=== PATIENT | male | born 1980 | race Caucasian/White ===

== ENCOUNTER 2017-01-28 09:42 | Inpatient (IN) | payer OTHER ==
[2017-01-28 10:03] VITALS: BMI 21.1
--- NOTE | 2017-01-28 11:20 | HP ---
COWS - Scale Resting Pulse: 0= [place] 80 or Below Sweatin= Chills/Flushing Restless Observation: 1= Difficult to Sit Still Pupil Size: 0= Normal to Room Light Bone or Joint Aches: 1= Mild Discomfort Runny Nose/ Eye Tearin= Runny Nose/Eyes GI Upset > 30mins: 2= Nausea/Diarrhea Tremor Observation: 1= Tremor [place], Not Seen Yawning Observation: 1= 1-2x During Session Anxiety or Irritability: 1=Feels Anxious/Irritable Goose Flesh Skin: 0=Smooth Skin COWS Score: 10 CIWA Score - CIWA Score Nausea/Vomitin-Mild Nausea/No Vomiting Muscle Tremors: 4-Moderate,w/Arms Extend Anxiety: 4-Mod. Anxious/Guarded Agitation: 1-Slight > Activity Paroxysmal Sweats: 1-Minimal Palms Moist Orientation: 1-Uncertain about Date Tacttile Disturbances: 1-Very Mild Itch/Numbness Auditory Disturbances: 1-Very Mild Visual Disturbances: 1-Very Mild Sensitivity Headache: 2-Mild CIWA-Ar Total Score: 17 Admission ROS S - HPI Chief Complaint: I want to get off it all, I want to stop Allergies/Adverse Reactions: Allergies Allergy/AdvReac Type Severity Reaction Status Date / Time Penicillins Allergy Mild Hives Verified 01/28/17 11:37 SEAFOOD Allergy Severe Swelling Uncoded 01/28/17 11:37 History of Present Illness: 36 yo gentleman here for detox from alcohol, opiates - no seizures, last detox 7 months ago in [facility], previously here a year ago. Exam Limitations: Clinical Condition - Ebola screening Have you traveled outside of the country in the last 21 days: No Have you had contact with anyone from an Ebola affected area: No Have you been sick,other than usual withdrawal symptoms: No Do you have a fever: No - Review of Systems Constitutional: Loss of Appetite, Malaise, Night Sweats, Changes in sleep, Weakness, Unintentional Wgt. Loss EENT: reports: Nose Congestion, Other (lip sore) Respiratory: reports: No Symptoms reported Cardiac: reports: No Symptoms Reported GI: reports: Poor Appetite, Indigestion : reports: Frequency Musculoskeletal: reports: Back Pain, Muscle Pain Integumentary: reports: No Symptoms Reported Neuro: reports: Headache, Tremors Endocrine: reports: No Symptoms Reported Hematology: reports: No Symptoms Reported Psychiatric: reports: Judgement Intact, Mood/Affect Appropiate, Anxious Other Systems: Reviewed and Negative Patient History - Patient Medical History Hx Anemia: No Hx Asthma: No Hx Chronic Obstructive Pulmonary Disease (COPD): No Hx Cancer: No Hx Cardiac Disorders: No Hx Hypertension: No Hx Hypercholesterolemia: No Hx Pacemaker: No HX Cerebrovascular Accident: No Hx Seizures: No Hx Dementia: No Hx Diabetes: No Hx Gastrointestinal Disorders: Yes (acid reflux) Hx Liver Disease: Yes (Hep C ab positive) Hx Genitourinary Disorders: No Hx Sexually Transmitted Disorders: No Hx Renal Disease (ESRD): No Hx Thyroid Disease: No Hx Human Immunodeficiency Virus (HIV): No (NEGATIVE 3 MONTHS AGO) Hx Hepatitis C: Yes Hx Depression: No Hx Suicide Attempt: No Hx Bipolar Disorder: No Hx Schizophrenia: No - Patient Surgical History Past Surgical History: No Hx Neurologic Surgery: No Hx Cataract Extraction: No Hx Cardiac Surgery: No Hx Lung Surgery: No Hx Breast Surgery: No Hx Breast Biopsy: No Hx Abdominal Surgery: No Hx Appendectomy: No Hx Cholecystectomy: No Hx Genitourinary Surgery: No Hx Section: No Hx Orthopedic Surgery: No Anesthesia Reaction: No - PPD History Previous Implant?: Yes Documented Results: Negative w/o proof Implanted On Prior R Admission?: No Date: 01/21/16 Results: 0 mm PPD to be Administered?: Yes - Reproductive History Patient is a Female of Child Bearing Age (11 -55 yrs old): No (male) - Smoking Cessation Smoking history: Current every day smoker Have you smoked in the past 12 months: Yes Aproximately how many cigarettes per day: 20 If you are a former smoker, when did you quit?: 03/01/13 Cigars Per Day: 0 Hx Chewing Tobacco Use: No Initiated information on smoking cessation: Yes 'Breaking Loose' booklet given: 01/28/17 (give on floor) - Substance & Tx. History Hx Alcohol Use: Yes Hx Substance Use: Yes Substance Use Type: Alcohol, Cocaine, Heroin, Marijuana Hx Substance Use Treatment: Yes (detox, rehab) - Substances Abused Alcohol Route: Oral Frequency: Daily Amount used: six pack 16oz beer, 1 pint vodka Age of first use: 11 Date of Last Use: 01/27/17 Heroin Route: Injection Frequency: Daily Amount used: 15 bags Age of first use: 14 Date of Last Use: 01/27/17 Non-Rx Methadone Route: Oral Frequency: 1-3 times last 30 days Amount used: 40mg Age of first use: 35 Date of Last Use: 01/25/17 Cocaine Route: Injection Frequency: Daily Amount used: 1gm Age of first use: 13 Date of Last Use: 01/27/17 Marijuana/Hashish Route: Inhalation Frequency: Daily Amount used: 2 blunts Age of first use: 11 Date of Last Use: 01/27/17 Alprazolam (Xanax) Route: Oral Frequency: Daily Amount used: six mg Age of first use: 31 Date of Last Use: 01/27/17 Family Disease History - Family Disease History Family Disease History: Diabetes: Father (, HIV), Brother, Sister, Other : Mother (, hiv) Admission Physical Exam [facility] - Vital Signs Vital Signs: Vital Signs - 24 hr 01/28/17 10:00 Temperature 97.6 F Pulse Rate 77 Respiratory 18 Rate Blood Pressure 106/66 - Physical General Appearance: Yes: Nourished, Appropriately Dressed, Mild Distress, Anxious HEENTM: Yes: Hearing grossly Normal, Normal ENT Inspection, Normocephalic, Normal Voice, Other (left lower lip with ulceration) Respiratory: Yes: Normal Breath Sounds, No Respiratory Distress Neck: Yes: No masses,lesions,Nodules, Supple Breast: Yes: Breast Exam Deferred Cardiology: Yes: Regular Rhythm, Regular Rate Abdominal: Yes: Soft Genitourinary: Yes: Frequency Back: Yes: Normal Inspection Musculoskeletal: Yes: full range of Motion, Gait Steady Extremities: Yes: Normal Inspection, Normal Range of Motion, Non-Tender Neurological: Yes: Alert, Motor Strength 5/5, Normal Mood/Affect, Normal Response Integumentary: Yes: Normal Color, Warm, Track [place] Lymphatic: Yes: Within Normal Limits - Diagnostic (1) Alcohol dependence with uncomplicated withdrawal Current Visit: Yes Status: Chronic (2) Cannabis dependence Current Visit: Yes Status: Chronic (3) Cocaine dependence Current Visit: Yes Status: Chronic (4) Gastroesophageal reflux disease Current Visit: Yes Status: Chronic (5) Hepatitis C carrier Current Visit: Yes Status: Chronic (6) Nicotine dependence Current Visit: Yes Status: Chronic Qualifiers: Nicotine product type: cigarettes Substance use status: uncomplicated Qualified Code(s): F17.210 - Nicotine dependence, cigarettes, uncomplicated Comment: all dependencies acute and chronic use (7) Uncomplicated opioid dependence Current Visit: Yes Status: Chronic Cleared for Admission [facility] - Detox or Rehab [facility] Level of Care: Medically Managed Detox Regimen/Protocol: Methadone/Librium [facility] Breath Alcohol Content Breath Alcohol Content: 0 Urine Drug Screen - Results Drug Screen Negative: No Urine Drug Screen Results: THC-Marijuana, INDIGO-Cocaine, OPI-Opiates, BZO- Benzodiazepines, MTD-Methadone, OXY-Oxycodone
[2017-01-28] MEDS ORDERED: hydrOXYzine PAMOATE 50 MG CAPSULE (FP) PO PRN (11:25)
[2017-01-28] MEDS ORDERED: guaiFENesin/D-METHORPHAN HB 10 ML UNIT-DOSE CUPS PO PRN (11:25)
[2017-01-28] MEDS ORDERED: P-EPHED 60MG/TRIPROLIDI 2.5MG TABLET PO PRN (11:25)
[2017-01-28] MEDS ORDERED: NICOTINE POLACRILEX 4 MG GUM BUC PRN (11:25)
[2017-01-28] MEDS ORDERED: MAGNESIUM HYDROX 2400MG/30ML ORAL SUSPENSION 30 ML CUP PO PRN (11:25)
[2017-01-28] MEDS ORDERED: chlordiazePOXIDE HCL 25 MG CAPSULE PO PRN (11:25)
[2017-01-28] MEDS ORDERED: MAGNESIUM CITRATE 300 ML BOTTLE PO PRN (11:25)
[2017-01-28] MEDS ORDERED: MENTHOL/PHENOL 1 EACH UD MM PRN (11:25)
[2017-01-28] MEDS ORDERED: IBUPROFEN 400 MG TABLET (FP) PO PRN (11:25)
[2017-01-28] MEDS ORDERED: MAG HYDROX/AL HYDROX/SIMETH 30 ML UNIT-DOSE CUP PO PRN (11:25)
[2017-01-28] MEDS ORDERED: ACETAMINOPHEN 325 MG TABLET (FP) PO PRN (11:25)
[2017-01-28] MEDS ORDERED: chlordiazePOXIDE HCL 25 MG CAPSULE PO ONE (12:15)
[2017-01-28] MEDS ORDERED: METHADONE HCL 10 MG TABLET (FOR DETOX USE ONLY) PO ONE ×2 (12:30→23:00)
[2017-01-28] MEDS: valACYclovir HCL 500 MG TABLET (FP) PO SCH ×2 (13:20→22:34)
--- NOTE | 2017-01-28 14:46 | CONSULT ---
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 Substance Abuse History: - Smoking Cessation. Smoking history: Current every day smoker. Have you smoked in the past 12 months: Yes. Aproximately how many cigarettes per day: 20. If you are a former smoker, when did you quit?: . Cigars Per Day: 0. Hx Chewing Tobacco Use: No. Initiated information on smoking cessation: Yes. 'Breaking Loose' booklet given: 01/28/17 (give on floor ). - Substance & Tx. History. Hx Alcohol Use: Yes. Hx Substance Use: Yes. Substance Use Type: Alcohol, Cocaine, Heroin, Marijuana. Hx Substance Use Treatment: Yes (detox, rehab). - Substances Abused. Alcohol. Route: Oral. Frequency: Daily. Amount used: six pack 16oz beer, 1 pint vodka. Age of first use: 11. Date of Last Use: 01/27/17. Heroin. Route: Injection. Frequency: Daily. Amount used: 15 bags. Age of first use: 14. Date of Last Use: 01/27/17. Non-Rx Methadone. Route: Oral. Frequency: 1-3 times last 30 days. Amount used: 40mg. Age of first use: 35. Date of Last Use: . Cocaine. Route: Injection. Frequency: Daily. Amount used: 1gm. Age of first use: 13. Date of Last Use: 01/27/17. Marijuana/Hashish. Route: Inhalation. Frequency: Daily. Amount used: 2 blunts. Age of first use: 11. Date of Last Use: 01/27/17. Alprazolam (Xanax). Route: Oral. Frequency: Daily. Amount used: six mg. Age of first use: 31. Date of Last Use: . Confirmed by patient. Medical History: Hepatitis C and GERD. Psychiatric History: Patient denies. Physical/Sexual Abuse/Trauma History: Patient denies. Additional Comment: Urine Drug Screen Results: THC-Marijuana, INDIGO-Cocaine, OPI- Opiates, BZO-Benzodiazepines, MTD-Methadone, OXY-Oxycodone.Noted. Mental Status Exam - Mental Status Exam Alert and Oriented to: Time, Place, Person Cognitive Function: Good Patient Appearance: Unkempt, Disheveled Mood: Nervous, Withdrawn, Anxious Affect: Mood Congruent Patient Behavior: Fatigued, Appropriate, Cooperative Speech Pattern: Clear Voice Loudness: Normal Thought Process: Goal Oriented Thought Disorder: Not Present Hallucinations: Denies Suicidal Ideation: Denies Homicidal Ideation: Denies Insight/Judgement: Poor Sleep: Poorly, Difficulty falling asleep Appetite: Good Muscle strength/Tone: Normal Gait/Station: Normal Psychiatric Findings - Problem List ([place] 1, 2,3) (1) Alcohol dependence with uncomplicated withdrawal Current Visit: Yes Status: Acute (2) Cannabis dependence Current Visit: Yes Status: Acute (3) Cocaine dependence Current Visit: Yes Status: Acute (4) Uncomplicated opioid dependence Current Visit: Yes Status: Chronic (5) Sedative, hypnotic or anxiolytic dependence with withdrawal, uncomplicated Current Visit: Yes Status: Acute (6) Nicotine dependence Current Visit: Yes Status: Acute Qualifiers: Nicotine product type: cigarettes Substance use status: uncomplicated Qualified Code(s): F17.210 - Nicotine dependence, cigarettes, uncomplicated Comment: all dependencies acute and chronic use (7) Substance induced mood disorder Current Visit: Yes Status: Acute (8) Gastroesophageal reflux disease Current Visit: Yes Status: Chronic (9) Insomnia Current Visit: Yes Status: Chronic - Initial Treatment Plan Initial Treatment Plan: Psychoeducation.Detoxification.Seroquel 50 mg po hs ( patient's request).Side effects/benefits discussed with patient.He agres with this plan.Observation.
--- NOTE | 2017-01-28 14:59 | EKG ---
Test Reason : Blood Pressure : / mmHG Vent. Rate : 071 BPM Atrial Rate : 071 BPM P-R Int : 122 ms QRS Dur : 082 ms QT Int : 418 ms P-R-T Axes : 064 -12 030 degrees QTc Int : 454 ms NORMAL SINUS RHYTHM MINIMAL VOLTAGE CRITERIA FOR LVH, MAY BE NORMAL VARIANT NO PREVIOUS ECGS AVAILABLE Confirmed by JONH NINO MD ([id number]) on 01/28/2017 2:59:16 PM Referred By: Confirmed By:JONH NINO MD
[2017-01-28 17:15] LABS: URINE APPEARANCE CLEAR; URINE BILIRUBIN NEGATIVE (NEGATIVE); URINE BLOOD NEGATIVE (NEGATIVE); URINE COLOR YELLOW; URINE GLUCOSE (UA) NEGATIVE (NEGATIVE); URINE KETONE NEGATIVE (NEGATIVE); URINE LEUK ESTERASE NEGATIVE (NEGATIVE); URINE NITRITE NEGATIVE (NEGATIVE); URINE PROTEIN NEGATIVE (NEGATIVE); URINE UROBILINOGEN 4.0 E.U/dl E.U./dl (0.2-1.0)
[2017-01-28] MEDS: chlordiazePOXIDE HCL 25 MG CAPSULE PO SCH ×2 (17:35→22:34)
[2017-01-28] MEDS ORDERED: QUEtiapine FUMARATE 50 MG TABLET PO SCH (22:00)
[2017-01-28] MEDS ORDERED: diphenhydrAMINE HCL 50 MG CAPSULE PO PRN (22:00)
[2017-01-28] MEDS: THIAMINE HCL 100 MG TABLET (FP) PO SCH (22:33)
[2017-01-28] MEDS: QUEtiapine FUMARATE 50 MG TABLET PO SCH (22:34)
[2017-01-29] MEDS ORDERED: TRIMETHOBENZAMIDE HCL 200MG/2ML INJ IM PRN (04:20)
[2017-01-29] MEDS: chlordiazePOXIDE HCL 25 MG CAPSULE PO SCH ×4 (06:51→22:56)
[2017-01-29] MEDS ORDERED: METHADONE HCL 10 MG TABLET (FOR DETOX USE ONLY) PO SCH (10:00)
[2017-01-29] MEDS: valACYclovir HCL 500 MG TABLET (FP) PO SCH ×2 (10:18→22:56)
[2017-01-29] MEDS: PRENATAL VITAMINS W/ FOLIC ACID TABLET (FP) PO SCH (10:18)
[2017-01-29] MEDS: PANTOPRAZOLE 40 MG TABLET (FP) PO SCH (10:18)
[2017-01-29 11:19] LABS: ALBUMIN 3.1 g/dl (3.4-5.0); CALCIUM 8.5 mg/dL (8.5-10.1)
[2017-01-29 11:25] LABS: ALK PHOS 81 U/L (45-117); ANION GAP 6 (8-16); BILIRUBIN,TOTAL 0.5 mg/dL (0.2-1.0); CO2 31 mmol/L (21-32); CREATININE 0.7 mg/dL (0.7-1.3); GLUCOSE,RANDOM 102 mg/dL (74-106); SGOT/AST 38 U/L (15-37); SGPT/ALT 46 U/L (12-78); TOT PROT 7.1 g/dl (6.4-8.2)
[2017-01-29 11:40] LABS: MCH 29.3 pg (25.7-33.7); MCHC 33.5 g/dl (32.0-35.9); MEAN CELL VOLUME 87.5 fl (80-96); MEAN PLT VOLUME 9.7 fl (7.5-11.1); PLATELET COUNT 174 K/MM3 (134-434); WHITE BLOOD COUNT 8.8 K/mm3 (4.0-10.0)
[2017-01-29 11:45] LABS: HIV 1 & 2 AB NEGATIVE; HIV 1 AGp24 NEGATIVE
[2017-01-29] MEDS ORDERED: ONDANSETRON *ODT* 4 MG TABLET SL PRN (11:47)
--- NOTE | 2017-01-29 11:50 | PN ---
[facility] CIWA - CIWA Score Nausea/Vomitin Muscle Tremors: 4-Moderate,w/Arms Extend Anxiety: 4-Mod. Anxious/Guarded Agitation: 4-Moderately Restless Paroxysmal Sweats: 3 Orientation: 0-Oriented Tacttile Disturbances: 0-None Auditory Disturbances: 0-None Visual Disturbances: 0-None Headache: 0-None Present CIWA-Ar Total Score: 20 [facility] COWS - Scale Resting Pulse: 1= [place] 81-100 Sweatin=Flushed/Facial Moisture Restless Observation: 1= Difficult to Sit Still Pupil Size: 0= Normal to Room Light Bone or Joint Aches: 2= Severe Diffuse Aches Runny Nose/ Eye Tearin= Runny Nose/Eyes GI Upset > 30mins: 3= Vomiting/Diarrhea Tremor Observation of Outstretched Hands: 2= Slight Tremor Visible Yawning Observation: 1= 1-2x During Session Anxiety or Irritability: 2=Irritable/Anxious Goose Flesh Skin: 0=Smooth Skin COWS Score: 16 S Progress Note (SOAP) Subjective: Anxiety,tremors,sweating,interrupted sleep,restless,muscle aches Objective: 01/29/17 11:49 Vital Signs - 8 hr 01/29/17 01/29/17 01/29/17 03:52 06:52 11:15 Temperature 98.0 F 96.8 F L Pulse Rate 88 92 H Respiratory 18 18 20 Rate Blood Pressure 127/82 127/86 Laboratory Results - last 24 hr 01/28/17 01/29/17 01/29/17 12:23 08:00 08:00 Sodium 140 Potassium 4.2 Chloride 103 Carbon Dioxide 31 Anion Gap 6 L BUN 14 Creatinine 0.7 Creat Clearance w eGFR > 60 Random Glucose 102 Calcium 8.5 Total Bilirubin 0.5 D AST 38 H ALT 46 Alkaline Phosphatase 81 Total Protein 7.1 Albumin 3.1 L Urine Color Yellow Urine Appearance Clear Urine pH 6.0 D Ur Specific [place] 1.019 Urine Protein Negative Urine Glucose (UA) Negative Urine Ketones Negative Urine Blood Negative Urine Nitrite Negative Urine Bilirubin Negative Urine Urobilinogen 4.0 e.u/dl Ur Leukocyte Esterase Negative HIV 1&2 Antibody Screen Negative HIV P24 Antigen Negative labs noted Assessment: 01/29/17 11:50 Withdrawal sx. Plan: Continue detox
[2017-01-29] MEDS: TRIMETHOBENZAMIDE HCL 200MG/2ML INJ IM PRN (19:52)
[2017-01-29] MEDS: THIAMINE HCL 100 MG TABLET (FP) PO SCH (22:56)
[2017-01-29] MEDS: QUEtiapine FUMARATE 50 MG TABLET PO SCH (22:56)
[2017-01-30] MEDS: chlordiazePOXIDE HCL 25 MG CAPSULE PO SCH ×2 (06:22→10:26)
[2017-01-30] MEDS: LOPERAMIDE HCL 2 MG CAPSULE PO PRN ×3 (09:06→22:23)
[2017-01-30] MEDS: PRENATAL VITAMINS W/ FOLIC ACID TABLET (FP) PO SCH (10:26)
[2017-01-30] MEDS: valACYclovir HCL 500 MG TABLET (FP) PO SCH (10:26)
[2017-01-30] MEDS: METHADONE HCL 5 MG TABLET (FOR DETOX USE ONLY) PO SCH (10:26)
[2017-01-30] MEDS: PANTOPRAZOLE 40 MG TABLET (FP) PO SCH (10:26)
--- NOTE | 2017-01-30 11:43 | PN ---
[facility] CIWA - CIWA Score Nausea/Vomitin-No Nausea/No Vomiting Muscle Tremors: 4-Moderate,w/Arms Extend Anxiety: 4-Mod. Anxious/Guarded Agitation: 4-Moderately Restless Paroxysmal Sweats: 1-Minimal Palms Moist Orientation: 0-Oriented Tacttile Disturbances: 3-Moderate Itch/Numb/Burn Auditory Disturbances: 0-None Visual Disturbances: 0-None Headache: 0-None Present CIWA-Ar Total Score: 16 S COWS - Scale Resting Pulse: 1= [place] 81-100 Sweatin= Chills/Flushing Restless Observation: 3= Extraneous Movement Pupil Size: 2= Moderately Dilated Bone or Joint Aches: 4=Acute Joint/Muscle Pain Runny Nose/ Eye Tearin= Nasal Congestion GI Upset > 30mins: 1= Stomach Cramp Tremor Observation of Outstretched Hands: 1= Tremor [place], Not Seen Yawning Observation: 1= 1-2x During Session Anxiety or Irritability: 2=Irritable/Anxious Goose Flesh Skin: 0=Smooth Skin COWS Score: 17 [facility] Progress Note (SOAP) Subjective: ANXIETY,SWEATS,IRRITABILITY,NAUSEA.VOMITING,DIARRHEA,INTERMITTENT SLEEP. Objective: 01/30/17 11:44 Laboratory Last Values WBC 8.8 K/mm3 (4.0-10.0) 01/29/17 08:00 RBC 4.76 M/mm3 (4.00-5.60) 01/29/17 08:00 Hgb 13.9 GM/dL (11.7-16.9) 01/29/17 08:00 Hct 41.6 % (35.4-49) 01/29/17 08:00 MCV 87.5 fl (80-96) 01/29/17 08:00 MCHC 33.5 g/dl (32.0-35.9) 01/29/17 08:00 RDW 14.0 % (11.9-15.9) 01/29/17 08:00 Plt Count 174 K/MM3 (134-434) 01/29/17 08:00 MPV 9.7 fl (7.5-11.1) 01/29/17 08:00 Sodium 140 mmol/L (136-145) 01/29/17 08:00 Potassium 4.2 mmol/L (3.5-5.1) 01/29/17 08:00 Chloride 103 mmol/L (98-107) 01/29/17 08:00 Carbon Dioxide 31 mmol/L (21-32) 01/29/17 08:00 Anion Gap 6 (8-16) L 01/29/17 08:00 BUN 14 mg/dL (7-18) 01/29/17 08:00 Creatinine 0.7 mg/dL (0.7-1.3) 01/29/17 08:00 Creat Clearance w eGFR > 60 (>60) 01/29/17 08:00 Random Glucose 102 mg/dL (74-106) 01/29/17 08:00 Calcium 8.5 mg/dL (8.5-10.1) 01/29/17 08:00 Total Bilirubin 0.5 mg/dL (0.2-1.0) D 01/29/17 08:00 AST 38 U/L (15-37) H 01/29/17 08:00 ALT 46 U/L (12-78) 01/29/17 08:00 Alkaline Phosphatase 81 U/L (45-117) 01/29/17 08:00 Total Protein 7.1 g/dl (6.4-8.2) 01/29/17 08:00 Albumin 3.1 g/dl (3.4-5.0) L 01/29/17 08:00 Urine Color Yellow 01/28/17 12:23 Urine Appearance Clear 01/28/17 12:23 Urine pH 6.0 (5.0-8.0) D 01/28/17 12:23 Ur Specific [place] 1.019 (1.001-1.035) 01/28/17 12:23 Urine Protein Negative (NEGATIVE) 01/28/17 12:23 Urine Glucose (UA) Negative (NEGATIVE) 01/28/17 12:23 Urine Ketones Negative (NEGATIVE) 01/28/17 12:23 Urine Blood Negative (NEGATIVE) 01/28/17 12:23 Urine Nitrite Negative (NEGATIVE) 01/28/17 12:23 Urine Bilirubin Negative (NEGATIVE) 01/28/17 12:23 Urine Urobilinogen 4.0 e.u/dl E.U./dl (0.2-1.0) 01/28/17 12:23 Ur Leukocyte Esterase Negative (NEGATIVE) 01/28/17 12:23 RPR Titer Nonreactive (NONREACTIVE) 01/29/17 08:00 HIV 1&2 Antibody Screen Negative 01/29/17 08:00 HIV P24 Antigen Negative 01/29/17 08:00 Vital Signs Temperature 96.3 F L 01/30/17 11:06 Pulse Rate 89 01/30/17 11:06 Respiratory Rate 20 01/30/17 11:06 Blood Pressure 114/85 01/30/17 11:06 O2 Sat by Pulse Oximetry (%) Assessment: 01/30/17 11:45 WITHDRAWAL SX Plan: CONTINUE DETOX TIGAN AND IMODIUM DIRECTED
[2017-01-30] MEDS: chlordiazePOXIDE 5 MG CAPSULE PO SCH ×2 (17:55→22:22)
[2017-01-30] MEDS: TRIMETHOBENZAMIDE HCL 200MG/2ML INJ IM PRN (17:59)
[2017-01-30] MEDS: THIAMINE HCL 100 MG TABLET (FP) PO SCH (22:21)
[2017-01-30] MEDS: QUEtiapine FUMARATE 50 MG TABLET PO SCH (22:22)
[2017-01-31] MEDS: chlordiazePOXIDE 5 MG CAPSULE PO SCH ×2 (05:54→10:31)
[2017-01-31] MEDS: PRENATAL VITAMINS W/ FOLIC ACID TABLET (FP) PO SCH (10:31)
[2017-01-31] MEDS: METHADONE HCL 5 MG TABLET (FOR DETOX USE ONLY) PO SCH (10:31)
[2017-01-31] MEDS: PANTOPRAZOLE 40 MG TABLET (FP) PO SCH (10:31)
--- NOTE | 2017-01-31 10:31 | PN ---
[facility] Progress Note (SOAP) Subjective: NAUSEA AND VOMITING RESOLVED. DIARRHEA PERSISTS. ANXIETY,SWEATS/CHILLS. Objective: 01/31/17 10:30 Vital Signs Temperature 98.9 F 01/31/17 09:40 Pulse Rate 81 01/31/17 09:40 Respiratory Rate 16 01/31/17 09:40 Blood Pressure 117/70 01/31/17 09:40 O2 Sat by Pulse Oximetry (%) Laboratory Last Values WBC 8.8 K/mm3 (4.0-10.0) 01/29/17 08:00 RBC 4.76 M/mm3 (4.00-5.60) 01/29/17 08:00 Hgb 13.9 GM/dL (11.7-16.9) 01/29/17 08:00 Hct 41.6 % (35.4-49) 01/29/17 08:00 MCV 87.5 fl (80-96) 01/29/17 08:00 MCHC 33.5 g/dl (32.0-35.9) 01/29/17 08:00 RDW 14.0 % (11.9-15.9) 01/29/17 08:00 Plt Count 174 K/MM3 (134-434) 01/29/17 08:00 MPV 9.7 fl (7.5-11.1) 01/29/17 08:00 Sodium 140 mmol/L (136-145) 01/29/17 08:00 Potassium 4.2 mmol/L (3.5-5.1) 01/29/17 08:00 Chloride 103 mmol/L (98-107) 01/29/17 08:00 Carbon Dioxide 31 mmol/L (21-32) 01/29/17 08:00 Anion Gap 6 (8-16) L 01/29/17 08:00 BUN 14 mg/dL (7-18) 01/29/17 08:00 Creatinine 0.7 mg/dL (0.7-1.3) 01/29/17 08:00 Creat Clearance w eGFR > 60 (>60) 01/29/17 08:00 Random Glucose 102 mg/dL (74-106) 01/29/17 08:00 Calcium 8.5 mg/dL (8.5-10.1) 01/29/17 08:00 Total Bilirubin 0.5 mg/dL (0.2-1.0) D 01/29/17 08:00 AST 38 U/L (15-37) H 01/29/17 08:00 ALT 46 U/L (12-78) 01/29/17 08:00 Alkaline Phosphatase 81 U/L (45-117) 01/29/17 08:00 Total Protein 7.1 g/dl (6.4-8.2) 01/29/17 08:00 Albumin 3.1 g/dl (3.4-5.0) L 01/29/17 08:00 Urine Color Yellow 01/28/17 12:23 Urine Appearance Clear 01/28/17 12:23 Urine pH 6.0 (5.0-8.0) D 01/28/17 12:23 Ur Specific [place] 1.019 (1.001-1.035) 01/28/17 12:23 Urine Protein Negative (NEGATIVE) 01/28/17 12:23 Urine Glucose (UA) Negative (NEGATIVE) 01/28/17 12:23 Urine Ketones Negative (NEGATIVE) 01/28/17 12:23 Urine Blood Negative (NEGATIVE) 01/28/17 12:23 Urine Nitrite Negative (NEGATIVE) 01/28/17 12:23 Urine Bilirubin Negative (NEGATIVE) 01/28/17 12:23 Urine Urobilinogen 4.0 e.u/dl E.U./dl (0.2-1.0) 01/28/17 12:23 Ur Leukocyte Esterase Negative (NEGATIVE) 01/28/17 12:23 RPR Titer Nonreactive (NONREACTIVE) 01/29/17 08:00 Hepatitis C Antibody >11.0 s/co ratio (0.0-0.9) H 01/29/17 08:00 HIV 1&2 Antibody Screen Negative 01/29/17 08:00 HIV P24 Antigen Negative 01/29/17 08:00 LABS NOTED. HEP C (+) HX Assessment: 01/31/17 10:30 WITHDRAWAL SX Plan: CONTINUE DETOX D/C IMODIUM LOMOTIL DIRECTED
[2017-01-31] MEDS ORDERED: DIPHENOXYLATE 2.5/ATROPINE.025 1 COMBO TABLET PO PRN (10:32)
[2017-01-31] MEDS: chlordiazePOXIDE HCL 10 MG CAPSULE PO SCH ×2 (17:36→22:29)
[2017-01-31] MEDS: THIAMINE HCL 100 MG TABLET (FP) PO SCH (22:29)
[2017-01-31] MEDS: QUEtiapine FUMARATE 50 MG TABLET PO SCH (22:30)
[2017-02-01] MEDS: chlordiazePOXIDE HCL 10 MG CAPSULE PO SCH ×2 (05:55→10:27)
[2017-02-01] MEDS ORDERED: METHADONE HCL 10 MG TABLET (FOR DETOX USE ONLY) PO SCH (10:00)
[2017-02-01] MEDS: PANTOPRAZOLE 40 MG TABLET (FP) PO SCH (10:27)
[2017-02-01] MEDS: PRENATAL VITAMINS W/ FOLIC ACID TABLET (FP) PO SCH (10:27)
--- NOTE | 2017-02-01 11:21 | PN ---
[facility] Progress Note (SOAP) Subjective: N/V/D RESOLVED. ANXIETY,SWEATS/CHILLS. Objective: 02/01/17 11:21 Vital Signs Temperature 97.7 F 02/01/17 09:40 Pulse Rate 88 02/01/17 09:40 Respiratory Rate 18 02/01/17 09:40 Blood Pressure 105/68 02/01/17 09:40 O2 Sat by Pulse Oximetry (%) Assessment: 02/01/17 11:21 WITHDRAWAL SX Plan: CONTINUE DETOX
[2017-02-01] MEDS: THIAMINE HCL 100 MG TABLET (FP) PO SCH (22:30)
[2017-02-01] MEDS: QUEtiapine FUMARATE 50 MG TABLET PO SCH (22:30)
[2017-02-02] MEDS ORDERED: METHADONE HCL 5 MG TABLET (FOR DETOX USE ONLY) PO SCH (06:00)
[2017-02-02 06:53] VITALS: BP 101/62; PULSE 78; TEMP 97.2
--- NOTE | 2017-02-02 09:50 | DS ---
[facility] Detox Discharge Summary Admission Date: 01/28/17 Discharge Date: 02/02/17 - History Present History: Alcohol Dependence, Cannabis Dependence, Cocaine Dependence, Opioid Dependence, Sedative Dependence Additional Comments: DETOX COMPLETED. ALERT O X 3. NAD. Pertinent Past History: HEPATITIS C - Physical Exam Results Vital Signs: Vital Signs Temperature 97.2 F L 02/02/17 06:53 Pulse Rate 78 02/02/17 06:53 Respiratory Rate 18 02/02/17 06:53 Blood Pressure 101/62 02/02/17 06:53 O2 Sat by Pulse Oximetry (%) Pertinent Admission Physical Exam Findings: WITHDRAWAL SX - Treatment Hospital Course: Detox Protocol Followed, Detoxed Safely, Responded well, Discharged Condition Good - Medication Discharge Medications: Ambulatory Orders Pantoprazole Sodium [Protonix -] 40 mg PO DAILY 01/28/17 Quetiapine Fumarate [Seroquel -] 50 mg PO HS #30 tablet 01/28/17 - Diagnosis (1) Alcohol dependence with uncomplicated withdrawal Status: Acute (2) Sedative, hypnotic or anxiolytic dependence with withdrawal, uncomplicated Status: Acute (3) Opioid dependence with uncomplicated intoxication Status: Chronic (4) Nicotine dependence Status: Acute Qualifiers: Nicotine product type: cigarettes Substance use status: in withdrawal Qualified Code(s): F17.213 - Nicotine dependence, cigarettes, with withdrawal (5) Gastroesophageal reflux disease Status: Chronic (6) Hepatitis C carrier Status: Chronic (7) Cocaine dependence, uncomplicated Status: Acute (8) Cannabis dependence, uncomplicated Status: Acute (9) Substance induced mood disorder Status: Acute (10) Insomnia Status: Chronic - AMA Did Patient Leave Against Medical Advice: No
== END 2017-02-02 09:15 | disposition home or self-care (01) | DRG 773 ==
LOC: YASAS 09:42 → Y3N 11:58
PROVIDERS: ADMIT Internal Medicine; ATTEND Internal Medicine
PROC: HZ2ZZZZ Detoxification Services for Substance Abuse Treatment (ICD-10-PCS; principal; 2017-02-02)
DX: F11.20 Opioid dependence, uncomplicated (principal); F13.230 Sedative, hypnotic or anxiolytic dependence with withdrawal, uncomplicated; F10.230 Alcohol dependence with withdrawal, uncomplicated; F17.213 Nicotine dependence, cigarettes, with withdrawal; F14.20 Cocaine dependence, uncomplicated; F12.20 Cannabis dependence, uncomplicated; F19.24 Other psychoactive substance dependence with psychoactive substance-induced mood disorder; G47.00 Insomnia, unspecified; B18.2 Chronic viral hepatitis C
CPT/HCPCS: 36415; 80053; 81003; 85027; 86593; 87389; 93005; 93010

== ENCOUNTER 2017-03-09 09:42 | Inpatient (IN) | payer OTHER ==
[2017-03-09 10:55] VITALS: BMI 22.5
--- NOTE | 2017-03-09 12:24 | HP ---
COWS - Scale Resting Pulse: 0= [place] 80 or Below Sweatin=Flushed/Facial Moisture Restless Observation: 1= Difficult to Sit Still Pupil Size: 2= Moderately Dilated Bone or Joint Aches: 2= Severe Diffuse Aches Runny Nose/ Eye Tearin= Runny Nose/Eyes GI Upset > 30mins: 2= Nausea/Diarrhea Tremor Observation: 2= Slight Tremor Visible Yawning Observation: 1= 1-2x During Session Anxiety or Irritability: 2=Irritable/Anxious Goose Flesh Skin: 0=Smooth Skin COWS Score: 16 CIWA Score - CIWA Score Nausea/Vomitin Muscle Tremors: 4-Moderate,w/Arms Extend Anxiety: 4-Mod. Anxious/Guarded Agitation: 4-Moderately Restless Paroxysmal Sweats: 3 Orientation: 0-Oriented Tacttile Disturbances: 0-None Auditory Disturbances: 0-None Visual Disturbances: 0-None Headache: 1-Very Mild CIWA-Ar Total Score: 18 Admission ROS BHS - HPI Chief Complaint: Withdrawal sx. Allergies/Adverse Reactions: Allergies Allergy/AdvReac Type Severity Reaction Status Date / Time shellfish derived Allergy Severe Swelling Verified 03/09/17 11:18 Penicillins Allergy Mild Hives Verified 03/09/17 11:17 SHELLFISH Allergy Severe Swelling Uncoded 03/09/17 11:18 History of Present Illness: 36 y/o man with a long hx. of drug & alcohol dependence is admitted for detox. Pt. has been in previous detox, denies significant sobriety. Exam Limitations: No Limitations - Ebola screening Have you traveled outside of the country in the last 21 days: No Have you had contact with anyone from an Ebola affected area: No Have you been sick,other than usual withdrawal symptoms: No Do you have a fever: No - Review of Systems Constitutional: Diaphoresis EENT: reports: Nose Congestion Respiratory: reports: No Symptoms reported Cardiac: reports: No Symptoms Reported GI: reports: Diarrhea, Nausea, Abdominal cramping : reports: No Symptoms Reported Musculoskeletal: reports: Muscle Pain Integumentary: reports: Sweating Neuro: reports: Headache, Tremors Endocrine: reports: No Symptoms Reported Hematology: reports: No Symptoms Reported Psychiatric: reports: No Sypmtoms Reported Other Systems: Reviewed and Negative Patient History - Patient Medical History Hx Anemia: No Hx Asthma: No Hx Chronic Obstructive Pulmonary Disease (COPD): No Hx Cancer: No Hx Cardiac Disorders: No Hx Congestive Heart Failure: No Hx Hypertension: No Hx Hypercholesterolemia: No Hx Pacemaker: No HX Cerebrovascular Accident: No Hx Seizures: No Hx Dementia: No Hx Diabetes: No Hx Gastrointestinal Disorders: Yes (acid reflux) Hx Liver Disease: Yes (Hep C ab positive) Hx Genitourinary Disorders: No Hx Sexually Transmitted Disorders: No Hx Renal Disease (ESRD): No Hx Thyroid Disease: No Hx Human Immunodeficiency Virus (HIV): No Hx Hepatitis C: Yes Hx Depression: No Hx Suicide Attempt: No Hx Bipolar Disorder: No Hx Schizophrenia: No Other Medical History: Insomnia - Patient Surgical History Past Surgical History: No Hx Neurologic Surgery: No Hx Cataract Extraction: No Hx Cardiac Surgery: No Hx Lung Surgery: No Hx Breast Surgery: No Hx Breast Biopsy: No Hx Abdominal Surgery: No Hx Appendectomy: No Hx Cholecystectomy: No Hx Genitourinary Surgery: No Hx Section: No Hx Orthopedic Surgery: No Anesthesia Reaction: No - PPD History Previous Implant?: Yes Documented Results: Negative w/proof Implanted On Prior R Admission?: Yes Date: 01/30/17 Results: 0 mm PPD to be Administered?: No - Smoking Cessation Smoking history: Current every day smoker Have you smoked in the past 12 months: Yes Aproximately how many cigarettes per day: 20 Cigars Per Day: 0 Hx Chewing Tobacco Use: No Initiated information on smoking cessation: Yes 'Breaking Loose' booklet given: 03/09/17 - Substance & Tx. History Hx Alcohol Use: Yes Hx Substance Use: Yes Substance Use Type: Alcohol, Cocaine, Heroin, Tranquilizers Hx Substance Use Treatment: Yes (Detox & Rehab) - Substances Abused Heroin Route: Injection Frequency: Daily Amount used: 15 bags Age of first use: 14 Date of Last Use: 03/08/17 Cocaine Route: Injection Frequency: Daily Amount used: $60-70 Age of first use: 13 Date of Last Use: 03/08/17 Xanax Route: Oral Frequency: Daily Amount used: 4 mg. Age of first use: 31 Date of Last Use: 03/08/17 Alcohol-beer/vodka Route: Oral Frequency: Daily Amount used: 1-6 pk./1 pt. Age of first use: 11 Date of Last Use: 03/08/17 Marijuana Route: Smoking Frequency: Daily Amount used: $10 Age of first use: 11 Date of Last Use: 03/08/17 Family Disease History - Family Disease History Family Disease History: Diabetes: Father (, HIV), Brother, Sister, Other : Father, Mother (, hiv) Admission Physical Exam [facility] - Vital Signs Vital Signs: Vital Signs - 24 hr 03/09/17 10:49 Temperature 96.7 F L Pulse Rate 52 L Respiratory 18 Rate Blood Pressure 141/85 - Physical General Appearance: Yes: Tremorous, Irritable, Sweating, Anxious HEENTM: Yes: Nasal Congestion, Rhinorrhea Respiratory: Yes: Chest Non-Tender, Lungs Clear, Normal Breath Sounds Neck: Yes: Supple Breast: Yes: Breast Exam Deferred Cardiology: Yes: Regular Rhythm, Regular Rate, S1, S2 Abdominal: Yes: Normal Bowel Sounds, Non Tender, Soft Genitourinary: Yes: Within Normal Limits Back: Yes: Within Normal Limits Musculoskeletal: Yes: Muscle Pain Extremities: Yes: Tremors Neurological: Yes: Fully Oriented, Alert Integumentary: Yes: Diaphoresis, Track [place] Lymphatic: Yes: Within Normal Limits - Diagnostic (1) Alcohol dependence with uncomplicated withdrawal Current Visit: Yes Status: Acute (2) Cannabis dependence, uncomplicated Current Visit: Yes Status: Acute (3) Cocaine dependence, uncomplicated Current Visit: Yes Status: Acute (4) Sedative, hypnotic or anxiolytic dependence with withdrawal, uncomplicated Current Visit: Yes Status: Acute (5) Gastroesophageal reflux disease Current Visit: Yes Status: Chronic (6) Hepatitis C carrier Current Visit: No Status: Chronic (7) Opioid dependence with withdrawal Current Visit: Yes Status: Acute Cleared for Admission [facility] - Detox or Rehab [facility] Level of Care: Medically Managed Detox Regimen/Protocol: Methadone/Valium [facility] Breath Alcohol Content Breath Alcohol Content: 0 Urine Drug Screen - Results Drug Screen Negative: No Urine Drug Screen Results: THC-Marijuana, INDIGO-Cocaine, OPI-Opiates, BZO- Benzodiazepines
[2017-03-09] MEDS ORDERED: IBUPROFEN 400 MG TABLET (FP) PO PRN (12:33)
[2017-03-09] MEDS ORDERED: P-EPHED 60MG/TRIPROLIDI 2.5MG TABLET PO PRN (12:33)
[2017-03-09] MEDS ORDERED: MAG HYDROX/AL HYDROX/SIMETH 30 ML UNIT-DOSE CUP PO PRN (12:33)
[2017-03-09] MEDS ORDERED: diphenhydrAMINE HCL 50 MG CAPSULE PO PRN (12:33)
[2017-03-09] MEDS ORDERED: ACETAMINOPHEN 325 MG TABLET (FP) PO PRN (12:33)
[2017-03-09] MEDS ORDERED: hydrOXYzine PAMOATE 50 MG CAPSULE (FP) PO PRN (12:33)
[2017-03-09] MEDS ORDERED: NICOTINE POLACRILEX 2 MG GUM BUC PRN (12:33)
[2017-03-09] MEDS ORDERED: MAGNESIUM CITRATE 300 ML BOTTLE PO PRN (12:33)
[2017-03-09] MEDS ORDERED: guaiFENesin/D-METHORPHAN HB 10 ML UNIT-DOSE CUPS PO PRN (12:33)
[2017-03-09] MEDS ORDERED: LOPERAMIDE HCL 2 MG CAPSULE PO PRN (12:33)
[2017-03-09] MEDS ORDERED: MENTHOL/PHENOL 1 EACH UD MM PRN (12:33)
[2017-03-09] MEDS ORDERED: MAGNESIUM HYDROX 2400MG/30ML ORAL SUSPENSION 30 ML CUP PO PRN (12:33)
[2017-03-09] MEDS ORDERED: diazePAM 5 MG TABLET PO ONE (13:02)
[2017-03-09] MEDS ORDERED: METHADONE HCL 10 MG TABLET (FOR DETOX USE ONLY) PO ONE ×2 (13:04→23:00)
[2017-03-09] MEDS: PANTOPRAZOLE 40 MG TABLET (FP) PO SCH (14:05)
[2017-03-09] MEDS: diazePAM 5 MG TABLET PO SCH ×2 (14:07→22:20)
[2017-03-09] MEDS: NICOTINE 21 MG/24 HOURS TOPICAL PATCH TD SCH (14:07)
[2017-03-09] MEDS: diazePAM 5 MG TABLET PO PRN (17:48)
[2017-03-09] MEDS: THIAMINE HCL 100 MG TABLET (FP) PO SCH (22:20)
[2017-03-10] MEDS: diazePAM 5 MG TABLET PO SCH ×3 (08:23→22:16)
[2017-03-10] MEDS ORDERED: METHADONE HCL 10 MG TABLET (FOR DETOX USE ONLY) PO SCH (10:00)
[2017-03-10] MEDS: PANTOPRAZOLE 40 MG TABLET (FP) PO SCH (10:39)
[2017-03-10] MEDS: PRENATAL VITAMINS W/ FOLIC ACID TABLET (FP) PO SCH (10:39)
[2017-03-10] MEDS: diazePAM 5 MG TABLET PO PRN ×2 (10:40→17:23)
[2017-03-10] MEDS: NICOTINE 21 MG/24 HOURS TOPICAL PATCH TD SCH (10:41)
[2017-03-10 11:21] LABS: MCH 28.5 pg (25.7-33.7); MCHC 32.6 g/dl (32.0-35.9); MEAN CELL VOLUME 87.5 fl (80-96); PLATELET COUNT 221 K/MM3 (134-434); RDW 14.2 % (11.9-15.9); WHITE BLOOD COUNT 5.5 K/mm3 (4.0-10.0)
--- NOTE | 2017-03-10 11:28 | EKG ---
Test Reason : Blood Pressure : / mmHG Vent. Rate : 061 BPM Atrial Rate : 061 BPM P-R Int : 112 ms QRS Dur : 090 ms QT Int : 430 ms P-R-T Axes : 066 -14 037 degrees QTc Int : 432 ms NORMAL SINUS RHYTHM WHEN COMPARED WITH ECG OF 28-JAN-2017 13:02, T WAVE AMPLITUDE HAS DECREASED IN LATERAL LEADS Confirmed by JONH NINO MD ([id number]) on 03/10/2017 11:28:20 AM Referred By: Confirmed By:JONH NINO MD
[2017-03-10 11:43] LABS: ALBUMIN 3.8 g/dl (3.4-5.0); ALK PHOS 90 U/L (45-117); ANION GAP 6 (8-16); BILIRUBIN,TOTAL 0.7 mg/dL (0.2-1.0); CALCIUM 9.1 mg/dL (8.5-10.1); CO2 31 mmol/L (21-32); COCKROFT - GAULT 102.81; CREATININE 0.9 mg/dL (0.7-1.3); GLUCOSE,RANDOM 129 mg/dL (74-106); SGOT/AST 47 U/L (15-37); SGPT/ALT 45 U/L (12-78); TOT PROT 8.2 g/dl (6.4-8.2)
[2017-03-10 12:05] LABS: HIV 1 & 2 AB NEGATIVE; HIV 1 AGp24 NEGATIVE
--- NOTE | 2017-03-10 12:57 | CONSULT ---
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 Substance Abuse History: - Smoking Cessation. Smoking history: Current every day smoker. Have you smoked in the past 12 months: Yes. Aproximately how many cigarettes per day: 20. Cigars Per Day: 0. Hx Chewing Tobacco Use: No. Initiated information on smoking cessation: Yes. 'Breaking Loose' booklet given : 03/09/17. - Substance & Tx. History. Hx Alcohol Use: Yes. Hx Substance Use : Yes. Substance Use Type: Alcohol, Cocaine, Heroin, Tranquilizers. Hx Substance Use Treatment: Yes (Detox & Rehab). - Substances Abused. Heroin. Route: Injection. Frequency: Daily. Amount used: 15 bags. Age of first use : 14. Date of Last Use: 03/08/17. Cocaine. Route: Injection. Frequency: Daily. Amount used: $60-70. Age of first use: 13. Date of Last Use: . Xanax. Route: Oral. Frequency: Daily. Amount used: 4 mg. Age of first use: 31. Date of Last Use: 03/08/17. Alcohol-beer/vodka. Route: Oral. Frequency: Daily. Amount used: 1-6 pk./1 pt. Age of first use: 11. Date of Last Use: 03/08/17. Marijuana. Route: Smoking. Frequency: Daily. Amount used: $10. Age of first use: 11. Date of Last Use: 03/08/17. Confirmed by patient. Medical History: Hepatitis C,GERD and cirrhosis of the liver. Psychiatric History: Patient denies. Physical/Sexual Abuse/Trauma History: Patient denies. Additional Comment: Urine Drug Screen Results: THC-Marijuana, INDIGO-Cocaine, OPI- Opiates, BZO-Benzodiazepines.Noted. Mental Status Exam - Mental Status Exam Alert and Oriented to: Time, Place, Person Cognitive Function: Good Patient Appearance: Well Groomed Mood: Hopeful, Euthymic Affect: Appropriate, Normal Range Patient Behavior: Fatigued, Appropriate, Cooperative Speech Pattern: Clear, Appropriate Voice Loudness: Normal Thought Process: Goal Oriented Thought Disorder: Not Present Hallucinations: Denies Suicidal Ideation: Denies Homicidal Ideation: Denies Insight/Judgement: Poor Sleep: Poorly, Difficulty falling asleep (requests 50 mg of seroquel at bedtime) Appetite: Good Muscle strength/Tone: Normal Gait/Station: Normal Psychiatric Findings - Problem List ([place] 1, 2,3) (1) Alcohol dependence with uncomplicated withdrawal Current Visit: Yes Status: Acute (2) Cannabis dependence, uncomplicated Current Visit: Yes Status: Acute (3) Cocaine dependence, uncomplicated Current Visit: Yes Status: Acute (4) Opioid dependence with withdrawal Current Visit: Yes Status: Acute (5) Sedative, hypnotic or anxiolytic dependence with withdrawal, uncomplicated Current Visit: Yes Status: Acute (6) Nicotine dependence Current Visit: Yes Status: Acute Qualifiers: Nicotine product type: cigarettes Substance use status: in withdrawal Qualified Code(s): F17.213 - Nicotine dependence, cigarettes, with withdrawal Comment: all dependencies acute and chronic use (7) Drug-induced mood disorder Current Visit: Yes Status: Acute (8) Substance induced mood disorder Current Visit: Yes Status: Acute (9) Gastroesophageal reflux disease Current Visit: Yes Status: Chronic (10) Hepatitis C carrier Current Visit: Yes Status: Chronic (11) Insomnia Current Visit: Yes Status: Acute - Initial Treatment Plan Initial Treatment Plan: Psychoeducation.Detoxification.Seroquel 50 mg po hs.Side effects/benefits discussed with the patient.He agrees with this careplan.Observation.
--- NOTE | 2017-03-10 12:58 | PN ---
S CIWA - CIWA Score Nausea/Vomitin Muscle Tremors: 4-Moderate,w/Arms Extend Anxiety: 2 Agitation: 1-Slight > Activity Paroxysmal Sweats: 3 Orientation: 0-Oriented Tacttile Disturbances: 0-None Auditory Disturbances: 0-None Visual Disturbances: 3-Moderate Sensitivity Headache: 0-None Present CIWA-Ar Total Score: 15 BHS COWS - Scale Resting Pulse: 0= [place] 80 or Below Sweatin= Chills/Flushing Restless Observation: 1= Difficult to Sit Still Pupil Size: 0= Normal to Room Light Bone or Joint Aches: 2= Severe Diffuse Aches Runny Nose/ Eye Tearin= Nasal Congestion GI Upset > 30mins: 2= Nausea/Diarrhea Tremor Observation of Outstretched Hands: 2= Slight Tremor Visible Yawning Observation: 0= None Anxiety or Irritability: 2=Irritable/Anxious Goose Flesh Skin: 3=Piloerection COWS Score: 14 BHS Progress Note (SOAP) Subjective: Interrupted Sleep, Sweating, Stomach Cramps, Diarrhea. Objective: PT. A & O X 3. 03/10/17 12:57 Vital Signs Temperature 98.2 F 03/10/17 11:58 Pulse Rate 73 03/10/17 11:58 Respiratory Rate 18 03/10/17 11:58 Blood Pressure 140/92 03/10/17 11:58 O2 Sat by Pulse Oximetry (%) Laboratory Last Values WBC 5.5 K/mm3 (4.0-10.0) D 03/10/17 06:00 RBC 5.30 M/mm3 (4.00-5.60) 03/10/17 06:00 Hgb 15.1 GM/dL (11.7-16.9) 03/10/17 06:00 Hct 46.4 % (35.4-49) 03/10/17 06:00 MCV 87.5 fl (80-96) 03/10/17 06:00 MCHC 32.6 g/dl (32.0-35.9) 03/10/17 06:00 RDW 14.2 % (11.9-15.9) 03/10/17 06:00 Plt Count 221 K/MM3 (134-434) D 03/10/17 06:00 MPV 10.0 fl (7.5-11.1) 03/10/17 06:00 Sodium 139 mmol/L (136-145) 03/10/17 06:00 Potassium 4.3 mmol/L (3.5-5.1) 03/10/17 06:00 Chloride 102 mmol/L (98-107) 03/10/17 06:00 Carbon Dioxide 31 mmol/L (21-32) 03/10/17 06:00 Anion Gap 6 (8-16) L 03/10/17 06:00 BUN 8 mg/dL (7-18) D 03/10/17 06:00 Creatinine 0.9 mg/dL (0.7-1.3) D 03/10/17 06:00 Creat Clearance w eGFR > 60 (>60) 03/10/17 06:00 Random Glucose 129 mg/dL (74-106) H D 03/10/17 06:00 Calcium 9.1 mg/dL (8.5-10.1) 03/10/17 06:00 Total Bilirubin 0.7 mg/dL (0.2-1.0) D 03/10/17 06:00 AST 47 U/L (15-37) H D 03/10/17 06:00 ALT 45 U/L (12-78) 03/10/17 06:00 Alkaline Phosphatase 90 U/L (45-117) 03/10/17 06:00 Total Protein 8.2 g/dl (6.4-8.2) 03/10/17 06:00 Albumin 3.8 g/dl (3.4-5.0) D 03/10/17 06:00 RPR Titer Nonreactive (NONREACTIVE) 03/10/17 06:00 HIV 1&2 Antibody Screen Negative 03/09/17 06:00 HIV P24 Antigen Negative 03/09/17 06:00 LABS NOTED. Assessment: 03/10/17 12:58 WITHDRAWAL SYMPTOMS. Plan: CONTINUE DETOX. PRN IMMODIUM FOR DIARRHEA. ADVISED PATIENT TO FOLLOW-UP WITH DIGITAL STRATEGIST SENIOR MANAGER / REHAB MEDICAL PROVIDER AFTER DISCHARGE FROM DETOX FOR GENERAL MEDICAL ASSESSMENT AND FOR ABNORMAL ADMISSION LAB VALUES.
[2017-03-10] MEDS ORDERED: QUEtiapine FUMARATE 50 MG TABLET PO SCH (22:00)
[2017-03-10] MEDS: THIAMINE HCL 100 MG TABLET (FP) PO SCH (22:16)
[2017-03-11] MEDS ORDERED: diazePAM 5 MG TABLET PO SCH (10:00)
[2017-03-11] MEDS ORDERED: METHADONE HCL 5 MG TABLET (FOR DETOX USE ONLY) PO SCH (10:00)
[2017-03-11] MEDS: PANTOPRAZOLE 40 MG TABLET (FP) PO SCH (10:23)
[2017-03-11] MEDS: PRENATAL VITAMINS W/ FOLIC ACID TABLET (FP) PO SCH (10:23)
[2017-03-11] MEDS: NICOTINE 21 MG/24 HOURS TOPICAL PATCH TD SCH (10:24)
[2017-03-11 10:50] VITALS: TEMP 97
[2017-03-11 10:52] VITALS: BP 151/84; PULSE 70
--- NOTE | 2017-03-11 14:39 | DS ---
[facility] Detox Discharge Summary Admission Date: 03/09/17 Discharge Date: 03/11/17 - History Present History: Alcohol Dependence, Cannabis Dependence, Cocaine Dependence, Opioid Dependence, Sedative Dependence Additional Comments: ADVISED PATIENT TO FOLLOW-UP WITH [facility] FOR GENERAL MEDICAL ASSESSMENT. Pertinent Past History: Insomnia, GERD, Hep C. - Physical Exam Results Vital Signs: Vital Signs Temperature 97.0 F L 03/11/17 10:49 Pulse Rate 70 03/11/17 10:49 Respiratory Rate 18 03/11/17 10:49 Blood Pressure 151/84 03/11/17 10:49 O2 Sat by Pulse Oximetry (%) Pertinent Admission Physical Exam Findings: WITHDRAWAL SYMPTOMS. Laboratory Last Values WBC 5.5 K/mm3 (4.0-10.0) D 03/10/17 06:00 RBC 5.30 M/mm3 (4.00-5.60) 03/10/17 06:00 Hgb 15.1 GM/dL (11.7-16.9) 03/10/17 06:00 Hct 46.4 % (35.4-49) 03/10/17 06:00 MCV 87.5 fl (80-96) 03/10/17 06:00 MCHC 32.6 g/dl (32.0-35.9) 03/10/17 06:00 RDW 14.2 % (11.9-15.9) 03/10/17 06:00 Plt Count 221 K/MM3 (134-434) D 03/10/17 06:00 MPV 10.0 fl (7.5-11.1) 03/10/17 06:00 Sodium 139 mmol/L (136-145) 03/10/17 06:00 Potassium 4.3 mmol/L (3.5-5.1) 03/10/17 06:00 Chloride 102 mmol/L (98-107) 03/10/17 06:00 Carbon Dioxide 31 mmol/L (21-32) 03/10/17 06:00 Anion Gap 6 (8-16) L 03/10/17 06:00 BUN 8 mg/dL (7-18) D 03/10/17 06:00 Creatinine 0.9 mg/dL (0.7-1.3) D 03/10/17 06:00 Creat Clearance w eGFR > 60 (>60) 03/10/17 06:00 Random Glucose 129 mg/dL (74-106) H D 03/10/17 06:00 Calcium 9.1 mg/dL (8.5-10.1) 03/10/17 06:00 Total Bilirubin 0.7 mg/dL (0.2-1.0) D 03/10/17 06:00 AST 47 U/L (15-37) H D 03/10/17 06:00 ALT 45 U/L (12-78) 03/10/17 06:00 Alkaline Phosphatase 90 U/L (45-117) 03/10/17 06:00 Total Protein 8.2 g/dl (6.4-8.2) 03/10/17 06:00 Albumin 3.8 g/dl (3.4-5.0) D 03/10/17 06:00 RPR Titer Nonreactive (NONREACTIVE) 03/10/17 06:00 HIV 1&2 Antibody Screen Negative 03/09/17 06:00 HIV P24 Antigen Negative 03/09/17 06:00 LABS NOTED. - Treatment Hospital Course: Detoxed Safely - Medication Discharge Medications: Ambulatory Orders Pantoprazole Sodium [Protonix -] 40 mg PO DAILY 01/28/17 Quetiapine Fumarate [Seroquel -] 50 mg PO HS #30 tablet 01/28/17 Quetiapine Fumarate [Seroquel -] 50 mg PO HS #30 tablet 03/10/17 - Diagnosis (1) Alcohol dependence with uncomplicated withdrawal Status: Acute (2) Cannabis dependence, uncomplicated Status: Acute (3) Cocaine dependence, uncomplicated Status: Acute (4) Drug-induced mood disorder Status: Acute (5) Insomnia Status: Chronic Qualifiers: Insomnia type: unspecified Qualified Code(s): G47.00 - Insomnia, unspecified (6) Nicotine dependence Status: Chronic Qualifiers: Nicotine product type: cigarettes Substance use status: in withdrawal Qualified Code(s): F17.213 - Nicotine dependence, cigarettes, with withdrawal (7) Opioid dependence with withdrawal Status: Acute (8) Sedative, hypnotic or anxiolytic dependence with withdrawal, uncomplicated Status: Acute (9) Gastroesophageal reflux disease Status: Chronic (10) Hepatitis C carrier Status: Chronic (11) Weight decreased Status: Acute - AMA Did Patient Leave Against Medical Advice: Yes (PATIENT DID NOT WANT TO STAY TO COMPLETE DETOX REGIMEN.)
[2017-03-11 15:37] LABS: URINE APPEARANCE CLEAR; URINE BILIRUBIN NEGATIVE (NEGATIVE); URINE BLOOD NEGATIVE (NEGATIVE); URINE COLOR LTYELLOW; URINE GLUCOSE (UA) NEGATIVE (NEGATIVE); URINE KETONE NEGATIVE (NEGATIVE); URINE LEUK ESTERASE NEGATIVE (NEGATIVE); URINE NITRITE NEGATIVE (NEGATIVE); URINE PROTEIN NEGATIVE (NEGATIVE); URINE UROBILINOGEN NEGATIVE E.U./dl (0.2-1.0)
[2017-03-13] MEDS ORDERED: METHADONE HCL 10 MG TABLET (FOR DETOX USE ONLY) PO SCH (10:00)
[2017-03-13] MEDS ORDERED: diazePAM 5 MG TABLET PO SCH (10:00)
[2017-03-14] MEDS ORDERED: METHADONE HCL 5 MG TABLET (FOR DETOX USE ONLY) PO SCH (06:00)
== END 2017-03-11 11:35 | disposition left against medical advice (07) | DRG 770 ==
LOC: YASAS 09:42 → Y6N 12:16
PROVIDERS: ADMIT Internal Medicine Addiction Medicine; ATTEND Internal Medicine Addiction Medicine
PROC: HZ2ZZZZ Detoxification Services for Substance Abuse Treatment (ICD-10-PCS; principal; 2017-03-11)
DX: F11.23 Opioid dependence with withdrawal (principal); F13.230 Sedative, hypnotic or anxiolytic dependence with withdrawal, uncomplicated; F10.230 Alcohol dependence with withdrawal, uncomplicated; F14.20 Cocaine dependence, uncomplicated; F12.20 Cannabis dependence, uncomplicated; F17.210 Nicotine dependence, cigarettes, uncomplicated; F19.24 Other psychoactive substance dependence with psychoactive substance-induced mood disorder; G47.00 Insomnia, unspecified; K21.9 Gastro-esophageal reflux disease without esophagitis; B18.2 Chronic viral hepatitis C; R63.4 Abnormal weight loss; Z68.22 Body mass index [BMI] 22.0-22.9, adult; Z59.0 Homelessness
CPT/HCPCS: 36415; 80053; 81003; 85027; 86593; 87389; 93005; 93010

== ENCOUNTER 2017-05-01 13:44 | Inpatient (IN) | payer OTHER ==
[2017-05-01 17:18] VITALS: BMI 21.9
--- NOTE | 2017-05-01 19:44 | HP ---
COWS - Scale Resting Pulse: 0= [place] 80 or Below Sweatin=Flushed/Facial Moisture Restless Observation: 3= Extraneous Movement Pupil Size: 2= Moderately Dilated Bone or Joint Aches: 2= Severe Diffuse Aches Runny Nose/ Eye Tearin= Runny Nose/Eyes GI Upset > 30mins: 3= Vomiting/Diarrhea Tremor Observation: 2= Slight Tremor Visible Yawning Observation: 2= >3x During Session Anxiety or Irritability: 2=Irritable/Anxious Goose Flesh Skin: 0=Smooth Skin COWS Score: 20 CIWA Score - CIWA Score Nausea/Vomitin Muscle Tremors: 3 Anxiety: 3 Agitation: 3 Paroxysmal Sweats: 2 Orientation: 0-Oriented Tacttile Disturbances: 2-Mild Itch/Numbness/Burn Auditory Disturbances: 2-Mild Harshness/Frighten Visual Disturbances: 2-Mild Sensitivity Headache: 2-Mild CIWA-Ar Total Score: 22 Admission ROS BHS - HPI Chief Complaint: i need help to stop using heroin,cocaine,alcohol,marijuana, Allergies/Adverse Reactions: Allergies Allergy/AdvReac Type Severity Reaction Status Date / Time shellfish derived Allergy Severe Swelling Verified 05/01/17 18:00 Penicillins Allergy Mild Hives Verified 05/01/17 18:00 SHELLFISH Allergy Severe Swelling Uncoded 05/01/17 18:00 History of Present Illness: this 37 years old male with heroin,alcohol,cocaine,marijuana,xanax dependence, seeking detox,last detox [facility] 03/11/17 to 03/11/17 not completed cirrhosis hepatitis c weight loss several times admissions keep releasing longest period of sobriety 6 months Exam Limitations: No Limitations - Ebola screening Have you traveled outside of the country in the last 21 days: Yes Have you been sick,other than usual withdrawal symptoms: No - Review of Systems Constitutional: Chills, Diaphoresis, Loss of Appetite, Malaise, Night Sweats, Changes in sleep, Weakness, Unexplained wgt Loss EENT: reports: Tearing, Nose Congestion Respiratory: reports: No Symptoms reported Cardiac: reports: Palpitations GI: reports: Diarrhea, Nausea, Vomiting, Abdominal cramping : reports: No Symptoms Reported Musculoskeletal: reports: Back Pain, Joint Pain, Muscle Pain, Joint Stiffness Integumentary: reports: Dryness Neuro: reports: Headache, Tremors Endocrine: reports: No Symptoms Reported Hematology: reports: No Symptoms Reported Psychiatric: reports: No Sypmtoms Reported, Judgement Intact, Mood/Affect Appropiate, Orientated x3 (onsomnia) Patient History - Patient Medical History Hx Anemia: No Hx Asthma: No Hx Chronic Obstructive Pulmonary Disease (COPD): No Hx Cancer: No Hx Cardiac Disorders: No Hx Congestive Heart Failure: No Hx Hypertension: No Hx Hypercholesterolemia: No Hx Pacemaker: No HX Cerebrovascular Accident: No Hx Seizures: No Hx Dementia: No Hx Diabetes: No Hx Gastrointestinal Disorders: Yes (acid reflux) Hx Liver Disease: Yes (Hep C ab positive) Hx Genitourinary Disorders: No Hx Sexually Transmitted Disorders: No Hx Renal Disease (ESRD): No Hx Thyroid Disease: No Hx Human Immunodeficiency Virus (HIV): No Hx Hepatitis C: Yes (not treated) Hx Depression: Yes (anxiety,insomnia) Hx Suicide Attempt: No Hx Bipolar Disorder: No Hx Schizophrenia: No Other Medical History: no suicidal,no homicidal - Patient Surgical History Past Surgical History: No Hx Neurologic Surgery: No Hx Cataract Extraction: No Hx Cardiac Surgery: No Hx Lung Surgery: No Hx Breast Surgery: No Hx Breast Biopsy: No Hx Abdominal Surgery: No Hx Appendectomy: No Hx Cholecystectomy: No Hx Genitourinary Surgery: No Hx Section: No Hx Orthopedic Surgery: No Anesthesia Reaction: No - PPD History Previous Implant?: Yes Date: 01/30/17 Results: 0 mm PPD to be Administered?: No - Smoking Cessation Smoking history: Current every day smoker Have you smoked in the past 12 months: No Aproximately how many cigarettes per day: 20 Cigars Per Day: 0 Hx Chewing Tobacco Use: No Initiated information on smoking cessation: Yes 'Breaking Loose' booklet given: 05/01/17 - Substance & Tx. History Hx Alcohol Use: Yes Hx Substance Use: Yes Substance Use Type: Alcohol, Cocaine, Heroin, Marijuana Hx Substance Use Treatment: Yes ([facility] 03/09/17 to 03/11/17 not completed) - Substances Abused Heroin Route: Injection Frequency: Daily Amount used: 15 bags Age of first use: 15 Date of Last Use: 04/30/17 Cocaine Route: Injection Frequency: Daily Amount used: 12 bags Age of first use: 15 Date of Last Use: 04/30/17 Alcohol Route: Oral Frequency: 1-3 times last 30 days Amount used: 1pint of vodaka/6 packs of 24 ozs of beer Age of first use: 11 Date of Last Use: 04/30/17 Marijuana/Hashish Route: Smoking Frequency: Daily Amount used: 10$ Age of first use: 11 Date of Last Use: 04/30/17 Alprazolam (Xanax) Route: Oral Frequency: 1-2 times per week Amount used: 4 mgs Age of first use: 31 Date of Last Use: 04/28/17 Family Disease History - Family Disease History Family Disease History: Diabetes: Father (, HIV), Brother, Sister, Other : Father, Mother (, hiv) Admission Physical Exam S - Vital Signs Vital Signs: Vital Signs - 24 hr 05/01/17 17:16 Temperature 95.8 F L Pulse Rate 75 Respiratory 20 Rate Blood Pressure 123/81 - Physical General Appearance: Yes: Moderate Distress, Tremorous, Irritable, Sweating, Anxious HEENTM: Yes: Hearing grossly Normal, Normal ENT Inspection, Normocephalic, SUSY , Pharynx Normal Respiratory: Yes: Lungs Clear, Normal Breath Sounds, No Respiratory Distress Neck: Yes: Within Normal Limits, Supple, Trachea in good position Breast: Yes: Within Normal Limits Cardiology: Yes: Within Normal Limits, Regular Rhythm, Regular Rate Abdominal: Yes: Within Normal Limits, Normal Bowel Sounds, Non Tender, Flat, Soft Genitourinary: Yes: Within Normal Limits Back: Yes: Within Normal Limits, Normal Inspection, Muscle Spasm Musculoskeletal: Yes: full range of Motion, Back pain, Joint Stiffness, Muscle Pain Extremities: Yes: Within Normal Limits, Normal Range of Motion, Tremors Neurological: Yes: hematology technician II-XII NML intact, Fully Oriented, Alert, Motor Strength 5/5 Integumentary: Yes: Dry Lymphatic: Yes: Within Normal Limits - Diagnostic (1) Alcohol dependence with uncomplicated withdrawal Current Visit: No Status: Acute (2) Cannabis dependence, uncomplicated Current Visit: No Status: Acute (3) Cocaine dependence, uncomplicated Current Visit: No Status: Acute (4) Opioid dependence with withdrawal Current Visit: No Status: Acute (5) Sedative, hypnotic or anxiolytic dependence with withdrawal, uncomplicated Current Visit: No Status: Acute (6) Weight decreased Current Visit: No Status: Acute (7) Gastroesophageal reflux disease Current Visit: No Status: Chronic (8) Hepatitis C carrier Current Visit: No Status: Chronic (9) Insomnia Current Visit: No Status: Chronic Qualifiers: Insomnia type: unspecified Qualified Code(s): G47.00 - Insomnia, unspecified (10) Nicotine dependence Current Visit: No Status: Chronic Qualifiers: Nicotine product type: cigarettes Substance use status: in withdrawal Qualified Code(s): F17.213 - Nicotine dependence, cigarettes, with withdrawal Comment: all dependencies acute and chronic use Cleared for Admission S - Detox or Rehab [facility] Level of Care: Medically Managed Detox Regimen/Protocol: Methadone/Valium S Breath Alcohol Content Breath Alcohol Content: 0 Urine Drug Screen - Results Drug Screen Negative: No Urine Drug Screen Results: THC-Marijuana, INDIGO-Cocaine, OPI-Opiates, OXY- Oxycodone
[2017-05-01] MEDS ORDERED: P-EPHED 60MG/TRIPROLIDI 2.5MG TABLET PO PRN (20:01)
[2017-05-01] MEDS ORDERED: diazePAM 5 MG TABLET PO ONE (20:01)
[2017-05-01] MEDS ORDERED: MAGNESIUM HYDROX 2400MG/30ML ORAL SUSPENSION 30 ML CUP PO PRN (20:01)
[2017-05-01] MEDS ORDERED: NICOTINE POLACRILEX 2 MG GUM BC PRN (20:01)
[2017-05-01] MEDS ORDERED: hydrOXYzine PAMOATE 50 MG CAPSULE (FP) PO PRN (20:01)
[2017-05-01] MEDS ORDERED: diphenhydrAMINE HCL 50 MG CAPSULE PO PRN (20:01)
[2017-05-01] MEDS ORDERED: MAG HYDROX/AL HYDROX/SIMETH 30 ML UNIT-DOSE CUP PO PRN (20:01)
[2017-05-01] MEDS ORDERED: MAGNESIUM CITRATE 300 ML BOTTLE PO PRN (20:01)
[2017-05-01] MEDS ORDERED: METHADONE HCL 10 MG TABLET (FOR DETOX USE ONLY) PO ONE ×2 (20:01→23:00)
[2017-05-01] MEDS ORDERED: guaiFENesin/D-METHORPHAN HB 10 ML UNIT-DOSE CUPS PO PRN (20:01)
[2017-05-01] MEDS ORDERED: LOPERAMIDE HCL 2 MG CAPSULE PO PRN (20:01)
[2017-05-01] MEDS ORDERED: ACETAMINOPHEN 325 MG TABLET (FP) PO PRN (20:01)
[2017-05-01] MEDS ORDERED: IBUPROFEN 400 MG TABLET (FP) PO PRN (20:01)
[2017-05-01] MEDS ORDERED: MENTHOL/PHENOL 1 EACH UD MM PRN (20:01)
[2017-05-01 21:12] LABS: URINE APPEARANCE CLEAR; URINE BILIRUBIN NEGATIVE (NEGATIVE); URINE COLOR YELLOW; URINE GLUCOSE (UA) NEGATIVE (NEGATIVE); URINE KETONE NEGATIVE (NEGATIVE); URINE LEUK ESTERASE NEGATIVE (NEGATIVE); URINE NITRITE NEGATIVE (NEGATIVE); URINE UROBILINOGEN 2.0 E.U/dl E.U./dl (0.2-1.0)
[2017-05-01 21:15] LABS: URINE BLOOD 2+ (NEGATIVE); URINE PROTEIN 1+ (NEGATIVE)
[2017-05-01 21:18] LABS: URINE MUCUS FEW; URINE RBC 96 /hpf (0-3); URINE WBC 1 /hpf (3-5)
[2017-05-01] MEDS: diazePAM 5 MG TABLET PO SCH (21:26)
[2017-05-01] MEDS: THIAMINE HCL 100 MG TABLET (FP) PO SCH (21:27)
[2017-05-01] MEDS: NICOTINE 21 MG/24 HOURS TOPICAL PATCH TD SCH (21:29)
[2017-05-02] MEDS: diazePAM 5 MG TABLET PO SCH ×3 (06:01→22:05)
[2017-05-02] MEDS: diazePAM 5 MG TABLET PO PRN ×2 (08:43→15:43)
[2017-05-02] MEDS ORDERED: METHADONE HCL 10 MG TABLET (FOR DETOX USE ONLY) PO SCH (10:00)
[2017-05-02] MEDS: PANTOPRAZOLE 40 MG TABLET (FP) PO SCH (10:03)
[2017-05-02] MEDS: PRENATAL VITAMINS W/ FOLIC ACID TABLET (FP) PO SCH (10:03)
[2017-05-02 10:05] LABS: MCH 28.8 pg (25.7-33.7); MCHC 33.5 g/dl (32.0-35.9); MEAN CELL VOLUME 86.1 fl (80-96); MEAN PLT VOLUME 10.3 fl (7.5-11.1); PLATELET COUNT 203 K/MM3 (134-434); RDW 13.8 % (11.9-15.9); WHITE BLOOD COUNT 6.6 K/mm3 (4.0-10.0)
[2017-05-02] MEDS: NICOTINE 21 MG/24 HOURS TOPICAL PATCH TD SCH (10:05)
[2017-05-02 10:51] LABS: ALBUMIN 4.2 g/dl (3.4-5.0); ALK PHOS 99 U/L (45-117); ANION GAP 12 (8-16); BILIRUBIN,TOTAL 0.5 mg/dL (0.2-1.0); CALCIUM 9.8 mg/dL (8.5-10.1); CO2 24 mmol/L (21-32); COCKROFT - GAULT 98.97; CREATININE 0.9 mg/dL (0.7-1.3); GLUCOSE,RANDOM 140 mg/dL (74-106); SGOT/AST 42 U/L (15-37); SGPT/ALT 43 U/L (12-78); TOT PROT 8.4 g/dl (6.4-8.2)
--- NOTE | 2017-05-02 10:59 | EKG ---
Test Reason : Blood Pressure : / mmHG Vent. Rate : 062 BPM Atrial Rate : 062 BPM P-R Int : 120 ms QRS Dur : 088 ms QT Int : 416 ms P-R-T Axes : 072 017 034 degrees QTc Int : 422 ms NORMAL SINUS RHYTHM MODERATE VOLTAGE CRITERIA FOR LVH, MAY BE NORMAL VARIANT BORDERLINE ECG WHEN COMPARED WITH ECG OF 09-MAR-2017 13:01, T WAVE VARIATION Confirmed by JIMMY MIMS MD ([id number]) on 05/02/2017 10:58:39 AM Referred By: Confirmed By:JIMMY MIMS MD
--- NOTE | 2017-05-02 12:31 | CONSULT ---
[facility] Psychiatric Consult - Data Date of interview: 05/02/17 Admission source: [facility] Identifying data: Readmission to [facility] for this 37 y/o male seeking detox treatment,on ,for alcohol,heroin,cocaine,benzodiazepine ( xanax) and marijuana dependence.Patient is single,a father of two,homeless and supported on food stamps. Substance Abuse History: - Smoking Cessation. Smoking history: Current every day smoker. Have you smoked in the past 12 months: No. Aproximately how many cigarettes per day: 20. Cigars Per Day: 0. Hx Chewing Tobacco Use: No. Initiated information on smoking cessation: Yes. 'Breaking Loose' booklet given : 05/01/17. - Substance & Tx. History. Hx Alcohol Use: Yes. Hx Substance Use : Yes. Substance Use Type: Alcohol, Cocaine, Heroin, Marijuana. Hx Substance Use Treatment: Yes ([facility] 03/09/17 to 03/11/17 not completed). - Substances Abused. Heroin. Route: Injection. Frequency: Daily. Amount used: 15 bags. Age of first use: 15. Date of Last Use: 04/30/17. Cocaine. Route: Injection. Frequency: Daily. Amount used: 12 bags. Age of first use: 15. Date of Last Use: 04/30/17. Alcohol. Route: Oral. Frequency: 1-3 times last 30 days. Amount used: 1pint of vodaka/6 packs of 24 ozs of beer. Age of first use: 11. Date of Last Use: 04/30/17. Marijuana/Hashish. Route: Smoking. Frequency: Daily. Amount used: 10$. Age of first use: 11. Date of Last Use: 04/30/17. Alprazolam (Xanax). Route: Oral. Frequency: 1-2 times per week. Amount used: 4 mgs. Age of first use: 31. Date of Last Use: . Confirmed by patient. Medical History: Hepatitis C,GERD and cirrhosis of the liver. Psychiatric History: Patient denies. Physical/Sexual Abuse/Trauma History: Patient denies. Additional Comment: Urine Drug Screen Results: THC-Marijuana, INDIGO-Cocaine, OPI- Opiates, OXY-Oxycodone.Noted. Mental Status Exam - Mental Status Exam Alert and Oriented to: Time, Place, Person Cognitive Function: Good Patient Appearance: Well Groomed Mood: Nervous, Withdrawn Affect: Mood Congruent Patient Behavior: Fatigued, Cooperative (superficially) Speech Pattern: Clear Voice Loudness: Normal Thought Process: Goal Oriented Thought Disorder: Not Present Hallucinations: Denies Suicidal Ideation: Denies Homicidal Ideation: Denies Insight/Judgement: Poor Sleep: Poorly, Difficulty falling asleep Appetite: Good Muscle strength/Tone: Normal Gait/Station: Normal Psychiatric Findings - Problem List (Mellen 1, 2,3) (1) Alcohol dependence with uncomplicated withdrawal Current Visit: Yes Status: Acute (2) Cannabis dependence, uncomplicated Current Visit: Yes Status: Acute (3) Cocaine dependence, uncomplicated Current Visit: Yes Status: Acute (4) Opioid dependence with withdrawal Current Visit: Yes Status: Acute (5) Sedative, hypnotic or anxiolytic dependence with withdrawal, uncomplicated Current Visit: Yes Status: Acute (6) Nicotine dependence Current Visit: No Status: Chronic Qualifiers: Nicotine product type: cigarettes Substance use status: in withdrawal Qualified Code(s): F17.213 - Nicotine dependence, cigarettes, with withdrawal Comment: all dependencies acute and chronic use (7) Substance induced mood disorder Current Visit: Yes Status: Acute (8) Gastroesophageal reflux disease Current Visit: Yes Status: Chronic (9) Hepatitis C carrier Current Visit: Yes Status: Chronic (10) Insomnia Current Visit: Yes Status: Acute Qualifiers: Insomnia type: unspecified Qualified Code(s): G47.00 - Insomnia, unspecified - Initial Treatment Plan Initial Treatment Plan: Psychoeducation.Detoxification.Patient is requesting seroquel to address chronic insomnia.Seroquel 100 mg po hs.Side effects/ benefits discussed with the patient.He is in agreement with this careplan.Observation.
--- NOTE | 2017-05-02 12:54 | PN ---
[facility] CIWA - CIWA Score Nausea/Vomitin-No Nausea/No Vomiting Muscle Tremors: 4-Moderate,w/Arms Extend Anxiety: 4-Mod. Anxious/Guarded Agitation: 3 Paroxysmal Sweats: 3 Orientation: 0-Oriented Tacttile Disturbances: 0-None Auditory Disturbances: 0-None Visual Disturbances: 0-None Headache: 0-None Present CIWA-Ar Total Score: 14 S COWS - Scale Resting Pulse: 1= [place] 81-100 Sweatin=Flushed/Facial Moisture Restless Observation: 1= Difficult to Sit Still Pupil Size: 0= Normal to Room Light Bone or Joint Aches: 1= Mild Discomfort Runny Nose/ Eye Tearin= Runny Nose/Eyes GI Upset > 30mins: 2= Nausea/Diarrhea Tremor Observation of Outstretched Hands: 2= Slight Tremor Visible Yawning Observation: 1= 1-2x During Session Anxiety or Irritability: 2=Irritable/Anxious Goose Flesh Skin: 0=Smooth Skin COWS Score: 14 [facility] Progress Note (SOAP) Subjective: Anxiety,tremors,sweating,interrupted sleep,restless,muscle aches/spasm Objective: 05/02/17 12:53 Last Vital Signs Temp Pulse Resp BP Pulse Ox 97.7 F 85 18 123/84 05/02/17 09:10 05/02/17 09:10 05/02/17 09:10 05/02/17 09:10 Laboratory Tests 05/01/17 05/02/17 05/02/17 20:45 06:00 06:00 WBC 6.6 RBC 5.14 Hgb 14.8 Hct 44.3 MCV 86.1 MCHC 33.5 RDW 13.8 Plt Count 203 MPV 10.3 Sodium 140 Potassium 4.5 Chloride 104 Carbon Dioxide 24 D Anion Gap 12 BUN 18 D Creatinine 0.9 Creat Clearance w eGFR > 60 Random Glucose 140 H Calcium 9.8 Total Bilirubin 0.5 D AST 42 H ALT 43 Alkaline Phosphatase 99 Total Protein 8.4 H Albumin 4.2 Urine Color Yellow Urine Appearance Clear Urine pH 5.0 D Ur Specific [place] 1.025 Urine Protein 1+ H Urine Glucose (UA) Negative Urine Ketones Negative Urine Blood 2+ H Urine Nitrite Negative Urine Bilirubin Negative Urine Urobilinogen 2.0 e.u/dl Ur Leukocyte Esterase Negative Urine RBC 96 Urine WBC 1 Ur Epithelial Cells Rare Urine Mucus Few RPR Titer 05/02/17 06:00 WBC RBC Hgb Hct MCV MCHC RDW Plt Count MPV Sodium Potassium Chloride Carbon Dioxide Anion Gap BUN Creatinine Creat Clearance w eGFR Random Glucose Calcium Total Bilirubin AST ALT Alkaline Phosphatase Total Protein Albumin Urine Color Urine Appearance Urine pH Ur Specific [place] Urine Protein Urine Glucose (UA) Urine Ketones Urine Blood Urine Nitrite Urine Bilirubin Urine Urobilinogen Ur Leukocyte Esterase Urine RBC Urine WBC Ur Epithelial Cells Urine Mucus RPR Titer Nonreactive labs noted Assessment: 05/02/17 12:54 Withdrawal sx. Plan: Continue detox
[2017-05-02] MEDS ORDERED: ONDANSETRON *ODT* 4 MG TABLET SL PRN (13:06)
[2017-05-02] MEDS: THIAMINE HCL 100 MG TABLET (FP) PO SCH (22:05)
[2017-05-02] MEDS: QUEtiapine FUMARATE 100 MG TABLET (FP) PO SCH (22:05)
[2017-05-03] MEDS: NICOTINE 21 MG/24 HOURS TOPICAL PATCH TD SCH (10:03)
[2017-05-03] MEDS: diazePAM 5 MG TABLET PO SCH ×2 (10:03→22:01)
[2017-05-03] MEDS: METHADONE HCL 5 MG TABLET (FOR DETOX USE ONLY) PO SCH (10:03)
[2017-05-03] MEDS: PRENATAL VITAMINS W/ FOLIC ACID TABLET (FP) PO SCH (10:03)
[2017-05-03] MEDS: PANTOPRAZOLE 40 MG TABLET (FP) PO SCH (10:03)
--- NOTE | 2017-05-03 11:02 | PN ---
S CIWA - CIWA Score Nausea/Vomitin Muscle Tremors: 3 Anxiety: 4-Mod. Anxious/Guarded Agitation: 3 Paroxysmal Sweats: 3 Orientation: 0-Oriented Tacttile Disturbances: 3-Moderate Itch/Numb/Burn Auditory Disturbances: 2-Mild Harshness/Frighten Visual Disturbances: 0-None Headache: 0-None Present CIWA-Ar Total Score: 20 [facility] COWS - Scale Resting Pulse: 1= [place] 81-100 Sweatin= Chills/Flushing Restless Observation: 1= Difficult to Sit Still Pupil Size: 0= Normal to Room Light Bone or Joint Aches: 2= Severe Diffuse Aches Runny Nose/ Eye Tearin= Nasal Congestion GI Upset > 30mins: 1= Stomach Cramp Tremor Observation of Outstretched Hands: 2= Slight Tremor Visible Yawning Observation: 1= 1-2x During Session Anxiety or Irritability: 2=Irritable/Anxious Goose Flesh Skin: 0=Smooth Skin COWS Score: 12 S Progress Note (SOAP) Subjective: Tremors, Interrupted sleep, Anxious, Stomach Cramping, Sweating. Objective: PT. A & O X 3, OBSERVED AMBULATING ON UNIT. NO ACUTE DISTRESS. 05/03/17 11:01 Vital Signs Temperature 97.4 F L 05/03/17 09:15 Pulse Rate 88 05/03/17 09:15 Respiratory Rate 18 05/03/17 09:15 Blood Pressure 124/83 05/03/17 09:15 O2 Sat by Pulse Oximetry (%) Laboratory Tests 05/01/17 05/02/17 05/02/17 20:45 06:00 06:00 WBC 6.6 RBC 5.14 Hgb 14.8 Hct 44.3 MCV 86.1 MCHC 33.5 RDW 13.8 Plt Count 203 MPV 10.3 Sodium 140 Potassium 4.5 Chloride 104 Carbon Dioxide 24 D Anion Gap 12 BUN 18 D Creatinine 0.9 Creat Clearance w eGFR > 60 Random Glucose 140 H Calcium 9.8 Total Bilirubin 0.5 D AST 42 H ALT 43 Alkaline Phosphatase 99 Total Protein 8.4 H Albumin 4.2 Urine Color Yellow Urine Appearance Clear Urine pH 5.0 D Ur Specific [place] 1.025 Urine Protein 1+ H Urine Glucose (UA) Negative Urine Ketones Negative Urine Blood 2+ H Urine Nitrite Negative Urine Bilirubin Negative Urine Urobilinogen 2.0 e.u/dl Ur Leukocyte Esterase Negative Urine RBC 96 Urine WBC 1 Ur Epithelial Cells Rare Urine Mucus Few RPR Titer 05/02/17 06:00 WBC RBC Hgb Hct MCV MCHC RDW Plt Count MPV Sodium Potassium Chloride Carbon Dioxide Anion Gap BUN Creatinine Creat Clearance w eGFR Random Glucose Calcium Total Bilirubin AST ALT Alkaline Phosphatase Total Protein Albumin Urine Color Urine Appearance Urine pH Ur Specific [place] Urine Protein Urine Glucose (UA) Urine Ketones Urine Blood Urine Nitrite Urine Bilirubin Urine Urobilinogen Ur Leukocyte Esterase Urine RBC Urine WBC Ur Epithelial Cells Urine Mucus RPR Titer Nonreactive LABS NOTED. Assessment: 05/03/17 11:01 WITHDRAWAL SYMPTOMS. Plan: CONTINUE DETOX. REPEAT UA FOR ABNORMAL ADMISSION UA LEVELS (RBC, BLOOD).
[2017-05-03] MEDS: diazePAM 5 MG TABLET PO PRN (17:07)
[2017-05-03 17:47] LABS: URINE APPEARANCE CLEAR; URINE BILIRUBIN NEGATIVE (NEGATIVE); URINE BLOOD NEGATIVE (NEGATIVE); URINE COLOR LTYELLOW; URINE GLUCOSE (UA) NEGATIVE (NEGATIVE); URINE KETONE NEGATIVE (NEGATIVE); URINE LEUK ESTERASE NEGATIVE (NEGATIVE); URINE NITRITE NEGATIVE (NEGATIVE); URINE PROTEIN NEGATIVE (NEGATIVE); URINE UROBILINOGEN NEGATIVE E.U./dl (0.2-1.0)
[2017-05-03] MEDS: QUEtiapine FUMARATE 100 MG TABLET (FP) PO SCH (22:01)
[2017-05-03] MEDS: THIAMINE HCL 100 MG TABLET (FP) PO SCH (22:01)
[2017-05-04] MEDS: diazePAM 5 MG TABLET PO PRN ×2 (06:03→13:52)
[2017-05-04] MEDS: NICOTINE 21 MG/24 HOURS TOPICAL PATCH TD SCH (10:03)
[2017-05-04] MEDS: METHADONE HCL 5 MG TABLET (FOR DETOX USE ONLY) PO SCH (10:03)
[2017-05-04] MEDS: diazePAM 5 MG TABLET PO SCH (10:03)
[2017-05-04] MEDS: PRENATAL VITAMINS W/ FOLIC ACID TABLET (FP) PO SCH (10:03)
[2017-05-04] MEDS: PANTOPRAZOLE 40 MG TABLET (FP) PO SCH (10:05)
--- NOTE | 2017-05-04 13:01 | PN ---
[facility] Progress Note (SOAP) Subjective: Anxious, Fatigue, Sweating. Objective: PT. A & O X 3. NO ACUTE DISTRESS. 05/04/17 12:59 Vital Signs Temperature 97.0 F L 05/04/17 12:55 Pulse Rate 75 05/04/17 12:55 Respiratory Rate 18 05/04/17 12:55 Blood Pressure 130/88 05/04/17 12:55 O2 Sat by Pulse Oximetry (%) Laboratory Tests 05/01/17 05/02/17 05/02/17 20:45 06:00 06:00 WBC 6.6 RBC 5.14 Hgb 14.8 Hct 44.3 MCV 86.1 MCHC 33.5 RDW 13.8 Plt Count 203 MPV 10.3 Sodium 140 Potassium 4.5 Chloride 104 Carbon Dioxide 24 D Anion Gap 12 BUN 18 D Creatinine 0.9 Creat Clearance w eGFR > 60 Random Glucose 140 H Calcium 9.8 Total Bilirubin 0.5 D AST 42 H ALT 43 Alkaline Phosphatase 99 Total Protein 8.4 H Albumin 4.2 Urine Color Yellow Urine Appearance Clear Urine pH 5.0 D Ur Specific [place] 1.025 Urine Protein 1+ H Urine Glucose (UA) Negative Urine Ketones Negative Urine Blood 2+ H Urine Nitrite Negative Urine Bilirubin Negative Urine Urobilinogen 2.0 e.u/dl Ur Leukocyte Esterase Negative Urine RBC 96 Urine WBC 1 Ur Epithelial Cells Rare Urine Mucus Few RPR Titer 05/02/17 05/03/17 06:00 17:32 WBC RBC Hgb Hct MCV MCHC RDW Plt Count MPV Sodium Potassium Chloride Carbon Dioxide Anion Gap BUN Creatinine Creat Clearance w eGFR Random Glucose Calcium Total Bilirubin AST ALT Alkaline Phosphatase Total Protein Albumin Urine Color Ltyellow Urine Appearance Clear Urine pH 6.0 Ur Specific [place] 1.015 Urine Protein Negative Urine Glucose (UA) Negative Urine Ketones Negative Urine Blood Negative Urine Nitrite Negative Urine Bilirubin Negative Urine Urobilinogen Negative Ur Leukocyte Esterase Negative Urine RBC Urine WBC Ur Epithelial Cells Urine Mucus RPR Titer Nonreactive LABS NOTED. Assessment: 05/04/17 13:00 WITHDRAWAL SYMPTOMS. Plan: CONTINUE DETOX.
[2017-05-04 17:17] VITALS: BP 134/87; PULSE 76; TEMP 97.4
--- NOTE | 2017-05-04 17:28 | PN ---
S Progress Note Note: patient did not want to complete treatment.seen by counselor,did not want to wait,signed release ama
--- NOTE | 2017-05-04 17:33 | DS ---
[facility] Detox Discharge Summary Admission Date: 05/01/17 Discharge Date: 05/04/17 - History Present History: Alcohol Dependence, Cannabis Dependence, Cocaine Dependence, Sedative Dependence Additional Comments: patient did not want to complete treatment,signed release ama,did not want to wait Pertinent Past History: hepatitis c - Physical Exam Results Vital Signs: Vital Signs Temperature 97.4 F L 05/04/17 17:16 Pulse Rate 76 05/04/17 17:16 Respiratory Rate 18 05/04/17 17:16 Blood Pressure 134/87 05/04/17 17:16 O2 Sat by Pulse Oximetry (%) Pertinent Admission Physical Exam Findings: withdrawal symptom - Medication Discharge Medications: Ambulatory Orders Pantoprazole Sodium [Protonix -] 40 mg PO DAILY 01/28/17 Quetiapine Fumarate [Seroquel -] 50 mg PO HS #30 tablet 01/28/17 Quetiapine Fumarate [Seroquel] 100 mg PO HS #30 tablet 05/02/17 - Diagnosis (1) Alcohol dependence with uncomplicated withdrawal Current Visit: Yes Status: Acute (2) Cannabis dependence, uncomplicated Current Visit: Yes Status: Acute (3) Cocaine dependence, uncomplicated Current Visit: Yes Status: Acute (4) Opioid dependence with withdrawal Current Visit: Yes Status: Acute (5) Sedative, hypnotic or anxiolytic dependence with withdrawal, uncomplicated Current Visit: Yes Status: Acute (6) Weight decreased Current Visit: No Status: Acute (7) Gastroesophageal reflux disease Current Visit: Yes Status: Chronic (8) Hepatitis C carrier Current Visit: Yes Status: Chronic (9) Insomnia Current Visit: Yes Status: Acute Qualifiers: Insomnia type: unspecified Qualified Code(s): G47.00 - Insomnia, unspecified (10) Nicotine dependence Current Visit: No Status: Chronic Qualifiers: Nicotine product type: cigarettes Substance use status: in withdrawal Qualified Code(s): F17.213 - Nicotine dependence, cigarettes, with withdrawal - AMA Did Patient Leave Against Medical Advice: Yes
[2017-05-05] MEDS ORDERED: METHADONE HCL 10 MG TABLET (FOR DETOX USE ONLY) PO SCH (10:00)
[2017-05-05] MEDS ORDERED: diazePAM 5 MG TABLET PO SCH (10:00)
[2017-05-06] MEDS ORDERED: METHADONE HCL 5 MG TABLET (FOR DETOX USE ONLY) PO SCH (06:00)
== END 2017-05-04 17:14 | disposition left against medical advice (07) | DRG 770 ==
LOC: YASAS 13:44 → Y3N 18:46
PROVIDERS: ADMIT Internal Medicine; ATTEND Internal Medicine
PROC: HZ2ZZZZ Detoxification Services for Substance Abuse Treatment (ICD-10-PCS; principal; 2017-05-01)
DX: F11.23 Opioid dependence with withdrawal (principal); F13.230 Sedative, hypnotic or anxiolytic dependence with withdrawal, uncomplicated; F14.20 Cocaine dependence, uncomplicated; F12.20 Cannabis dependence, uncomplicated; F17.213 Nicotine dependence, cigarettes, with withdrawal; F19.24 Other psychoactive substance dependence with psychoactive substance-induced mood disorder; K21.9 Gastro-esophageal reflux disease without esophagitis; B18.2 Chronic viral hepatitis C; G47.00 Insomnia, unspecified; K74.60 Unspecified cirrhosis of liver; Z87.898 Personal history of other specified conditions
CPT/HCPCS: 36415; 80053; 81003; 81015; 85027; 86593; 93005; 93010

== ENCOUNTER 2017-08-22 00:52 | Inpatient (IN) | payer OTHER ==
--- NOTE | 2017-08-22 01:32 | HP ---
COWS - Scale Resting Pulse: 1= [place] 81-100 Sweatin=Flushed/Facial Moisture Restless Observation: 5= Unable to Sit Still Pupil Size: 1= Pupils >than Normal Bone or Joint Aches: 4=Acute Joint/Muscle Pain Runny Nose/ Eye Tearin= Runny Nose/Eyes GI Upset > 30mins: 2= Nausea/Diarrhea Tremor Observation: 4= Gross Tremor/Twitching Yawning Observation: 0= None Anxiety or Irritability: 4=Extreme Anxiety Goose Flesh Skin: 0=Smooth Skin COWS Score: 25 CIWA Score - CIWA Score Nausea/Vomitin Muscle Tremors: 4-Moderate,w/Arms Extend Anxiety: 4-Mod. Anxious/Guarded Agitation: 4-Moderately Restless Paroxysmal Sweats: 3 Orientation: 0-Oriented Tacttile Disturbances: 2-Mild Itch/Numbness/Burn Auditory Disturbances: 0-None Visual Disturbances: 0-None Headache: 2-Mild CIWA-Ar Total Score: 22 Admission ROS S - HPI Chief Complaint: c/o withdrawal sx's from alcohol, opiates and benzo's. seeking detox. Allergies/Adverse Reactions: Allergies Allergy/AdvReac Type Severity Reaction Status Date / Time shellfish derived Allergy Severe Swelling Verified 08/22/17 01:27 Penicillins Allergy Mild Hives Verified 08/22/17 01:27 SHELLFISH Allergy Severe Swelling Uncoded 08/22/17 01:27 History of Present Illness: 37 Y.O. MALE WITH LONG HX/O POLYSUBSTANCE ABUSE ADMITTED TO DETOX FOR ALCOHOLISM , HEROIN AND XANAX DEPENDENCE. CLIENT IS KNOWN TO THIS DETOX. HX/O MULTIPLE AMA. D/W CLIENT AT LENGTH ABOUT ADHERENCE AND COMPLIANCE. SELF REFERRED. REPORTS LONGEST CLEAN TIME 6 MONTHS. Exam Limitations: No Limitations - Ebola screening Have you traveled outside of the country in the last 21 days: No Have you had contact with anyone from an Ebola affected area: No Have you been sick,other than usual withdrawal symptoms: No Do you have a fever: No - Review of Systems Constitutional: Chills, Loss of Appetite, Malaise, Night Sweats, Changes in sleep EENT: reports: Other (RINORRHEA) Respiratory: reports: No Symptoms reported Cardiac: reports: No Symptoms Reported GI: reports: Diarrhea, Nausea, Abdominal cramping : reports: No Symptoms Reported Musculoskeletal: reports: Joint Pain Integumentary: reports: No Symptoms Reported Neuro: reports: No Symptoms reported Endocrine: reports: No Symptoms Reported Hematology: reports: No Symptoms Reported Psychiatric: reports: Anxious, Depressed Other Systems: Reviewed and Negative Patient History - Patient Medical History Hx Anemia: No Hx Asthma: No Hx Chronic Obstructive Pulmonary Disease (COPD): No Hx Cancer: No Hx Cardiac Disorders: No Hx Congestive Heart Failure: No Hx Hypertension: No Hx Hypercholesterolemia: No Hx Pacemaker: No HX Cerebrovascular Accident: No Hx Seizures: No Hx Dementia: No Hx Diabetes: No Hx Gastrointestinal Disorders: Yes (acid reflux) Hx Liver Disease: Yes Hx Genitourinary Disorders: No Hx Sexually Transmitted Disorders: No Hx Renal Disease (ESRD): No Hx Thyroid Disease: No Hx Human Immunodeficiency Virus (HIV): No Hx Hepatitis C: Yes (not treated) Hx Depression: Yes (anxiety,insomnia) Hx Suicide Attempt: No Hx Bipolar Disorder: No Hx Schizophrenia: No Other Medical History: DENIES - Patient Surgical History Past Surgical History: No Hx Neurologic Surgery: No Hx Cataract Extraction: No Hx Cardiac Surgery: No Hx Lung Surgery: No Hx Breast Surgery: No Hx Breast Biopsy: No Hx Abdominal Surgery: No Hx Appendectomy: No Hx Cholecystectomy: No Hx Genitourinary Surgery: No Hx Section: No Hx Orthopedic Surgery: No Anesthesia Reaction: No - PPD History Previous Implant?: Yes Documented Results: Negative w/proof Implanted On Prior [facility] Admission?: Yes Date: 01/30/17 Results: 0 mm PPD to be Administered?: No - Smoking Cessation Smoking history: Current every day smoker Have you smoked in the past 12 months: Yes Aproximately how many cigarettes per day: 10 Cigars Per Day: 0 Hx Chewing Tobacco Use: No Initiated information on smoking cessation: Yes 'Breaking Loose' booklet given: 08/22/17 - Substance & Tx. History Hx Alcohol Use: Yes Hx Substance Use: Yes Substance Use Type: Alcohol, Cocaine, Heroin, Marijuana, Tranquilizers (XANAX) Hx Substance Use Treatment: Yes ([facility]) - Substances Abused HEROINE Route: Injection Frequency: Daily Amount used: 15 Age of first use: 14 Date of Last Use: 08/21/17 BEER Route: Oral Frequency: Daily Amount used: 1-6 PACK Age of first use: 11 Date of Last Use: 08/21/17 XANAX Route: Oral Frequency: Daily Amount used: 4MG Age of first use: 31 Date of Last Use: 08/21/17 COCAINE Route: Injection Frequency: Daily Amount used: $40 Age of first use: 13 Date of Last Use: 08/21/17 THC Route: Smoking Frequency: 3-6 times per week Amount used: 1 BLUNT Age of first use: 11 Date of Last Use: 08/20/17 Family Disease History - Family Disease History Family Disease History: Diabetes: Father (, HIV), Brother, Sister, Other : Father, Mother (, hiv) Admission Physical Exam [facility] - Physical General Appearance: Yes: Disheveled, Mild Distress, Tremorous, Anxious HEENTM: Yes: EOMI, Normocephalic, Pharynx Normal, Other (MISSING TEETH) Respiratory: Yes: Chest Non-Tender, Lungs Clear, Normal Breath Sounds, No Respiratory Distress, No Accessory Muscle Use Neck: Yes: No masses,lesions,Nodules, Supple, Trachea in good position Breast: Yes: Breast Exam Deferred Cardiology: Yes: Regular Rhythm, Regular Rate, S1, S2 Abdominal: Yes: Normal Bowel Sounds, Non Tender, Soft Genitourinary: Yes: Within Normal Limits Back: Yes: Within Normal Limits Musculoskeletal: Yes: full range of Motion, Gait Steady Extremities: Yes: Normal Range of Motion, Non-Tender, Tremors Neurological: Yes: Alert, Motor Strength 5/5 Integumentary: Yes: Warm, Moist Lymphatic: Yes: Within Normal Limits - Diagnostic (1) Alcohol dependence with uncomplicated withdrawal Current Visit: Yes Status: Chronic (2) Cannabis dependence, uncomplicated Current Visit: Yes Status: Chronic (3) Cocaine dependence, uncomplicated Current Visit: Yes Status: Chronic (4) Opioid dependence with withdrawal Current Visit: Yes Status: Chronic (5) Sedative, hypnotic or anxiolytic dependence with withdrawal, uncomplicated Current Visit: Yes Status: Chronic (6) Gastroesophageal reflux disease Current Visit: Yes Status: Chronic (7) Hepatitis C carrier Current Visit: Yes Status: Chronic (8) Nicotine dependence Current Visit: Yes Status: Chronic Qualifiers: Nicotine product type: cigarettes Substance use status: in withdrawal Qualified Code(s): F17.213 - Nicotine dependence, cigarettes, with withdrawal; F17.213 - Nicotine dependence, cigarettes, with withdrawal Comment: all dependencies acute and chronic use Cleared for Admission [facility] - Detox or Rehab [facility] Level of Care: Medically Managed Detox Regimen/Protocol: Methadone/Valium [facility] Breath Alcohol Content Breath Alcohol Content: 0 Vital Signs - Vital Signs Vital Signs Refused: No Temperature: 98.2 F Temperature Source: Oral Pulse Rate: 82 Respiratory Rate: 20 Blood Pressure: 140/84 BP Location: Left Arm Blood Pressure Position: Sitting - Height Height: 5 ft 7 in - Weight Weight: 66.224 kg Weight Measurement Method: Standing Scale Body Mass Index (BMI): 22.8 Urine Drug Screen - Test Device Lot Number: [id number] Expiration Date: 04/19/19 - Control Is Test Valid: Yes - Results Drug Screen Negative: No Urine Drug Screen Results: THC-Marijuana, INDIGO-Cocaine, OPI-Opiates, BZO- Benzodiazepines, OXY-Oxycodone
[2017-08-22 01:39] VITALS: BMI 22.8
[2017-08-22] MEDS ORDERED: LOPERAMIDE HCL 2 MG CAPSULE PO PRN (01:39)
[2017-08-22] MEDS ORDERED: P-EPHED 60MG/TRIPROLIDI 2.5MG TABLET PO PRN (01:39)
[2017-08-22] MEDS ORDERED: guaiFENesin/D-METHORPHAN HB 10 ML UNIT-DOSE CUPS PO PRN (01:39)
[2017-08-22] MEDS ORDERED: MAGNESIUM HYDROX 2400MG/30ML ORAL SUSPENSION 30 ML CUP PO PRN (01:39)
[2017-08-22] MEDS ORDERED: NICOTINE POLACRILEX 2 MG GUM BC PRN (01:39)
[2017-08-22] MEDS ORDERED: MAGNESIUM CITRATE 300 ML BOTTLE PO PRN (01:39)
[2017-08-22] MEDS ORDERED: MAG HYDROX/AL HYDROX/SIMETH 30 ML UNIT-DOSE CUP PO PRN (01:39)
[2017-08-22] MEDS ORDERED: diazePAM 5 MG TABLET PO ONE (01:39)
[2017-08-22] MEDS ORDERED: diphenhydrAMINE HCL 50 MG CAPSULE PO PRN (01:39)
[2017-08-22] MEDS ORDERED: ACETAMINOPHEN 325 MG TABLET (FP) PO PRN (01:39)
[2017-08-22] MEDS ORDERED: METHADONE HCL 10 MG TABLET (FOR DETOX USE ONLY) PO ONE ×3 (01:39→23:00)
[2017-08-22] MEDS ORDERED: MENTHOL/PHENOL 1 EACH UD MM PRN (01:39)
[2017-08-22] MEDS ORDERED: IBUPROFEN 400 MG TABLET (FP) PO PRN (01:39)
[2017-08-22] MEDS: diazePAM 5 MG TABLET PO SCH ×3 (05:48→22:05)
[2017-08-22 09:37] LABS: MCH 28.6 pg (25.7-33.7); MCHC 33.8 g/dl (32.0-35.9); MEAN CELL VOLUME 84.7 fl (80-96); MEAN PLT VOLUME 9.4 fl (7.5-11.1); PLATELET COUNT 184 K/MM3 (134-434); RDW 14.4 % (11.9-15.9); WHITE BLOOD COUNT 6.5 K/mm3 (4.0-10.0)
[2017-08-22] MEDS ORDERED: ONDANSETRON *ODT* 4 MG TABLET SL PRN (10:17)
[2017-08-22] MEDS: diazePAM 5 MG TABLET PO PRN (10:18)
[2017-08-22] MEDS: NICOTINE 14 MG/24 HOURS TOPICAL PATCH TD SCH (10:19)
[2017-08-22 10:27] LABS: ALBUMIN 3.3 g/dl (3.4-5.0); ALK PHOS 81 U/L (45-117); ANION GAP 6 (8-16); BILIRUBIN,TOTAL 1.3 mg/dL (0.2-1.0); CALCIUM 8.9 mg/dL (8.5-10.1); CO2 29 mmol/L (21-32); CREATININE 0.8 mg/dL (0.7-1.3); GLUCOSE,RANDOM 86 mg/dL (74-106); SGOT/AST 35 U/L (15-37); SGPT/ALT 35 U/L (12-78); TOT PROT 7.1 g/dl (6.4-8.2)
--- NOTE | 2017-08-22 11:30 | PN ---
[facility] CIWA - CIWA Score Nausea/Vomitin Muscle Tremors: None Anxiety: 4-Mod. Anxious/Guarded Agitation: 2 Paroxysmal Sweats: 4-Forehead w/Sweat Beads Orientation: 2-Disoriented Date<2 days Tacttile Disturbances: 2-Mild Itch/Numbness/Burn Auditory Disturbances: 0-None Visual Disturbances: 0-None Headache: 0-None Present CIWA-Ar Total Score: 17 [facility] COWS - Scale Resting Pulse: 1= [place] 81-100 Sweatin= Chills/Flushing Restless Observation: 1= Difficult to Sit Still Pupil Size: 0= Normal to Room Light Bone or Joint Aches: 2= Severe Diffuse Aches Runny Nose/ Eye Tearin= None GI Upset > 30mins: 2= Nausea/Diarrhea Tremor Observation of Outstretched Hands: 0= None Yawning Observation: 1= 1-2x During Session Anxiety or Irritability: 2=Irritable/Anxious Goose Flesh Skin: 3=Piloerection COWS Score: 13 [facility] Progress Note (SOAP) Subjective: Interrupted sleep, Sweating, Diarrhea, Nausea, Fatigue, Body Aches. Objective: PT. A & O X 2 (DISORIENTED ABOUT DAY / DATE). NO ACUTE DISTRESS. 08/22/17 11:28 Vital Signs Temperature 98.1 F 08/22/17 09:19 Pulse Rate 88 08/22/17 09:19 Respiratory Rate 18 08/22/17 09:19 Blood Pressure 122/70 08/22/17 09:19 O2 Sat by Pulse Oximetry (%) Laboratory Tests 08/22/17 08/22/17 08:00 08:00 WBC 6.5 RBC 4.78 Hgb 13.7 Hct 40.5 MCV 84.7 MCH 28.6 MCHC 33.8 RDW 14.4 Plt Count 184 MPV 9.4 Sodium 137 Potassium 3.5 D Chloride 102 Carbon Dioxide 29 D Anion Gap 6 L BUN 6 L D Creatinine 0.8 Creat Clearance w eGFR > 60 Random Glucose 86 D Calcium 8.9 Total Bilirubin 1.3 H D AST 35 ALT 35 Alkaline Phosphatase 81 Total Protein 7.1 Albumin 3.3 L D LABS NOTED. RPR, HIV AB, AND UA RESULTS PENDING. 08/22/17 11:30 Assessment: 08/22/17 11:29 WITHDRAWAL SYMPTOMS. Plan: CONTINUE DETOX. PRN ZOFRAN SL FOR NAUSEA / VOMITING.
[2017-08-22 11:42] LABS: HIV 1 & 2 AB NEGATIVE; HIV 1 AGp24 NEGATIVE
--- NOTE | 2017-08-22 11:42 | CONSULT ---
[facility] Psychiatric Consult - Data Date of interview: 08/22/17 Admission source: 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 He started drinking beer, smoking marijuana at age 11, using cocaine at 13 , heroin at 14 and xanax at 31. He consumes one 6pk of beer, 15 bags of heroin, $40 worth of cocaine, 4 mg of xanax and one blunt of marijuana daily. Last smoked marijuana on 08/20/17, drank beer, used heroin, cocaine and xanax o Medical History: Significant for GERD and Hep C. smokes 10 cigarettes daily Psychiatric History: Denies history of previous psychiatric treatment. However, reports sleeping poorly Physical/Sexual Abuse/Trauma History: Denies history of verbal, physical or sexual abuse as well as DV relationship Additional Comment: Reports history of 8 previous arrests including 2 felony convictions Mental Status Exam - Mental Status Exam Alert and Oriented to: Time, Place, Person Cognitive Function: Fair Patient Appearance: Well Groomed Mood: Hopeful, Euthymic Affect: Appropriate Patient Behavior: Cooperative Speech Pattern: Clear Voice Loudness: Normal Thought Process: Intact, Goal Oriented Hallucinations: Denies Suicidal Ideation: Denies Homicidal Ideation: Denies Insight/Judgement: Poor Sleep: Poorly Appetite: Good Muscle strength/Tone: Normal Gait/Station: Normal Psychiatric Findings - Problem List ([place] 1, 2,3) (1) Alcohol dependence with uncomplicated withdrawal Current Visit: Yes Status: Chronic (2) Opioid dependence with withdrawal Current Visit: Yes Status: Chronic (3) Cocaine dependence, uncomplicated Current Visit: Yes Status: Chronic (4) Sedative, hypnotic or anxiolytic dependence with withdrawal, uncomplicated Current Visit: Yes Status: Chronic (5) Cannabis dependence, uncomplicated Current Visit: Yes Status: Chronic (6) Nicotine dependence Current Visit: Yes Status: Chronic Qualifiers: Nicotine product type: cigarettes Substance use status: in withdrawal Qualified Code(s): F17.213 - Nicotine dependence, cigarettes, with withdrawal; F17.213 - Nicotine dependence, cigarettes, with withdrawal Comment: all dependencies acute and chronic use (7) Gastroesophageal reflux disease Current Visit: Yes Status: Chronic (8) Hepatitis C carrier Current Visit: Yes Status: Chronic - Initial Treatment Plan Initial Treatment Plan: 1) Start Ambien 10 mg po HS prn for insomnia. 2) Continue inpatient detoxification
[2017-08-22] MEDS ORDERED: FLU VACCINE QUAD 60 MCG/0.5 ML (MDV 17-18) IM ONE (12:00)
[2017-08-22 17:04] LABS: URINE APPEARANCE CLEAR; URINE BILIRUBIN NEGATIVE (NEGATIVE); URINE BLOOD NEGATIVE (NEGATIVE); URINE COLOR YELLOW; URINE GLUCOSE (UA) NEGATIVE (NEGATIVE); URINE KETONE NEGATIVE (NEGATIVE); URINE LEUK ESTERASE NEGATIVE (NEGATIVE); URINE NITRITE NEGATIVE (NEGATIVE); URINE PROTEIN NEGATIVE (NEGATIVE); URINE UROBILINOGEN 4.0 E.U/dl mg/dL (0.2-1.0)
--- NOTE | 2017-08-22 20:39 | EKG ---
Test Reason : Blood Pressure : / mmHG Vent. Rate : 058 BPM Atrial Rate : 058 BPM P-R Int : 122 ms QRS Dur : 088 ms QT Int : 392 ms P-R-T Axes : 069 -06 055 degrees QTc Int : 384 ms SINUS BRADYCARDIA RSR' IN V2 ATRIAL ABNORMALITY WHEN COMPARED WITH ECG OF 01-MAY-2017 20:39, APPEARANCE OF RSR' IN V2 REPEAT EKG IF CLINICALLY INDICATED Confirmed by CHAVEZ DALTON MD ([id number]) on 08/22/2017 8:38:50 PM Referred By: Confirmed By:CHAVEZ DALTNO MD
[2017-08-23] MEDS: diazePAM 5 MG TABLET PO SCH ×3 (06:18→22:03)
[2017-08-23] MEDS ORDERED: METHADONE HCL 10 MG TABLET (FOR DETOX USE ONLY) PO SCH (10:00)
[2017-08-23] MEDS: diazePAM 5 MG TABLET PO PRN (10:09)
[2017-08-23] MEDS: NICOTINE 14 MG/24 HOURS TOPICAL PATCH TD SCH (10:10)
--- NOTE | 2017-08-23 11:08 | PN ---
S CIWA - CIWA Score Nausea/Vomitin Muscle Tremors: 3 Anxiety: 4-Mod. Anxious/Guarded Agitation: 1-Slight > Activity Paroxysmal Sweats: No Perspiration Orientation: 0-Oriented Tacttile Disturbances: 2-Mild Itch/Numbness/Burn Auditory Disturbances: 2-Mild Harshness/Frighten Visual Disturbances: 0-None Headache: 3-Moderate CIWA-Ar Total Score: 17 BHS COWS - Scale Resting Pulse: 1= [place] 81-100 Sweatin= Chills/Flushing Restless Observation: 0= Sits Still Pupil Size: 0= Normal to Room Light Bone or Joint Aches: 1= Mild Discomfort Runny Nose/ Eye Tearin= Nasal Congestion GI Upset > 30mins: 2= Nausea/Diarrhea Tremor Observation of Outstretched Hands: 2= Slight Tremor Visible Yawning Observation: 2= >3x During Session Anxiety or Irritability: 2=Irritable/Anxious Goose Flesh Skin: 0=Smooth Skin COWS Score: 12 S Progress Note (SOAP) Subjective: Interrupted sleep, Stomach Cramping, H/A, Tremors, Diarrhea. Objective: PT. A & O X 3. NO ACUTE DISTRESS. PT. DENIES CHEST PAIN. 08/23/17 11:07 Vital Signs Temperature 96.9 F L 08/23/17 09:37 Pulse Rate 84 08/23/17 09:37 Respiratory Rate 20 08/23/17 09:37 Blood Pressure 150/54 08/23/17 09:37 O2 Sat by Pulse Oximetry (%) Laboratory Tests 08/22/17 08/22/17 08/22/17 08:00 08:00 08:00 WBC 6.5 RBC 4.78 Hgb 13.7 Hct 40.5 MCV 84.7 MCH 28.6 MCHC 33.8 RDW 14.4 Plt Count 184 MPV 9.4 Sodium 137 Potassium 3.5 D Chloride 102 Carbon Dioxide 29 D Anion Gap 6 L BUN 6 L D Creatinine 0.8 Creat Clearance w eGFR > 60 Random Glucose 86 D Calcium 8.9 Total Bilirubin 1.3 H D AST 35 ALT 35 Alkaline Phosphatase 81 Total Protein 7.1 Albumin 3.3 L D Urine Color Urine Appearance Urine pH Ur Specific [place] Urine Protein Urine Glucose (UA) Urine Ketones Urine Blood Urine Nitrite Urine Bilirubin Urine Urobilinogen RPR Titer Nonreactive HIV 1&2 Antibody Screen HIV P24 Antigen 08/22/17 08/22/17 08:00 15:00 WBC RBC Hgb Hct MCV MCH MCHC RDW Plt Count MPV Sodium Potassium Chloride Carbon Dioxide Anion Gap BUN Creatinine Creat Clearance w eGFR Random Glucose Calcium Total Bilirubin AST ALT Alkaline Phosphatase Total Protein Albumin Urine Color Yellow Urine Appearance Clear Urine pH 7.0 Ur Specific [place] 1.010 Urine Protein Negative Urine Glucose (UA) Negative Urine Ketones Negative Urine Blood Negative Urine Nitrite Negative Urine Bilirubin Negative Urine Urobilinogen 4.0 e.u/dl RPR Titer HIV 1&2 Antibody Screen Negative HIV P24 Antigen Negative LABS NOTED. Assessment: 08/23/17 11:07 WITHDRAWAL SYMPTOMS. Plan: CONTINUE DETOX. INCREASE DAILY PO FLUID INTAKE.
[2017-08-23] MEDS: ZOLPIDEM TARTRATE 10 MG TABLET (PARK CARE ONLY) PO PRN (22:03)
--- NOTE | 2017-08-23 22:05 | PN ---
S Progress Note Note: received nurse call that the patient seen by psychiatrist began ambien prn, ambien not available x 2 days ambien x 1 does continue detox
[2017-08-24] MEDS: diazePAM 5 MG TABLET PO PRN ×2 (05:40→18:34)
[2017-08-24] MEDS: diazePAM 5 MG TABLET PO SCH ×2 (09:44→22:10)
[2017-08-24] MEDS: NICOTINE 14 MG/24 HOURS TOPICAL PATCH TD SCH (09:44)
[2017-08-24] MEDS ORDERED: METHADONE HCL 5 MG TABLET (FOR DETOX USE ONLY) PO SCH (10:00)
[2017-08-24] MEDS ORDERED: cloNIDine HCL 0.1 MG TABLET PO ONE (11:26)
--- NOTE | 2017-08-24 11:26 | PN ---
[facility] Progress Note (SOAP) Subjective: Nausea, Stomach Cramping, Diarrhea, Tremors, Chills, Sweating. Objective: PT. A & O X 3, OBSERVED AMBULATING ON UNIT. NO ACUTE DISTRESS. PT. DENIES CHEST PAIN. 08/24/17 11:24 Vital Signs Temperature 97.6 F 08/24/17 09:15 Pulse Rate 92 H 08/24/17 09:15 Respiratory Rate 20 08/24/17 09:15 Blood Pressure 135/71 08/24/17 09:15 O2 Sat by Pulse Oximetry (%) Laboratory Tests 08/22/17 08/22/17 08/22/17 08:00 08:00 08:00 WBC 6.5 RBC 4.78 Hgb 13.7 Hct 40.5 MCV 84.7 MCH 28.6 MCHC 33.8 RDW 14.4 Plt Count 184 MPV 9.4 Sodium 137 Potassium 3.5 D Chloride 102 Carbon Dioxide 29 D Anion Gap 6 L BUN 6 L D Creatinine 0.8 Creat Clearance w eGFR > 60 Random Glucose 86 D Calcium 8.9 Total Bilirubin 1.3 H D AST 35 ALT 35 Alkaline Phosphatase 81 Total Protein 7.1 Albumin 3.3 L D Urine Color Urine Appearance Urine pH Ur Specific [place] Urine Protein Urine Glucose (UA) Urine Ketones Urine Blood Urine Nitrite Urine Bilirubin Urine Urobilinogen RPR Titer Nonreactive HIV 1&2 Antibody Screen HIV P24 Antigen 08/22/17 08/22/17 08:00 15:00 WBC RBC Hgb Hct MCV MCH MCHC RDW Plt Count MPV Sodium Potassium Chloride Carbon Dioxide Anion Gap BUN Creatinine Creat Clearance w eGFR Random Glucose Calcium Total Bilirubin AST ALT Alkaline Phosphatase Total Protein Albumin Urine Color Yellow Urine Appearance Clear Urine pH 7.0 Ur Specific [place] 1.010 Urine Protein Negative Urine Glucose (UA) Negative Urine Ketones Negative Urine Blood Negative Urine Nitrite Negative Urine Bilirubin Negative Urine Urobilinogen 4.0 e.u/dl RPR Titer HIV 1&2 Antibody Screen Negative HIV P24 Antigen Negative LABS NOTED. Assessment: 08/24/17 11:25 WITHDRAWAL SYMPTOMS. Plan: CONTINUE DETOX. INCREASE DAILY PO FLUID INTAKE. CLONIDINE, 0.1 MG PO x 1 FOR LINGERING WITHDRAWAL SYMPTOMS.
[2017-08-24] MEDS: ZOLPIDEM TARTRATE 10 MG TABLET (PARK CARE ONLY) PO PRN (22:10)
[2017-08-25 06:54] VITALS: BP 119/71; PULSE 88; TEMP 97.5
[2017-08-25] MEDS: NICOTINE 14 MG/24 HOURS TOPICAL PATCH TD SCH (09:57)
[2017-08-25] MEDS ORDERED: METHADONE HCL 5 MG TABLET (FOR DETOX USE ONLY) PO SCH (10:00)
--- NOTE | 2017-08-25 14:26 | DS ---
[facility] Detox Discharge Summary Admission Date: 08/22/17 Discharge Date: 08/25/17 - History Present History: Alcohol Dependence, Cannabis Dependence, Cocaine Dependence, Opioid Dependence, Sedative Dependence Additional Comments: PATIENT CURRENTLY REPORTS MINIMAL DETOX SYMPTOMS AND THAT HE FEELS WELL OVERALL. AFTER DISCHARGE FROM DETOX, PATIENT WILL GO TO [facility]) FOR AFTERCARE. PATIENT WAS DISCHARGED FROM DETOX UNIT IN STABLE MEDICAL CONDITION. Pertinent Past History: GERD, Hep C, Depression / Anxiety, Insomnia. - Physical Exam Results Vital Signs: Vital Signs Temperature 97.5 F L 08/25/17 06:54 Pulse Rate 88 08/25/17 06:54 Respiratory Rate 18 08/25/17 06:54 Blood Pressure 119/71 08/25/17 06:54 O2 Sat by Pulse Oximetry (%) Pertinent Admission Physical Exam Findings: WITHDRAWAL SYMPTOMS. Laboratory Tests 08/22/17 08/22/17 08/22/17 08:00 08:00 08:00 WBC 6.5 RBC 4.78 Hgb 13.7 Hct 40.5 MCV 84.7 MCH 28.6 MCHC 33.8 RDW 14.4 Plt Count 184 MPV 9.4 Sodium 137 Potassium 3.5 D Chloride 102 Carbon Dioxide 29 D Anion Gap 6 L BUN 6 L D Creatinine 0.8 Creat Clearance w eGFR > 60 Random Glucose 86 D Calcium 8.9 Total Bilirubin 1.3 H D AST 35 ALT 35 Alkaline Phosphatase 81 Total Protein 7.1 Albumin 3.3 L D Urine Color Urine Appearance Urine pH Ur Specific [place] Urine Protein Urine Glucose (UA) Urine Ketones Urine Blood Urine Nitrite Urine Bilirubin Urine Urobilinogen RPR Titer Nonreactive HIV 1&2 Antibody Screen HIV P24 Antigen 08/22/17 08/22/17 08:00 15:00 WBC RBC Hgb Hct MCV MCH MCHC RDW Plt Count MPV Sodium Potassium Chloride Carbon Dioxide Anion Gap BUN Creatinine Creat Clearance w eGFR Random Glucose Calcium Total Bilirubin AST ALT Alkaline Phosphatase Total Protein Albumin Urine Color Yellow Urine Appearance Clear Urine pH 7.0 Ur Specific [place] 1.010 Urine Protein Negative Urine Glucose (UA) Negative Urine Ketones Negative Urine Blood Negative Urine Nitrite Negative Urine Bilirubin Negative Urine Urobilinogen 4.0 e.u/dl RPR Titer HIV 1&2 Antibody Screen Negative HIV P24 Antigen Negative LABS NOTED. - Treatment Hospital Course: Detox Protocol Followed, Detoxed Safely, Responded well, Discharged Condition Good Patient has Accepted a Rehab Referral to: PT. GOING TO [facility] ([facility] [place] - Medication Discharge Medications: Ambulatory Orders Pantoprazole Sodium [Protonix -] 40 mg PO DAILY 01/28/17 Quetiapine Fumarate [Seroquel -] 50 mg PO HS #30 tablet 01/28/17 - Diagnosis (1) Alcohol dependence with uncomplicated withdrawal Status: Acute (2) Cannabis dependence, uncomplicated Status: Acute (3) Cocaine dependence, uncomplicated Status: Acute (4) Gastroesophageal reflux disease Status: Chronic (5) Hepatitis C carrier Status: Chronic (6) Nicotine dependence Status: Chronic Qualifiers: Nicotine product type: cigarettes Substance use status: in withdrawal Qualified Code(s): F17.213 - Nicotine dependence, cigarettes, with withdrawal; F17.213 - Nicotine dependence, cigarettes, with withdrawal (7) Opioid dependence with withdrawal Status: Acute (8) Sedative, hypnotic or anxiolytic dependence with withdrawal, uncomplicated Status: Acute - AMA Did Patient Leave Against Medical Advice: No
[2017-08-26] MEDS ORDERED: METHADONE HCL 10 MG TABLET (FOR DETOX USE ONLY) PO SCH (10:00)
[2017-08-26] MEDS ORDERED: diazePAM 5 MG TABLET PO SCH (10:00)
[2017-08-27] MEDS ORDERED: METHADONE HCL 5 MG TABLET (FOR DETOX USE ONLY) PO SCH (06:00)
== END 2017-08-25 09:49 | disposition home or self-care (01) | DRG 773 ==
LOC: YASAS 00:52 → Y3N 01:43
PROVIDERS: ADMIT Internal Medicine; ATTEND Internal Medicine
PROC: HZ2ZZZZ Detoxification Services for Substance Abuse Treatment (ICD-10-PCS; principal; 2017-08-22)
DX: F11.23 Opioid dependence with withdrawal (principal); F13.230 Sedative, hypnotic or anxiolytic dependence with withdrawal, uncomplicated; F10.230 Alcohol dependence with withdrawal, uncomplicated; F14.20 Cocaine dependence, uncomplicated; F12.20 Cannabis dependence, uncomplicated; F17.213 Nicotine dependence, cigarettes, with withdrawal; K21.9 Gastro-esophageal reflux disease without esophagitis; B18.2 Chronic viral hepatitis C; Z91.013 Allergy to seafood; Z88.8 Allergy status to other drugs, medicaments and biological substances
CPT/HCPCS: 36415; 80053; 81003; 85027; 86593; 87389; 93005; 93010

== ENCOUNTER 2018-06-05 17:23 | Inpatient (IN) | payer OTHER ==
[2018-06-05 19:32] VITALS: BMI 21.9
--- NOTE | 2018-06-05 21:28 | HP ---
COWS - Scale Resting Pulse: 0= [place] 80 or Below Sweatin= Chills/Flushing Restless Observation: 1= Difficult to Sit Still Pupil Size: 1= Pupils >than Normal Bone or Joint Aches: 1= Mild Discomfort Runny Nose/ Eye Tearin= Runny Nose/Eyes GI Upset > 30mins: 2= Nausea/Diarrhea Tremor Observation: 2= Slight Tremor Visible Yawning Observation: 2= >3x During Session Anxiety or Irritability: 2=Irritable/Anxious Goose Flesh Skin: 3=Piloerection COWS Score: 17 CIWA Score - CIWA Score Nausea/Vomitin Muscle Tremors: 2 Anxiety: 3 Agitation: 3 Paroxysmal Sweats: 3 Orientation: 0-Oriented Tacttile Disturbances: 1-Very Mild Itch/Numbness Auditory Disturbances: 0-None Visual Disturbances: 0-None Headache: 0-None Present CIWA-Ar Total Score: 15 Admission ROS S - [facility] Chief Complaint: alcohol and heroin withdrawal symptoms Allergies/Adverse Reactions: Allergies Allergy/AdvReac Type Severity Reaction Status Date / Time shellfish derived Allergy Severe Swelling Verified 08/22/17 01:27 Penicillins Allergy Mild Hives Verified 08/22/17 01:27 SHELLFISH Allergy Severe Swelling Uncoded 08/22/17 01:27 History of Present Illness: 38 yo male with hx of alcohol, IV heroin, cocaine, xanax, nicotine dependence is here seeking detox. Last detox [facility] 08/22/17 -08/25/17. PMHX: Hep C, anxiety, depression. Denies suicidal / homicidal, denies hx of suicide attempt in the past. Reports hx of OD in 1995. Denies hx of seizures or blackouts. Reports longest period of sobriety four months during 2017. Exam Limitations: No Limitations - Ebola screening Have you been sick,other than usual withdrawal symptoms: No - Review of Systems Constitutional: Chills, Diaphoresis, Loss of Appetite, Changes in sleep, Unintentional Wgt. Loss (as per patient 40 lbs weight loss in past 4 months) EENT: reports: No Symptoms Reported Respiratory: reports: No Symptoms reported Cardiac: reports: No Symptoms Reported GI: reports: Nausea, Poor Appetite, Poor Fluid Intake, Abdominal cramping : reports: No Symptoms Reported Musculoskeletal: reports: Back Pain, Joint Pain Integumentary: reports: Pruritus Neuro: reports: Weakness Endocrine: reports: Increased Thirst Hematology: reports: No Symptoms Reported Psychiatric: reports: Orientated x3, Anxious Other Systems: Reviewed and Negative Patient History - Patient Medical History Hx Anemia: No Hx Asthma: No Hx Chronic Obstructive Pulmonary Disease (COPD): No Hx Cancer: No Hx Cardiac Disorders: No Hx Congestive Heart Failure: No Hx Hypertension: No Hx Hypercholesterolemia: No Hx Pacemaker: No HX Cerebrovascular Accident: No Hx Seizures: No Hx Dementia: No Hx Diabetes: No Hx Gastrointestinal Disorders: No Hx Liver Disease: Yes (Hep C ) Hx Genitourinary Disorders: No Hx Sexually Transmitted Disorders: No Hx Renal Disease (ESRD): No Hx Thyroid Disease: No Hx Human Immunodeficiency Virus (HIV): No (last tested 2016) Hx Hepatitis C: Yes (not treated) Hx Depression: Yes Hx Suicide Attempt: No Hx Bipolar Disorder: No Hx Schizophrenia: No - Patient Surgical History Past Surgical History: No Hx Neurologic Surgery: No Hx Cataract Extraction: No Hx Cardiac Surgery: No Hx Lung Surgery: No Hx Breast Surgery: No Hx Breast Biopsy: No Hx Abdominal Surgery: No Hx Appendectomy: No Hx Cholecystectomy: No Hx Genitourinary Surgery: No Hx Section: No Hx Orthopedic Surgery: No Anesthesia Reaction: No - PPD History Documented Results: Negative w/proof Date: 01/30/17 Results: 0 mm PPD to be Administered?: Yes - Smoking Cessation Smoking history: Current every day smoker Have you smoked in the past 12 months: Yes Aproximately how many cigarettes per day: 20 Cigars Per Day: 0 Hx Chewing Tobacco Use: No Initiated information on smoking cessation: Yes 'Breaking Loose' booklet given: 06/05/18 - Substance & Tx. History Hx Alcohol Use: Yes Hx Substance Use: Yes Substance Use Type: Alcohol, Cocaine, Heroin, Tranquilizers Hx Substance Use Treatment: Yes (Last detox [facility] 08/22/17 -08/25/17) - Substances Abused Heroin Route: Injection Frequency: Daily Amount used: 15 - 18 bags Age of first use: 14 Date of Last Use: 06/05/18 Alcohol Route: Oral Frequency: Daily Amount used: 6 x 18oz beer + 1 pint vodka Age of first use: 11 Date of Last Use: 06/05/18 Alprazolam (Xanax) Route: Oral Frequency: Daily Amount used: 2 x 2 mg Age of first use: 31 Date of Last Use: 06/05/18 Cocaine Route: Injection Frequency: Daily Amount used: $60 Age of first use: 14 Date of Last Use: 06/04/18 Family Disease History - Family Disease History Family Disease History: Diabetes: Father (, HIV), Brother, Sister, Other : Father, Mother (, hiv) Admission Physical Exam S - Vital Signs Vital Signs: Vital Signs - 24 hr 06/05/18 19:29 Temperature 97.8 F Pulse Rate 59 L Respiratory 18 Rate Blood Pressure 120/70 - Physical General Appearance: Yes: Disheveled, Moderate Distress, Thin, Tremorous, Anxious HEENTM: Yes: EOMI, Hearing grossly Normal, Normal ENT Inspection, Normocephalic , Normal Voice, SUSY, Pharynx Normal, Tm's normal Respiratory: Yes: Chest Non-Tender, Lungs Clear, Normal Breath Sounds, No Respiratory Distress, No Accessory Muscle Use Neck: Yes: No masses,lesions,Nodules, Trachea in good position Breast: Yes: Breast Exam Deferred Cardiology: Yes: Regular Rhythm, Regular Rate, S1, S2 Abdominal: Yes: Normal Bowel Sounds, Non Tender, Flat, Soft Genitourinary: Yes: Within Normal Limits Back: Yes: Normal Inspection Musculoskeletal: Yes: full range of Motion, Gait Steady, Pelvis Stable, Back pain Extremities: Yes: Normal Capillary Refill, Normal Inspection, Normal Range of Motion, Non-Tender Neurological: Yes: 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 II-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 NML intact, Fully Oriented, Alert, Motor Strength 5/5, Normal Response, Depressed Affect Integumentary: Yes: Normal Color, Warm, Diaphoresis, Track [place] (bilateral forearms no signs of infection) Lymphatic: Yes: Within Normal Limits - Diagnostic (1) IV drug user Current Visit: Yes Status: Acute (2) Alcohol dependence with uncomplicated withdrawal Current Visit: Yes Status: Acute (3) Cannabis dependence, uncomplicated Current Visit: Yes Status: Acute (4) Cocaine dependence, uncomplicated Current Visit: Yes Status: Acute (5) Opioid dependence with withdrawal Current Visit: No Status: Acute (6) Weight decreased Current Visit: No Status: Acute (7) Gastroesophageal reflux disease Current Visit: Yes Status: Chronic (8) Hepatitis C carrier Current Visit: Yes Status: Chronic (9) Nicotine dependence Current Visit: Yes Status: Chronic Qualifiers: Nicotine product type: cigarettes Substance use status: in withdrawal Qualified Code(s): F17.213 - Nicotine dependence, cigarettes, with withdrawal Comment: all dependencies acute and chronic use (10) Sedative hypnotic or anxiolytic dependence Current Visit: Yes Status: Acute Cleared for Admission [facility] - Detox or Rehab [facility] Level of Care: Medically Managed Detox Regimen/Protocol: Methadone/Librium [facility] Breath Alcohol Content Breath Alcohol Content: 0 Urine Drug Screen - Results Drug Screen Negative: No Urine Drug Screen Results: THC-Marijuana, INDIGO-Cocaine, OPI-Opiates, MTD- Methadone
[2018-06-05] MEDS ORDERED: ACETAMINOPHEN 325 MG TABLET (FP) PO PRN (21:40)
[2018-06-05] MEDS ORDERED: NICOTINE POLACRILEX 2 MG GUM BUC PRN (21:40)
[2018-06-05] MEDS ORDERED: chlordiazePOXIDE HCL 25 MG CAPSULE PO PRN (21:40)
[2018-06-05] MEDS ORDERED: MAGNESIUM HYDROX 2400MG/30ML ORAL SUSPENSION 30 ML CUP PO PRN (21:40)
[2018-06-05] MEDS ORDERED: LOPERAMIDE HCL 2 MG CAPSULE PO PRN (21:40)
[2018-06-05] MEDS ORDERED: chlordiazePOXIDE HCL 25 MG CAPSULE PO ONE (21:40)
[2018-06-05] MEDS ORDERED: METHADONE HCL 10 MG TABLET (FOR DETOX USE ONLY) PO ONE ×2 (21:40→23:00)
[2018-06-05] MEDS ORDERED: guaiFENesin/D-METHORPHAN HB 10 ML UNIT-DOSE CUPS PO PRN (21:40)
[2018-06-05] MEDS ORDERED: MAGNESIUM CITRATE 300 ML BOTTLE PO PRN (21:40)
[2018-06-05] MEDS ORDERED: IBUPROFEN 400 MG TABLET (FP) PO PRN (21:40)
[2018-06-05] MEDS ORDERED: MENTHOL/PHENOL 1 EACH UD MM PRN (21:40)
[2018-06-05] MEDS ORDERED: MAG HYDROX/AL HYDROX/SIMETH 30 ML UNIT-DOSE CUP PO PRN (21:40)
[2018-06-05] MEDS ORDERED: P-EPHED 60MG/TRIPROLIDI 2.5MG TABLET PO PRN (21:40)
[2018-06-05] MEDS ORDERED: MELATONIN 5 MG TABLETS PO PRN (22:00)
[2018-06-05] MEDS: chlordiazePOXIDE HCL 25 MG CAPSULE PO SCH (23:27)
[2018-06-05] MEDS: THIAMINE HCL 100 MG TABLET (FP) PO SCH (23:28)
[2018-06-06] MEDS: chlordiazePOXIDE HCL 25 MG CAPSULE PO SCH ×4 (05:42→22:25)
[2018-06-06 09:50] LABS: HEMATOCRIT 39.5 % (35.4-49); HEMOGLOBIN 13.3 GM/dL (11.7-16.9); MCH 28.6 pg (25.7-33.7); MCHC 33.6 g/dl (32.0-35.9); MEAN CELL VOLUME 85.1 fl (80-96); MEAN PLT VOLUME 9.4 fl (7.5-11.1); PLATELET COUNT 159 K/MM3 (134-434); RBC 4.64 M/mm3 (4.00-5.60); RDW 15.4 % (11.9-15.9); WHITE BLOOD COUNT 5.9 K/mm3 (4.0-10.0)
[2018-06-06 09:56] LABS: CHLORIDE 107 mmol/L (98-107); POTASSIUM 3.8 mmol/L (3.5-5.1); SODIUM 141 mmol/L (136-145)
[2018-06-06] MEDS ORDERED: METHADONE HCL 10 MG TABLET (FOR DETOX USE ONLY) PO SCH (10:00)
[2018-06-06 10:10] LABS: ALBUMIN 3.2 g/dl (3.4-5.0); ALK PHOS 97 U/L (45-117); ANION GAP 6 (8-16); BILIRUBIN,TOTAL 0.6 mg/dL (0.2-1.0); BLOOD UREA NITROGEN 12 mg/dL (7-18); CALCIUM 8.4 mg/dL (8.5-10.1); CO2 28 mmol/L (21-32); CREATININE 0.7 mg/dL (0.7-1.3); GLUCOSE,RANDOM 91 mg/dL (74-106); SGOT/AST 60 U/L (15-37); SGPT/ALT 55 U/L (12-78); TOT PROT 7.2 g/dl (6.4-8.2)
[2018-06-06] MEDS: NICOTINE 14 MG/24 HOURS TOPICAL PATCH TD SCH (10:31)
[2018-06-06] MEDS: PRENATAL VITAMINS W/ FOLIC ACID TABLET (FP) PO SCH (10:31)
[2018-06-06] MEDS ORDERED: TRIMETHOBENZAMIDE HCL 200MG/2ML INJ IM PRN (12:00)
[2018-06-06] MEDS ORDERED: CYCLOBENZAPRINE HCL 10 MG TABLET (FP) PO PRN (12:01)
--- NOTE | 2018-06-06 14:14 | PN ---
S CIWA - CIWA Score Nausea/Vomitin Muscle Tremors: 3 Anxiety: 4-Mod. Anxious/Guarded Agitation: 0-Normal Activity Paroxysmal Sweats: 3 Orientation: 0-Oriented Tacttile Disturbances: 3-Moderate Itch/Numb/Burn Auditory Disturbances: 0-None Visual Disturbances: 2-Mild Sensitivity Headache: 0-None Present CIWA-Ar Total Score: 18 [facility] COWS - Scale Resting Pulse: 0= [place] 80 or Below Sweatin= Chills/Flushing Restless Observation: 0= Sits Still Pupil Size: 0= Normal to Room Light Bone or Joint Aches: 2= Severe Diffuse Aches Runny Nose/ Eye Tearin= Nasal Congestion GI Upset > 30mins: 2= Nausea/Diarrhea Tremor Observation of Outstretched Hands: 2= Slight Tremor Visible Yawning Observation: 1= 1-2x During Session Anxiety or Irritability: 2=Irritable/Anxious Goose Flesh Skin: 3=Piloerection COWS Score: 14 [facility] Progress Note (SOAP) Subjective: Nausea, Diarrhea, Sweating, Interrupted Sleep, Anxious, Body Aches, Tremors. Objective: PATIENT A & O X 3, OBSERVED AMBULATING ON UNIT. NO ACUTE DISTRESS. 06/06/18 14:12 Vital Signs Temperature 97.2 F L 06/06/18 13:55 Pulse Rate 60 06/06/18 13:55 Respiratory Rate 18 06/06/18 13:55 Blood Pressure 115/70 06/06/18 13:55 O2 Sat by Pulse Oximetry (%) Laboratory Tests 06/06/18 06/06/18 06/06/18 07:00 07:00 07:00 WBC 5.9 RBC 4.64 Hgb 13.3 Hct 39.5 MCV 85.1 MCH 28.6 MCHC 33.6 RDW 15.4 Plt Count 159 MPV 9.4 Sodium 141 Potassium 3.8 Chloride 107 Carbon Dioxide 28 Anion Gap 6 L BUN 12 Creatinine 0.7 Creat Clearance w eGFR > 60 Random Glucose 91 Calcium 8.4 L Total Bilirubin 0.6 AST 60 H D ALT 55 D Alkaline Phosphatase 97 Total Protein 7.2 Albumin 3.2 L RPR Titer Nonreactive HIV 1&2 Antibody Screen HIV P24 Antigen 06/06/18 07:00 WBC RBC Hgb Hct MCV MCH MCHC RDW Plt Count MPV Sodium Potassium Chloride Carbon Dioxide Anion Gap BUN Creatinine Creat Clearance w eGFR Random Glucose Calcium Total Bilirubin AST ALT Alkaline Phosphatase Total Protein Albumin RPR Titer HIV 1&2 Antibody Screen Negative HIV P24 Antigen Negative LABS NOTED. UA RESULTS PENDING. Assessment: 06/06/18 14:13 WITHDRAWAL SYMPTOMS. Plan: CONTINUE DETOX. INCREASE DAILY PO FLUID INTAKE. PRN IMMODIUM FOR DIARRHEA. PRN FLEXERIL FOR BODY ACHES/MUSCLE SPASMS. PRN TIGAN IM FOR NAUSEA/ CLONIDINE, 0.1 MG PO X 1 FOR SEVERE WITHDRAWAL SYMPTOMS.
[2018-06-06] MEDS ORDERED: cloNIDine HCL 0.1 MG TABLET PO ONE (14:30)
--- NOTE | 2018-06-06 15:41 | CONSULT ---
[facility] Psychiatric Consult - Data Date of interview: 06/06/18 Admission source: [facility] Identifying data: Patient is a 38 year old single male, father of two, unemployed, and currently homeless. This is one of multiple admissions for patient. Pt. admitted to for alcohol, marijuana, cocaine and opiate dependence. Substance Abuse History: moking Cessation. Smoking history: Current every day smoker. Have you smoked in the past 12 months: Yes. Aproximately how many cigarettes per day: 20. Cigars Per Day: 0. Hx Chewing Tobacco Use: No. Initiated information on smoking cessation: Yes. 'Breaking Loose' booklet given : 06/05/18. - Substance & Tx. History. Hx Alcohol Use: Yes. Hx Substance Use : Yes. Substance Use Type: Alcohol, Cocaine, Heroin, Tranquilizers. Hx Substance Use Treatment: Yes (Last detox [facility] 08/22/17 -08/25/17). - Substances Abused. Heroin. Route: Injection. Frequency: Daily. Amount used: 15 - 18 bags. Age of first use: 14. Date of Last Use: 06/05/18. Alcohol. Route: Oral. Frequency: Daily. Amount used: 6 x 18oz beer + 1 pint vodka. Age of first use: 11. Date of Last Use: 06/05/18. Alprazolam (Xanax). Route: Oral. Frequency: Daily. Amount used: 2 x 2 mg. Age of first use: 31. Date of Last Use: 06/05/18. Cocaine. Route: Injection. Frequency: Daily. Amount used: $60. Age of first use: 14. Date of Last Use: 06/04/18 Medical History: Hep C Psychiatric History: Patient denies h/o psychiatric hospitalization, outpatient care, and suicide attempt. Pt. reports poor sleep. Physical/Sexual Abuse/Trauma History: Denies. Mental Status Exam - Mental Status Exam Alert and Oriented to: Time, Place Cognitive Function: Good Patient Appearance: Unkempt Mood: Withdrawn, Euthymic Affect: Mood Congruent Patient Behavior: Fatigued, Guarded, Cooperative Speech Pattern: Appropriate Voice Loudness: Moderately Soft/Quiet Thought Process: Goal Oriented Thought Disorder: Not Present Hallucinations: Denies Suicidal Ideation: Denies Homicidal Ideation: Denies Insight/Judgement: Poor Sleep: Poorly Appetite: Fair Muscle strength/Tone: Normal Gait/Station: Other (Did not observe patient's gait.) Psychiatric Findings - Problem List ([place] 1, 2,3) (1) Substance-induced sleep disorder Current Visit: Yes Status: Acute (2) Alcohol dependence with uncomplicated withdrawal Current Visit: Yes Status: Acute (3) Cannabis dependence, uncomplicated Current Visit: Yes Status: Acute (4) Cocaine dependence, uncomplicated Current Visit: Yes Status: Acute (5) Sedative hypnotic or anxiolytic dependence Current Visit: Yes Status: Acute (6) Hepatitis C carrier Current Visit: Yes Status: Chronic (7) Gastroesophageal reflux disease Current Visit: Yes Status: Chronic - Initial Treatment Plan Initial Treatment Plan: Psychoeducation provided. Detoxification in progress. Ambien 10mg qhs prn ordered for insomnia. Benefits and side effects discussed. Pt. made aware of the risk of parasomnia. Verbal consent given.
[2018-06-06] MEDS ORDERED: ZOLPIDEM TARTRATE 10 MG TABLET (PARK CARE ONLY) PO PRN (22:00)
[2018-06-06] MEDS: THIAMINE HCL 100 MG TABLET (FP) PO SCH (22:24)
[2018-06-07] MEDS: chlordiazePOXIDE HCL 25 MG CAPSULE PO SCH ×2 (06:29→10:14)
[2018-06-07] MEDS ORDERED: METHADONE HCL 5 MG TABLET (FOR DETOX USE ONLY) PO SCH (10:00)
[2018-06-07] MEDS: PRENATAL VITAMINS W/ FOLIC ACID TABLET (FP) PO SCH (10:14)
[2018-06-07] MEDS: NICOTINE 14 MG/24 HOURS TOPICAL PATCH TD SCH (10:14)
[2018-06-07 10:20] VITALS: BP 135/84; PULSE 55; TEMP 97.1
--- NOTE | 2018-06-07 13:24 | PN ---
S CIWA - CIWA Score Nausea/Vomitin Muscle Tremors: 2 Anxiety: 4-Mod. Anxious/Guarded Agitation: 3 Paroxysmal Sweats: 3 Orientation: 0-Oriented Tacttile Disturbances: 2-Mild Itch/Numbness/Burn Auditory Disturbances: 0-None Visual Disturbances: 0-None Headache: 0-None Present CIWA-Ar Total Score: 16 BHS COWS - Scale Resting Pulse: 0= CA 80 or Below Sweatin= Chills/Flushing Restless Observation: 0= Sits Still Pupil Size: 0= Normal to Room Light Bone or Joint Aches: 2= Severe Diffuse Aches Runny Nose/ Eye Tearin= Nasal Congestion GI Upset > 30mins: 1= Stomach Cramp Tremor Observation of Outstretched Hands: 2= Slight Tremor Visible Yawning Observation: 1= 1-2x During Session Anxiety or Irritability: 2=Irritable/Anxious Goose Flesh Skin: 3=Piloerection COWS Score: 13 BHS Progress Note (SOAP) Subjective: Sweating, Tremors, Anxious, Fatigue, Body Aches. Objective: PATIENT A & O X 3, OBSERVED AMBULATING ON UNIT. NO ACUTE DISTRESS. 06/07/18 13:22 Vital Signs Temperature 97.1 F L 06/07/18 10:19 Pulse Rate 55 L 06/07/18 10:19 Respiratory Rate 18 06/07/18 10:19 Blood Pressure 135/84 06/07/18 10:19 O2 Sat by Pulse Oximetry (%) Laboratory Tests 06/06/18 06/06/18 06/06/18 07:00 07:00 07:00 WBC 5.9 RBC 4.64 Hgb 13.3 Hct 39.5 MCV 85.1 MCH 28.6 MCHC 33.6 RDW 15.4 Plt Count 159 MPV 9.4 Sodium 141 Potassium 3.8 Chloride 107 Carbon Dioxide 28 Anion Gap 6 L BUN 12 Creatinine 0.7 Creat Clearance w eGFR > 60 Random Glucose 91 Calcium 8.4 L Total Bilirubin 0.6 AST 60 H D ALT 55 D Alkaline Phosphatase 97 Total Protein 7.2 Albumin 3.2 L RPR Titer Nonreactive HIV 1&2 Antibody Screen HIV P24 Antigen 06/06/18 07:00 WBC RBC Hgb Hct MCV MCH MCHC RDW Plt Count MPV Sodium Potassium Chloride Carbon Dioxide Anion Gap BUN Creatinine Creat Clearance w eGFR Random Glucose Calcium Total Bilirubin AST ALT Alkaline Phosphatase Total Protein Albumin RPR Titer HIV 1&2 Antibody Screen Negative HIV P24 Antigen Negative LABS NOTED. Assessment: 06/07/18 13:22 WITHDRAWAL SYMPTOMS. Plan: CONTINUE DETOC. INCREASE DAILY PO FLUID INTAKE. ENCOURAGE AMBULATION.
--- NOTE | 2018-06-07 13:26 | DS ---
[facility] Detox Discharge Summary Admission Date: 06/05/18 Discharge Date: 06/07/18 - History Present History: Alcohol Dependence, Cannabis Dependence, Cocaine Dependence, Opioid Dependence, Sedative Dependence Additional Comments: PATIENT DOES NOT WISH TO STAY TO COMPLETE DETOX REGIMEN. RISKS OF LEAVING DETOX UNIT AGAINST MEDICAL ADVICE AND PRIOR TO COMPLETION OF DETOX REGIMEN EXPLAINED TO PATIENT. PATIENT ADVISED TO GO IMMEDIATELY TO NEAREST ER SHOULD ANY INTOLERABLE DETOX SYMPTOMS DEVELOP AT ANY TIME. PATIENT LEFT DETOX UNIT IN STABLE MEDICAL CONDITION. Pertinent Past History: Depression, Insomnia, Hep C, G.E.R.D. - Physical Exam Results Vital Signs: Vital Signs Temperature 97.1 F L 06/07/18 10:19 Pulse Rate 55 L 06/07/18 10:19 Respiratory Rate 18 06/07/18 10:19 Blood Pressure 135/84 06/07/18 10:19 O2 Sat by Pulse Oximetry (%) Pertinent Admission Physical Exam Findings: WITHDRAWAL SYMPTOMS. Laboratory Tests 06/06/18 06/06/18 06/06/18 07:00 07:00 07:00 WBC 5.9 RBC 4.64 Hgb 13.3 Hct 39.5 MCV 85.1 MCH 28.6 MCHC 33.6 RDW 15.4 Plt Count 159 MPV 9.4 Sodium 141 Potassium 3.8 Chloride 107 Carbon Dioxide 28 Anion Gap 6 L BUN 12 Creatinine 0.7 Creat Clearance w eGFR > 60 Random Glucose 91 Calcium 8.4 L Total Bilirubin 0.6 AST 60 H D ALT 55 D Alkaline Phosphatase 97 Total Protein 7.2 Albumin 3.2 L RPR Titer Nonreactive HIV 1&2 Antibody Screen HIV P24 Antigen 06/06/18 07:00 WBC RBC Hgb Hct MCV MCH MCHC RDW Plt Count MPV Sodium Potassium Chloride Carbon Dioxide Anion Gap BUN Creatinine Creat Clearance w eGFR Random Glucose Calcium Total Bilirubin AST ALT Alkaline Phosphatase Total Protein Albumin RPR Titer HIV 1&2 Antibody Screen Negative HIV P24 Antigen Negative LABS NOTED. - Treatment Hospital Course: Detoxed Safely - Medication Discharge Medications: Ambulatory Orders Pantoprazole Sodium [Protonix -] 40 mg PO DAILY 01/28/17 Quetiapine Fumarate [Seroquel -] 50 mg PO HS #30 tablet 01/28/17 - Diagnosis (1) Alcohol dependence with uncomplicated withdrawal Current Visit: Yes Status: Acute (2) Cannabis dependence, uncomplicated Current Visit: Yes Status: Acute (3) Cocaine dependence, uncomplicated Current Visit: Yes Status: Acute (4) IV drug user Current Visit: Yes Status: Acute (5) Sedative hypnotic or anxiolytic dependence Current Visit: Yes Status: Acute (6) Gastroesophageal reflux disease Current Visit: Yes Status: Chronic (7) Nicotine dependence Current Visit: Yes Status: Chronic Qualifiers: Nicotine product type: cigarettes Substance use status: in withdrawal Qualified Code(s): F17.213 - Nicotine dependence, cigarettes, with withdrawal (8) Opioid dependence with withdrawal Current Visit: Yes Status: Acute (9) Hepatitis C carrier Current Visit: Yes Status: Chronic (10) Weight decreased Current Visit: Yes Status: Acute (11) Substance-induced sleep disorder Current Visit: Yes Status: Acute - AMA Did Patient Leave Against Medical Advice: Yes (PATIENT DID NOT WISH TO REMAIN TO COMPLETE DETOX REGIMEN.)
[2018-06-07 14:16] LABS: URINE APPEARANCE CLEAR; URINE BILIRUBIN NEGATIVE (<2.0 mg/dL); URINE COLOR YELLOW; URINE GLUCOSE (UA) NEGATIVE (NEGATIVE); URINE KETONE NEGATIVE (NEGATIVE); URINE LEUK ESTERASE NEGATIVE (NEGATIVE); URINE NITRITE NEGATIVE (NEGATIVE); URINE PROTEIN NEGATIVE (NEGATIVE); URINE UROBILINOGEN 4.0 E.U/dl mg/dL (0.2-1.0)
--- NOTE | 2018-06-07 14:27 | EKG ---
Test Reason : Blood Pressure : / mmHG Vent. Rate : 062 BPM Atrial Rate : 062 BPM P-R Int : 118 ms QRS Dur : 082 ms QT Int : 418 ms P-R-T Axes : 072 -15 037 degrees QTc Int : 424 ms NORMAL SINUS RHYTHM NORMAL ECG WHEN COMPARED WITH ECG OF 22-AUG-2017 02:55, NO SIGNIFICANT CHANGE WAS FOUND Confirmed by ISAÍAS PETERS MD ([id number]) on 06/07/2018 2:27:27 PM Referred By: Confirmed By:ISAÍAS PETERS MD
[2018-06-07] MEDS ORDERED: chlordiazePOXIDE 5 MG CAPSULE PO SCH (23:00)
[2018-06-08] MEDS ORDERED: chlordiazePOXIDE HCL 10 MG CAPSULE PO SCH (23:00)
[2018-06-09] MEDS ORDERED: METHADONE HCL 10 MG TABLET (FOR DETOX USE ONLY) PO SCH (10:00)
[2018-06-10] MEDS ORDERED: METHADONE HCL 5 MG TABLET (FOR DETOX USE ONLY) PO SCH (06:00)
== END 2018-06-07 14:00 | disposition left against medical advice (07) | DRG 770 ==
LOC: YASAS 17:23 → Y3N 21:56
PROVIDERS: ADMIT Surgery; ATTEND Surgery
PROC: HZ2ZZZZ Detoxification Services for Substance Abuse Treatment (ICD-10-PCS; principal; 2018-06-05)
DX: F11.23 Opioid dependence with withdrawal (principal); F13.230 Sedative, hypnotic or anxiolytic dependence with withdrawal, uncomplicated; F10.230 Alcohol dependence with withdrawal, uncomplicated; F14.20 Cocaine dependence, uncomplicated; F12.20 Cannabis dependence, uncomplicated; F17.210 Nicotine dependence, cigarettes, uncomplicated; F19.282 Other psychoactive substance dependence with psychoactive substance-induced sleep disorder; B18.2 Chronic viral hepatitis C; K21.9 Gastro-esophageal reflux disease without esophagitis; R63.4 Abnormal weight loss; Z68.21 Body mass index [BMI] 21.0-21.9, adult; Z59.0 Homelessness
CPT/HCPCS: 36415; 80053; 81003; 85027; 86593; 87389; 93005; 93010; J0735

== ENCOUNTER 2022-11-16 17:37 | Inpatient (IN) | payer OTHER ==
[2022-11-16 18:23] VITALS: BMI 21.7
[2022-11-16] MEDS ORDERED: ONDANSETRON *ODT* 4 MG TABLET SL PRN (19:23)
[2022-11-16] MEDS ORDERED: POLYETHYLENE GLYCOL (HEALTHYLAX) 3350 17 GM PACKET PO PRN (19:23)
[2022-11-16] MEDS ORDERED: NICOTINE POLACRILEX 4 MG GUM BUC PRN (19:23)
[2022-11-16] MEDS ORDERED: BENZOCAINE/MENTHOL (CHLORASEPTIC ) LOZENGE MM PRN (19:23)
[2022-11-16] MEDS ORDERED: guaiFENesin 200 MG/10 ML 10 ML UNIT-DOSE CUPS PO PRN (19:23)
[2022-11-16] MEDS ORDERED: NALOXONE HCL (KLOXXADO) 8 MG SPRAY NS PRN (19:23)
[2022-11-16] MEDS ORDERED: LOPERAMIDE HCL 2 MG CAPSULE PO PRN (19:23)
[2022-11-16] MEDS ORDERED: ACETAMINOPHEN 325 MG TABLET (FP) PO PRN ×2 (19:23)
[2022-11-16] MEDS ORDERED: MAGNESIUM HYDROX 2400MG/30ML ORAL SUSPENSION 30 ML CUP PO PRN (19:23)
[2022-11-16] MEDS ORDERED: MAG HYDROX/AL HYDROX/SIMETH 30 ML UNIT-DOSE CUP PO PRN (19:23)
[2022-11-16] MEDS ORDERED: P-EPHED 60MG/TRIPROLIDI 2.5MG TABLET PO PRN (19:23)
[2022-11-16] MEDS ORDERED: BISMUTH SUBSALICYLATE 524 MG/30 ML PO PRN (19:23)
[2022-11-16] MEDS ORDERED: DICYCLOMINE HCL 10 MG CAPSULE PO PRN (19:23)
[2022-11-16] MEDS ORDERED: IBUPROFEN 600 MG TABLET (FP) PO PRN (19:23)
[2022-11-16] MEDS ORDERED: cloNIDine HCL 0.1 MG TABLET PO PRN (19:25)
[2022-11-16] MEDS ORDERED: chlordiazePOXIDE HCL 25 MG CAPSULE PO PRN (19:25)
[2022-11-16] MEDS ORDERED: SULFAMETHOXAZOLE/TRIMETHOPRIM 800MG/160MG D.S. TABLET PO SCH (20:30)
[2022-11-16] MEDS ORDERED: chlordiazePOXIDE HCL 25 MG CAPSULE PO ONE (20:30)
[2022-11-16] MEDS: SULFAMETHOXAZOLE/TRIMETHOPRIM 800MG/160MG D.S. TABLET PO SCH (21:06)
[2022-11-16] MEDS ORDERED: methaDONE HCL 10 MG TABLET (FOR DETOX USE ONLY) PO ONE (21:10)
[2022-11-16] MEDS: chlordiazePOXIDE HCL 25 MG CAPSULE PO SCH (22:17)
[2022-11-16] MEDS: THIAMINE HCL 100 MG TABLET (FP) PO SCH (22:18)
[2022-11-16] MEDS: MELATONIN 5 MG TABLETS PO SCH (22:20)
[2022-11-17] MEDS: chlordiazePOXIDE HCL 25 MG CAPSULE PO SCH ×4 (05:59→22:34)
[2022-11-17] MEDS: SULFAMETHOXAZOLE/TRIMETHOPRIM 800MG/160MG D.S. TABLET PO SCH ×2 (10:22→22:34)
[2022-11-17] MEDS: hydrOXYzine PAMOATE 25 MG CAPSULE (FP) PO PRN (10:22)
[2022-11-17] MEDS: PRENATAL VITAMINS W/ FOLIC ACID TABLET (FP) PO SCH (10:22)
[2022-11-17] MEDS: IBUPROFEN 400 MG TABLET (FP) PO PRN (10:22)
[2022-11-17] MEDS: NICOTINE 21 MG/24 HOURS TOPICAL PATCH TD SCH ×2 (10:25→10:26)
[2022-11-17] MEDS: THIAMINE HCL 100 MG TABLET (FP) PO SCH (22:37)
[2022-11-17] MEDS: MELATONIN 5 MG TABLETS PO SCH (23:10)
[2022-11-18] MEDS: chlordiazePOXIDE HCL 25 MG CAPSULE PO SCH ×4 (05:20→22:28)
[2022-11-18] MEDS ORDERED: methaDONE HCL 10 MG TABLET (FOR DETOX USE ONLY) PO ONE (10:00)
[2022-11-18] MEDS ORDERED: PANTOPRAZOLE 40 MG TABLET PO SCH (10:00)
[2022-11-18] MEDS: PRENATAL VITAMINS W/ FOLIC ACID TABLET (FP) PO SCH (10:23)
[2022-11-18] MEDS: IBUPROFEN 400 MG TABLET (FP) PO PRN (10:23)
[2022-11-18] MEDS: SULFAMETHOXAZOLE/TRIMETHOPRIM 800MG/160MG D.S. TABLET PO SCH ×2 (10:24→22:28)
[2022-11-18] MEDS: hydrOXYzine PAMOATE 25 MG CAPSULE (FP) PO PRN (10:25)
[2022-11-18] MEDS: NICOTINE 21 MG/24 HOURS TOPICAL PATCH TD SCH (12:03)
[2022-11-18] MEDS: MELATONIN 5 MG TABLETS PO SCH (22:28)
[2022-11-18] MEDS: THIAMINE HCL 100 MG TABLET (FP) PO SCH (22:28)
[2022-11-19] MEDS ORDERED: chlordiazePOXIDE HCL 10 MG CAPSULE PO PRN
[2022-11-19] MEDS ORDERED: chlordiazePOXIDE HCL 10 MG CAPSULE PO SCH (05:00)
[2022-11-19 09:17] VITALS: BP 128/80; PULSE 90; RESP 18; TEMP 97.2
[2022-11-20] MEDS ORDERED: chlordiazePOXIDE HCL 10 MG CAPSULE PO SCH (05:00)
[2022-11-20] MEDS ORDERED: methaDONE HCL 10 MG TABLET (FOR DETOX USE ONLY) PO ONE (10:00)
[2022-11-21] MEDS ORDERED: chlordiazePOXIDE HCL 10 MG CAPSULE PO ONE (05:00)
== END 2022-11-19 10:06 | disposition left against medical advice (07) | DRG 770 ==
LOC: YASAS 17:37 → Y6N 20:14
PROVIDERS: ADMIT Allergy & Immunology; ATTEND Surgery
PROC: HZ2ZZZZ Detoxification Services for Substance Abuse Treatment (ICD-10-PCS; principal; 2022-11-16)
DX: F11.23 Opioid dependence with withdrawal (principal); F10.230 Alcohol dependence with withdrawal, uncomplicated; F14.20 Cocaine dependence, uncomplicated; F12.20 Cannabis dependence, uncomplicated; F17.210 Nicotine dependence, cigarettes, uncomplicated; R63.4 Abnormal weight loss; Z68.21 Body mass index [BMI] 21.0-21.9, adult; Z86.19 Personal history of other infectious and parasitic diseases; Z59.02 Unsheltered homelessness; Z88.0 Allergy status to penicillin; Z91.013 Allergy to seafood
CPT/HCPCS: 87811; C9803-CS; U0003; U0005

== ENCOUNTER 2023-02-09 15:54 | Inpatient (IN) | payer OTHER ==
[2023-02-09 16:36] VITALS: BMI 20.7
[2023-02-09] MEDS ORDERED: guaiFENesin 600 MG TABLET.ER (FP) PO PRN (18:12)
[2023-02-09] MEDS ORDERED: MELATONIN 5 MG TABLETS PO PRN (18:12)
[2023-02-09] MEDS ORDERED: P-EPHED 60MG/TRIPROLIDI 2.5MG TABLET PO PRN (18:12)
[2023-02-09] MEDS ORDERED: NALOXONE HCL 0.4 MG/ML VIAL IM PRN (18:12)
[2023-02-09] MEDS ORDERED: MAGNESIUM HYDROX 2400MG/30ML ORAL SUSPENSION 30 ML CUP PO PRN (18:12)
[2023-02-09] MEDS ORDERED: IBUPROFEN 400 MG TABLET (FP) PO PRN (18:12)
[2023-02-09] MEDS ORDERED: POLYETHYLENE GLYCOL (HEALTHYLAX) 3350 17 GM PACKET PO PRN (18:12)
[2023-02-09] MEDS ORDERED: ACETAMINOPHEN 325 MG TABLET (FP) PO PRN (18:12)
[2023-02-09] MEDS ORDERED: BENZOCAINE/MENTHOL (CHLORASEPTIC ) LOZENGE MM PRN (18:12)
[2023-02-09] MEDS ORDERED: ONDANSETRON *ODT* 4 MG TABLET SL PRN (18:12)
[2023-02-09] MEDS ORDERED: LOPERAMIDE HCL 2 MG CAPSULE PO PRN (18:12)
[2023-02-09] MEDS ORDERED: hydrOXYzine PAMOATE 25 MG CAPSULE (FP) PO PRN (18:12)
[2023-02-09] MEDS ORDERED: NICOTINE 10 MG CARTRIDGE (INHALER) IH PRN (18:12)
[2023-02-09] MEDS ORDERED: DICYCLOMINE HCL 10 MG CAPSULE PO PRN (18:12)
[2023-02-09] MEDS ORDERED: BENZONATATE 200 MG CAPSULE PO PRN (18:12)
[2023-02-09] MEDS ORDERED: BISMUTH SUBSALICYLATE 524 MG/30 ML PO PRN (18:12)
[2023-02-09] MEDS ORDERED: IBUPROFEN 600 MG TABLET (FP) PO PRN (18:12)
[2023-02-09] MEDS ORDERED: MAG HYDROX/AL HYDROX/SIMETH 30 ML UNIT-DOSE CUP PO PRN (18:12)
[2023-02-09] MEDS ORDERED: NALOXONE HCL (KLOXXADO) 8 MG SPRAY NS PRN (18:12)
[2023-02-09] MEDS ORDERED: cloNIDine HCL 0.1 MG TABLET PO PRN (18:15)
[2023-02-09] MEDS ORDERED: methaDONE HCL 10 MG TABLET (FOR DETOX USE ONLY) PO ONE (18:15)
[2023-02-09] MEDS ORDERED: QUEtiapine FUMARATE 50 MG TABLET PO ONE (22:00)
[2023-02-09] MEDS ORDERED: ALBUTEROL SO4 HFA INHALER IH PRN (22:12)
[2023-02-09] MEDS ORDERED: methaDONE HCL 10 MG TABLET (FOR DETOX USE ONLY) ONE (22:25)
[2023-02-09] MEDS: PANTOPRAZOLE 40 MG TABLET PO SCH (22:33)
[2023-02-10] MEDS: BACITRACIN 0.9 GM PACKET TP SCH ×4 (00:32→22:16)
[2023-02-10] MEDS: SULFAMETHOXAZOLE/TRIMETHOPRIM 800MG/160MG D.S. TABLET PO SCH ×4 (00:33→22:17)
[2023-02-10] MEDS: THIAMINE HCL 100 MG TABLET (FP) PO SCH ×2 (00:34→22:16)
[2023-02-10] MEDS ORDERED: PRENATAL VITAMINS W/ FOLIC ACID TABLET (FP) PO SCH (10:00)
[2023-02-10 11:06] LABS: HEMATOCRIT 33.9 % (35.4-49); HEMOGLOBIN 11.7 GM/dL (11.7-16.9); MCH 29.2 pg (25.7-33.7); MCHC 34.7 g/dl (32.0-35.9); MEAN CELL VOLUME 84.2 fl (80-96); MEAN PLT VOLUME 9.8 fl (7.5-11.1); PLATELET COUNT 115 10^3/uL (134-434); RBC 4.02 M/mm3 (4.00-5.60); RDW 13.9 % (11.9-15.9); WHITE BLOOD COUNT 3.7 K/mm3 (4.0-10.0)
[2023-02-10 11:10] LABS: CALCIUM 8.5 mg/dL (8.5-10.1)
[2023-02-10 11:12] LABS: ALBUMIN 2.8 g/dl (3.4-5.0)
[2023-02-10 11:15] LABS: CREATININE 0.6 mg/dL (0.55-1.3)
[2023-02-10 11:17] LABS: BILIRUBIN,TOTAL 0.6 mg/dL (0.2-1)
[2023-02-10] MEDS: PANTOPRAZOLE 40 MG TABLET PO SCH ×2 (11:48→12:19)
[2023-02-10] MEDS: PRENATAL VITAMINS W/ FOLIC ACID TABLET (FP) PO SCH (12:19)
[2023-02-10] MEDS: diazePAM 5 MG TABLET PO PRN ×2 (12:21→22:17)
[2023-02-10] MEDS: QUEtiapine FUMARATE 50 MG TABLET PO SCH (22:16)
[2023-02-11] MEDS ORDERED: methaDONE HCL 10 MG TABLET (FOR DETOX USE ONLY) PO ONE (10:00)
[2023-02-11] MEDS: BACITRACIN 0.9 GM PACKET TP SCH ×2 (10:27→22:46)
[2023-02-11] MEDS: SULFAMETHOXAZOLE/TRIMETHOPRIM 800MG/160MG D.S. TABLET PO SCH ×2 (10:27→22:46)
[2023-02-11] MEDS: PRENATAL VITAMINS W/ FOLIC ACID TABLET (FP) PO SCH (10:28)
[2023-02-11] MEDS: PANTOPRAZOLE 40 MG TABLET PO SCH (10:28)
[2023-02-11] MEDS: THIAMINE HCL 100 MG TABLET (FP) PO SCH (22:46)
[2023-02-11] MEDS: QUEtiapine FUMARATE 50 MG TABLET PO SCH (22:46)
[2023-02-11] MEDS: diazePAM 5 MG TABLET PO PRN (22:48)
[2023-02-12 09:44] VITALS: BP 131/83; PULSE 83; RESP 16; TEMP 97.5
[2023-02-12] MEDS: SULFAMETHOXAZOLE/TRIMETHOPRIM 800MG/160MG D.S. TABLET PO SCH (09:58)
[2023-02-12] MEDS: PRENATAL VITAMINS W/ FOLIC ACID TABLET (FP) PO SCH (09:58)
[2023-02-12] MEDS: PANTOPRAZOLE 40 MG TABLET PO SCH (09:58)
[2023-02-12] MEDS: BACITRACIN 0.9 GM PACKET TP SCH (09:59)
[2023-02-13] MEDS ORDERED: methaDONE HCL 10 MG TABLET (FOR DETOX USE ONLY) PO ONE (10:00)
== END 2023-02-12 11:58 | disposition left against medical advice (07) | DRG 770 ==
LOC: YASAS 15:54 → UNDOADMIN 19:49 → Y6N 19:49 → Y3N 02-10 10:41
PROVIDERS: ADMIT Allergy & Immunology; ATTEND Surgery
PROC: HZ2ZZZZ Detoxification Services for Substance Abuse Treatment (ICD-10-PCS; principal; 2023-02-10)
DX: F11.23 Opioid dependence with withdrawal (principal); F10.230 Alcohol dependence with withdrawal, uncomplicated; F14.20 Cocaine dependence, uncomplicated; F12.20 Cannabis dependence, uncomplicated; F17.210 Nicotine dependence, cigarettes, uncomplicated; F19.24 Other psychoactive substance dependence with psychoactive substance-induced mood disorder; K21.9 Gastro-esophageal reflux disease without esophagitis; K74.60 Unspecified cirrhosis of liver; R79.89 Other specified abnormal findings of blood chemistry; Z86.19 Personal history of other infectious and parasitic diseases; Z88.0 Allergy status to penicillin; Z91.013 Allergy to seafood
CPT/HCPCS: 36415; 80053; 85027; 86780; 93005; 93010; C9803-CS; U0003; U0005

== ENCOUNTER 2023-05-30 10:34 | Inpatient (IN) | payer OTHER ==
[2023-05-30 11:11] VITALS: BMI 23.5
[2023-05-30] MEDS ORDERED: BENZOCAINE/MENTHOL (CHLORASEPTIC ) LOZENGE MM PRN (12:04)
[2023-05-30] MEDS ORDERED: IBUPROFEN 400 MG TABLET (FP) PO PRN (12:04)
[2023-05-30] MEDS ORDERED: IBUPROFEN 600 MG TABLET (FP) PO PRN (12:04)
[2023-05-30] MEDS ORDERED: BENZONATATE 200 MG CAPSULE PO PRN (12:04)
[2023-05-30] MEDS ORDERED: cloNIDine HCL 0.1 MG TABLET PO PRN (12:04)
[2023-05-30] MEDS ORDERED: NALOXONE HCL (KLOXXADO) 8 MG SPRAY NS PRN (12:04)
[2023-05-30] MEDS ORDERED: methaDONE HCL 10 MG TABLET (FOR DETOX USE ONLY) PO ONE (12:04)
[2023-05-30] MEDS ORDERED: ACETAMINOPHEN 325 MG TABLET (FP) PO PRN (12:04)
[2023-05-30] MEDS ORDERED: DICYCLOMINE HCL 10 MG CAPSULE PO PRN (12:04)
[2023-05-30] MEDS ORDERED: MAG HYDROX/AL HYDROX/SIMETH 30 ML UNIT-DOSE CUP PO PRN (12:04)
[2023-05-30] MEDS ORDERED: NALOXONE HCL 0.4 MG/ML VIAL IM PRN (12:04)
[2023-05-30] MEDS ORDERED: MAGNESIUM HYDROX 2400MG/30ML ORAL SUSPENSION 30 ML CUP PO PRN (12:04)
[2023-05-30] MEDS ORDERED: NICOTINE 10 MG CARTRIDGE (INHALER) IH PRN (12:04)
[2023-05-30] MEDS ORDERED: guaiFENesin 600 MG TABLET.ER (FP) PO PRN (12:04)
[2023-05-30] MEDS ORDERED: LOPERAMIDE HCL 2 MG CAPSULE PO PRN (12:04)
[2023-05-30] MEDS ORDERED: POLYETHYLENE GLYCOL (HEALTHYLAX) 3350 17 GM PACKET PO PRN (12:04)
[2023-05-30] MEDS ORDERED: BISMUTH SUBSALICYLATE 524 MG/30 ML PO PRN (12:04)
[2023-05-30] MEDS ORDERED: methaDONE HCL 10 MG TABLET (FOR DETOX USE ONLY) ONE (13:01)
[2023-05-30] MEDS: PRENATAL VITAMINS W/ FOLIC ACID TABLET (FP) PO SCH (13:10)
[2023-05-30] MEDS: NICOTINE 14 MG/24 HOURS TOPICAL PATCH TD SCH (13:10)
[2023-05-30] MEDS: METHOCARBAMOL 500 MG TABLET PO PRN (22:33)
[2023-05-30] MEDS: MELATONIN 5 MG TABLETS PO SCH (22:33)
[2023-05-30] MEDS: THIAMINE HCL 100 MG TABLET (FP) PO SCH (22:33)
[2023-05-30] MEDS: hydrOXYzine PAMOATE 25 MG CAPSULE (FP) PO PRN (22:33)
[2023-05-31] MEDS: ONDANSETRON *ODT* 4 MG TABLET SL PRN (09:04)
[2023-05-31] MEDS: NICOTINE 14 MG/24 HOURS TOPICAL PATCH TD SCH (10:18)
[2023-05-31] MEDS: PANTOPRAZOLE 40 MG TABLET PO SCH (10:18)
[2023-05-31] MEDS: PRENATAL VITAMINS W/ FOLIC ACID TABLET (FP) PO SCH (10:18)
[2023-05-31 11:12] LABS: HEMATOCRIT 40.2 % (35.4-49); HEMOGLOBIN 13.8 GM/dL (11.7-16.9); MCH 28.1 pg (25.7-33.7); MCHC 34.4 g/dl (32.0-35.9); MEAN CELL VOLUME 81.8 fl (80-96); MEAN PLT VOLUME 10.4 fl (7.5-11.1); PLATELET COUNT 154 10^3/uL (134-434); RBC 4.91 M/mm3 (4.00-5.60); RDW 15.7 % (11.9-15.9); WHITE BLOOD COUNT 10.6 K/mm3 (4.0-10.0)
[2023-05-31 11:50] LABS: CHLORIDE 90 mmol/L (98-107); POTASSIUM 4.4 mmol/L (3.5-5.1); SODIUM 131 mmol/L (136-145)
[2023-05-31 11:55] LABS: ANION GAP 22 MMOL/L (8-16); CALCIUM 9.9 mg/dL (8.5-10.1); CO2 19 mmol/L (21-32)
[2023-05-31 11:56] LABS: ALBUMIN 3.5 g/dl (3.4-5.0); BLOOD UREA NITROGEN 16.4 mg/dL (7-18)
[2023-05-31 11:59] LABS: CREATININE 0.9 mg/dL (0.55-1.3); SGOT/AST 45 U/L (15-37); SGPT/ALT 58 U/L (13-61)
[2023-05-31 12:00] LABS: BILIRUBIN,TOTAL 1.4 mg/dL (0.2-1); TOT PROT 8.5 g/dl (6.4-8.2)
[2023-05-31 12:01] LABS: ALK PHOS 112 U/L (45-117)
[2023-05-31 12:12] LABS: GLUCOSE,RANDOM 498 mg/dL (74-106)
[2023-05-31] MEDS ORDERED: INSULIN (NOVOLOG) ASPART 100 UNITS/ML 10ML VIAL SQ ONE (12:37)
[2023-05-31] MEDS ORDERED: INSULIN SLIDING SCALE (NOVOLOG) 1 VIAL SQ ONE ×2 (13:32→16:40)
[2023-05-31] MEDS: INSULIN SLIDING SCALE (NOVOLOG) 1 VIAL SQ SCH ×2 (16:45→21:40)
[2023-05-31] MEDS: hydrOXYzine PAMOATE 25 MG CAPSULE (FP) PO PRN (21:40)
[2023-05-31] MEDS: MELATONIN 5 MG TABLETS PO SCH (21:40)
[2023-05-31] MEDS: THIAMINE HCL 100 MG TABLET (FP) PO SCH (21:40)
[2023-05-31] MEDS: METHOCARBAMOL 500 MG TABLET PO PRN (21:41)
[2023-05-31] MEDS: QUEtiapine FUMARATE 50 MG TABLET PO SCH (21:41)
[2023-06-01] MEDS: INSULIN SLIDING SCALE (NOVOLOG) 1 VIAL SQ SCH ×4 (07:51→21:43)
[2023-06-01] MEDS ORDERED: methaDONE HCL 10 MG TABLET (FOR DETOX USE ONLY) PO ONE (10:00)
[2023-06-01] MEDS: PRENATAL VITAMINS W/ FOLIC ACID TABLET (FP) PO SCH (10:13)
[2023-06-01] MEDS: PANTOPRAZOLE 40 MG TABLET PO SCH (10:13)
[2023-06-01] MEDS: NICOTINE 14 MG/24 HOURS TOPICAL PATCH TD SCH (10:14)
[2023-06-01] MEDS: ONDANSETRON *ODT* 4 MG TABLET SL PRN (10:14)
[2023-06-01 10:40] LABS: BASO % 0.1 % (0-2.0); EOS % 0.7 % (0-4.5); HEMATOCRIT 42.2 % (35.4-49); MCH 27.8 pg (25.7-33.7); MCHC 33.2 g/dl (32.0-35.9); MEAN CELL VOLUME 83.6 fl (80-96); MEAN PLT VOLUME 11.1 fl (7.5-11.1); MONO % 4.2 % (3.8-10.2); PLATELET COUNT 128 10^3/uL (134-434); RBC 5.05 M/mm3 (4.00-5.60); RDW 15.9 % (11.9-15.9); WHITE BLOOD COUNT 7.6 K/mm3 (4.0-10.0)
[2023-06-01] MEDS ORDERED: INSULIN SLIDING SCALE (NOVOLOG) 1 VIAL SQ ONE ×2 (12:15→16:35)
[2023-06-01 12:16] LABS: POTASSIUM 4.1 mmol/L (3.5-5.1)
[2023-06-01 12:19] LABS: CALCIUM 9.6 mg/dL (8.5-10.1)
[2023-06-01 12:20] LABS: ALBUMIN 3.3 g/dl (3.4-5.0); BLOOD UREA NITROGEN 17.7 mg/dL (7-18)
[2023-06-01 12:24] LABS: TOT PROT 8.3 g/dl (6.4-8.2)
[2023-06-01 12:25] LABS: BILIRUBIN,TOTAL 1.2 mg/dL (0.2-1)
[2023-06-01] MEDS: metFORMIN HCL 500 MG TABLET (FP) PO SCH (16:44)
[2023-06-01 17:44] VITALS: RESP 18
[2023-06-01] MEDS: QUEtiapine FUMARATE 50 MG TABLET PO SCH (21:42)
[2023-06-01] MEDS: hydrOXYzine PAMOATE 25 MG CAPSULE (FP) PO PRN (21:42)
[2023-06-01] MEDS: THIAMINE HCL 100 MG TABLET (FP) PO SCH (21:42)
[2023-06-01] MEDS: METHOCARBAMOL 500 MG TABLET PO PRN (21:42)
[2023-06-01] MEDS: MELATONIN 5 MG TABLETS PO SCH (21:42)
[2023-06-01] MEDS ORDERED: INSULIN (LEVEMIR) 100 UNITS/ML UNITS SQ SCH (22:00)
[2023-06-02] MEDS: metFORMIN HCL 500 MG TABLET (FP) PO SCH (06:09)
[2023-06-02] MEDS ORDERED: INSULIN SLIDING SCALE (NOVOLOG) 1 VIAL SQ ONE (08:19)
[2023-06-02] MEDS: INSULIN SLIDING SCALE (NOVOLOG) 1 VIAL SQ SCH ×2 (08:24→11:54)
[2023-06-02 09:01] VITALS: BP 132/74; PULSE 80; TEMP 98
[2023-06-02] MEDS: PRENATAL VITAMINS W/ FOLIC ACID TABLET (FP) PO SCH (10:20)
[2023-06-02] MEDS: PANTOPRAZOLE 40 MG TABLET PO SCH (10:20)
[2023-06-02] MEDS: NICOTINE 14 MG/24 HOURS TOPICAL PATCH TD SCH (10:21)
[2023-06-03] MEDS ORDERED: methaDONE HCL 10 MG TABLET (FOR DETOX USE ONLY) PO ONE (10:00)
== END 2023-06-02 12:36 | disposition left against medical advice (07) | DRG 770 ==
LOC: YASAS 10:34 → Y3N 12:20
PROVIDERS: ADMIT Allergy & Immunology; ATTEND Surgery
PROC: HZ2ZZZZ Detoxification Services for Substance Abuse Treatment (ICD-10-PCS; principal; 2023-05-30)
DX: F11.23 Opioid dependence with withdrawal (principal); F14.20 Cocaine dependence, uncomplicated; F12.20 Cannabis dependence, uncomplicated; F17.210 Nicotine dependence, cigarettes, uncomplicated; F19.24 Other psychoactive substance dependence with psychoactive substance-induced mood disorder; E11.65 Type 2 diabetes mellitus with hyperglycemia; Z79.84 Long term (current) use of oral hypoglycemic drugs; K74.60 Unspecified cirrhosis of liver; K21.9 Gastro-esophageal reflux disease without esophagitis; B18.2 Chronic viral hepatitis C; Z88.0 Allergy status to penicillin; Z91.013 Allergy to seafood; Z59.02 Unsheltered homelessness
CPT/HCPCS: 36415; 80053; 82947; 82962; 83036; 85025; 85027; 86780; 87635; Q0162

== ENCOUNTER 2023-07-11 17:04 | Inpatient (IN) | payer OTHER ==
[2023-07-11 18:33] VITALS: BMI 16.7
[2023-07-11] MEDS ORDERED: MAG HYDROX/AL HYDROX/SIMETH 30 ML UNIT-DOSE CUP PO PRN (20:15)
[2023-07-11] MEDS ORDERED: NALOXONE HCL (KLOXXADO) 8 MG SPRAY NS PRN (20:15)
[2023-07-11] MEDS ORDERED: NICOTINE POLACRILEX 2 MG GUM BUC PRN (20:15)
[2023-07-11] MEDS ORDERED: LOPERAMIDE HCL 2 MG CAPSULE PO PRN (20:15)
[2023-07-11] MEDS ORDERED: IBUPROFEN 400 MG TABLET (FP) PO PRN (20:15)
[2023-07-11] MEDS ORDERED: ACETAMINOPHEN 325 MG TABLET (FP) PO PRN (20:15)
[2023-07-11] MEDS ORDERED: BENZONATATE 200 MG CAPSULE PO PRN (20:15)
[2023-07-11] MEDS ORDERED: NALOXONE HCL 0.4 MG/ML VIAL IM PRN (20:15)
[2023-07-11] MEDS ORDERED: BENZOCAINE/MENTHOL (CHLORASEPTIC ) LOZENGE MM PRN (20:15)
[2023-07-11] MEDS ORDERED: BISMUTH SUBSALICYLATE 524 MG/30 ML PO PRN (20:15)
[2023-07-11] MEDS ORDERED: POLYETHYLENE GLYCOL (HEALTHYLAX) 3350 17 GM PACKET PO PRN (20:15)
[2023-07-11] MEDS ORDERED: ONDANSETRON *ODT* 4 MG TABLET SL PRN (20:15)
[2023-07-11] MEDS ORDERED: MAGNESIUM HYDROX 2400MG/30ML ORAL SUSPENSION 30 ML CUP PO PRN (20:15)
[2023-07-11] MEDS ORDERED: guaiFENesin 600 MG TABLET.ER (FP) PO PRN (20:15)
[2023-07-11] MEDS ORDERED: cloNIDine HCL 0.1 MG TABLET PO PRN (20:21)
[2023-07-11] MEDS ORDERED: methaDONE HCL 10 MG TABLET (FOR DETOX USE ONLY) PO ONE (20:21)
[2023-07-11] MEDS ORDERED: methaDONE HCL 10 MG TABLET (FOR DETOX USE ONLY) ONE (20:44)
[2023-07-11] MEDS: THIAMINE HCL 100 MG TABLET (FP) PO SCH (22:37)
[2023-07-11] MEDS: MELATONIN 5 MG TABLETS PO SCH (22:37)
[2023-07-12] MEDS ORDERED: methaDONE HCL 10 MG TABLET (FOR DETOX USE ONLY) PO ONE (08:28)
[2023-07-12 09:32] LABS: HEMATOCRIT 38.8 % (35.4-49); MCH 28.4 pg (25.7-33.7); MCHC 33.5 g/dl (32.0-35.9); MEAN CELL VOLUME 84.7 fl (80-96); MEAN PLT VOLUME 8.7 fl (7.5-11.1); PLATELET COUNT 86 10^3/uL (134-434); RBC 4.58 M/mm3 (4.00-5.60); RDW 16.2 % (11.9-15.9); WHITE BLOOD COUNT 4.1 K/mm3 (4.0-10.0)
[2023-07-12] MEDS: PRENATAL VITAMINS W/ FOLIC ACID TABLET (FP) PO SCH (10:26)
[2023-07-12] MEDS: diazePAM 5 MG TABLET PO PRN (10:26)
[2023-07-12] MEDS: NICOTINE 14 MG/24 HOURS TOPICAL PATCH TD SCH (10:26)
[2023-07-12 14:10] LABS: CHLORIDE 98 mmol/L (98-107); POTASSIUM 3.4 mmol/L (3.5-5.1); SODIUM 134 mmol/L (136-145)
[2023-07-12 14:38] LABS: ALBUMIN 2.8 g/dl (3.4-5.0); ANION GAP 8 MMOL/L (8-16); BLOOD UREA NITROGEN 13.1 mg/dL (7-18); CALCIUM 8.8 mg/dL (8.5-10.1); CO2 28 mmol/L (21-32)
[2023-07-12 14:41] LABS: CREATININE 0.8 mg/dL (0.55-1.3); SGPT/ALT 133 U/L (13-61)
[2023-07-12 14:42] LABS: SGOT/AST 94 U/L (15-37)
[2023-07-12 14:43] LABS: ALK PHOS 146 U/L (45-117)
[2023-07-12 14:45] LABS: GLUCOSE,RANDOM 548 mg/dL (74-106)
[2023-07-12] MEDS ORDERED: INSULIN (NOVOLOG) ASPART 100 UNITS/ML 10ML VIAL SQ ONE (15:15)
[2023-07-12] MEDS ORDERED: INSULIN SLIDING SCALE (NOVOLOG) 1 VIAL SQ ONE ×2 (15:19→17:03)
[2023-07-12] MEDS ORDERED: INSULIN SLIDING SCALE (NOVOLOG) 1 VIAL SQ SCH (16:30)
[2023-07-12] MEDS: cloNIDine HCL 0.1 MG TABLET PO PRN (17:17)
[2023-07-12] MEDS: metFORMIN HCL 500 MG TABLET (FP) PO SCH (17:17)
[2023-07-12] MEDS ORDERED: INSULIN (LEVEMIR) 100 UNITS/ML UNITS SQ SCH (22:00)
[2023-07-12] MEDS: MELATONIN 5 MG TABLETS PO SCH (23:26)
[2023-07-12] MEDS: THIAMINE HCL 100 MG TABLET (FP) PO SCH (23:27)
[2023-07-13] MEDS: metFORMIN HCL 500 MG TABLET (FP) PO SCH ×2 (06:13→16:44)
[2023-07-13] MEDS: INSULIN SLIDING SCALE (NOVOLOG) 1 VIAL SQ SCH ×3 (07:33→16:49)
[2023-07-13] MEDS ORDERED: methaDONE HCL 10 MG TABLET (FOR DETOX USE ONLY) PO ONE (10:00)
[2023-07-13] MEDS: PRENATAL VITAMINS W/ FOLIC ACID TABLET (FP) PO SCH (10:26)
[2023-07-13] MEDS: NICOTINE 14 MG/24 HOURS TOPICAL PATCH TD SCH (10:27)
[2023-07-13] MEDS: diazePAM 5 MG TABLET PO PRN ×2 (10:31→22:04)
[2023-07-13] MEDS: INSULIN (LEVEMIR) 100 UNITS/ML UNITS SQ SCH (22:03)
[2023-07-13] MEDS: THIAMINE HCL 100 MG TABLET (FP) PO SCH (22:04)
[2023-07-13] MEDS: MELATONIN 5 MG TABLETS PO SCH (22:04)
[2023-07-13] MEDS: cloNIDine HCL 0.1 MG TABLET PO PRN (22:05)
[2023-07-14] MEDS: metFORMIN HCL 500 MG TABLET (FP) PO SCH ×2 (06:24→17:25)
[2023-07-14] MEDS: INSULIN SLIDING SCALE (NOVOLOG) 1 VIAL SQ SCH ×3 (07:13→17:25)
[2023-07-14] MEDS ORDERED: methaDONE HCL 10 MG TABLET (FOR DETOX USE ONLY) PO ONE (10:00)
[2023-07-14] MEDS: PRENATAL VITAMINS W/ FOLIC ACID TABLET (FP) PO SCH (10:15)
[2023-07-14] MEDS: NICOTINE 14 MG/24 HOURS TOPICAL PATCH TD SCH (10:17)
[2023-07-14] MEDS: diazePAM 5 MG TABLET PO PRN ×2 (10:19→21:51)
[2023-07-14] MEDS: THIAMINE HCL 100 MG TABLET (FP) PO SCH (21:51)
[2023-07-14] MEDS: MELATONIN 5 MG TABLETS PO SCH (21:51)
[2023-07-14] MEDS: INSULIN (LEVEMIR) 100 UNITS/ML UNITS SQ SCH (21:52)
[2023-07-14] MEDS: DICYCLOMINE HCL 10 MG CAPSULE PO PRN (22:35)
[2023-07-15] MEDS: IBUPROFEN 600 MG TABLET (FP) PO PRN ×2 (00:27→08:51)
[2023-07-15] MEDS: metFORMIN HCL 500 MG TABLET (FP) PO SCH ×2 (06:15→16:40)
[2023-07-15] MEDS: INSULIN SLIDING SCALE (NOVOLOG) 1 VIAL SQ SCH ×3 (06:24→16:41)
[2023-07-15] MEDS: DICYCLOMINE HCL 10 MG CAPSULE PO PRN (08:51)
[2023-07-15] MEDS ORDERED: methaDONE HCL 10 MG TABLET (FOR DETOX USE ONLY) PO ONE (10:00)
[2023-07-15 10:36] LABS: HEMATOCRIT 38.9 % (35.4-49); HEMOGLOBIN 12.8 GM/dL (11.7-16.9); MCH 27.9 pg (25.7-33.7); MEAN CELL VOLUME 84.6 fl (80-96); MEAN PLT VOLUME 9.5 fl (7.5-11.1); PLATELET COUNT 91 10^3/uL (134-434); RDW 16.4 % (11.9-15.9); WHITE BLOOD COUNT 5.6 K/mm3 (4.0-10.0)
[2023-07-15 10:37] LABS: POTASSIUM 3.3 mmol/L (3.5-5.1)
[2023-07-15] MEDS: NICOTINE 14 MG/24 HOURS TOPICAL PATCH TD SCH (10:37)
[2023-07-15] MEDS: PRENATAL VITAMINS W/ FOLIC ACID TABLET (FP) PO SCH (10:38)
[2023-07-15 10:40] LABS: ALBUMIN 2.6 g/dl (3.4-5.0); BLOOD UREA NITROGEN 13.8 mg/dL (7-18); CALCIUM 8.8 mg/dL (8.5-10.1)
[2023-07-15 10:43] LABS: CREATININE 0.5 mg/dL (0.55-1.3)
[2023-07-15 10:45] LABS: BILIRUBIN,TOTAL 0.5 mg/dL (0.2-1); TOT PROT 6.8 g/dl (6.4-8.2)
[2023-07-15] MEDS ORDERED: POTASSIUM CHLORIDE ORAL LIQUID 20 MEQ/15 ML PO SCH (11:00)
[2023-07-15] MEDS ORDERED: FAMOTIDINE 20 MG TABLET PO ONE (12:47)
[2023-07-15 13:07] VITALS: PULSE 92
[2023-07-15] MEDS ORDERED: LACTULOSE 20 GM/30 ML UDC (FOR ORAL USE ONLY) PO ONE (15:46)
[2023-07-15 17:00] VITALS: BP 165/102; RESP 19; TEMP 98.9
[2023-07-16] MEDS ORDERED: methaDONE HCL 10 MG TABLET (FOR DETOX USE ONLY) PO ONE (10:00)
== END 2023-07-15 19:24 | disposition left against medical advice (07) | DRG 770 ==
LOC: YASAS 17:04 → Y3N 21:53
PROVIDERS: ADMIT Allergy & Immunology; ATTEND Surgery
PROC: HZ2ZZZZ Detoxification Services for Substance Abuse Treatment (ICD-10-PCS; principal; 2023-07-11)
DX: F11.23 Opioid dependence with withdrawal (principal); F14.20 Cocaine dependence, uncomplicated; F17.210 Nicotine dependence, cigarettes, uncomplicated; E87.6 Hypokalemia; E10.65 Type 1 diabetes mellitus with hyperglycemia; Z79.4 Long term (current) use of insulin; B18.2 Chronic viral hepatitis C; Z88.0 Allergy status to penicillin
CPT/HCPCS: 36415; 80053; 82962; 83036; 85027; 86780; 87635

== ENCOUNTER 2023-07-12 19:02 | Emergency (ER) | payer OTHER ==
[2023-07-12 20:05] VITALS: BMI 16.7
[2023-07-12] MEDS ORDERED: LACTATED RINGERS SOLUTION 1000 ML INFUS.BAG IV ONE ×2 (20:17→23:15)
[2023-07-12 20:49] LABS: PH,URINE 6.5 (5.0-8.0); URINE APPEARANCE CLEAR; URINE BILIRUBIN NEGATIVE (NEGATIVE); URINE COLOR YELLOW; URINE GLUCOSE (UA) 3+ (NEGATIVE); URINE KETONE NEGATIVE (NEGATIVE); URINE LEUK ESTERASE NEGATIVE (NEGATIVE); URINE NITRITE NEGATIVE (NEGATIVE); URINE PROTEIN NEGATIVE (NEGATIVE); URINE UROBILINOGEN 0.2 mg/dL (0.2-1.0)
[2023-07-12 20:55] LABS: EPI CELLS 3 /uL (0-25.1); HYALINE CASTS 0 /uL (0-3.1); URINE BACTERIA 61 /uL (0-1359); URINE RBC 13 /uL (0-23.9); URINE WBC 9 /uL (0-25.8)
[2023-07-12 21:01] LABS: VENOUS BASE EXCESS 3.9 mmol/L (-2-2); VENOUS O2 SATURATION 35.6 % (70-80); VENOUS PCO2 52.4 mmHg (38-52); VENOUS PH 7.379 (7.310-7.410)
[2023-07-12 21:06] LABS: BASO % 0.2 % (0-2.0); EOS % 0.1 % (0-4.5); HEMATOCRIT 41.6 % (35.4-49); HEMOGLOBIN 13.5 GM/dL (11.7-16.9); LYMPH % 25.5 % (8-40); MCH 28.4 pg (25.7-33.7); MCHC 32.5 g/dl (32.0-35.9); MEAN CELL VOLUME 87.4 fl (80-96); MEAN PLT VOLUME 8.9 fl (7.5-11.1); MONO % 7.4 % (3.8-10.2); NEUT % 66.8 % (42.8-82.8); PLATELET COUNT 93 10^3/uL (134-434); RBC 4.76 M/mm3 (4.00-5.60); WHITE BLOOD COUNT 5.6 K/mm3 (4.0-10.0)
[2023-07-12 21:14] LABS: INR 0.94 (0.83-1.09); PROTHROMBIN TIME (PATIENT) 10.9 SEC (9.7-13.0)
[2023-07-12 21:16] LABS: ACTIVATED PTT 27.4 SECONDS (25.2-36.5)
[2023-07-12 21:29] LABS: CHLORIDE 94 mmol/L (98-107); POTASSIUM 3.6 mmol/L (3.5-5.1); SODIUM 136 mmol/L (136-145)
[2023-07-12 21:31] LABS: CALCIUM 9.1 mg/dL (8.5-10.1)
[2023-07-12 21:32] LABS: ALBUMIN 2.6 g/dl (3.4-5.0); ANION GAP 10 MMOL/L (8-16); CO2 32 mmol/L (21-32); LIPASE 207 U/L (73-393); MAGNESIUM 1.7 mg/dL (1.8-2.4)
[2023-07-12 21:34] LABS: SGPT/ALT 146 U/L (13-61)
[2023-07-12 21:35] LABS: CREATININE 1.1 mg/dL (0.55-1.3); SGOT/AST 101 U/L (15-37)
[2023-07-12 21:36] LABS: BILIRUBIN,TOTAL 0.6 mg/dL (0.2-1); TOT PROT 7.2 g/dl (6.4-8.2)
[2023-07-12 21:38] LABS: ALK PHOS 174 U/L (45-117)
[2023-07-12 21:50] LABS: GLUCOSE,RANDOM 648 mg/dL (74-106)
[2023-07-12] MEDS ORDERED: INSULIN REGULAR HUMAN 100 UNITS/ML *VIAL IVPUSH ONE (21:58)
[2023-07-13 00:02] VITALS: BP 146/92; PULSE 65; RESP 15; TEMP 97.9
[2023-07-13] MEDS ORDERED: INSULIN REGULAR HUMAN 100 UNITS/ML *VIAL SQ ONE (00:57)
== END 2023-07-13 02:24 | disposition home or self-care (01) ==
LOC: JER 19:02
PROC: 3E013VG Introduction of Insulin into Subcutaneous Tissue, Percutaneous Approach (ICD-10-PCS; principal; 2023-07-12)
PROC: 3E013VG Introduction of Insulin into Subcutaneous Tissue, Percutaneous Approach (ICD-10-PCS; 2023-07-13)
DX: E11.65 Type 2 diabetes mellitus with hyperglycemia (principal)
CPT/HCPCS: 36415; 80053; 81003; 82010; 82140; 82803; 82962; 83605; 83690; 83735; 85025; 85610; 85730; 93005; 93010; 99284-25

== ENCOUNTER 2023-08-04 19:25 | Inpatient (IN) | payer OTHER ==
[2023-08-05 00:14] VITALS: BMI 20.3
[2023-08-05] MEDS ORDERED: BISMUTH SUBSALICYLATE 524 MG/30 ML PO PRN (00:31)
[2023-08-05] MEDS ORDERED: NALOXONE HCL (KLOXXADO) 8 MG SPRAY NS PRN (00:31)
[2023-08-05] MEDS ORDERED: BENZONATATE 200 MG CAPSULE PO PRN (00:31)
[2023-08-05] MEDS ORDERED: ACETAMINOPHEN 325 MG TABLET (FP) PO PRN (00:31)
[2023-08-05] MEDS ORDERED: MAGNESIUM HYDROX 2400MG/30ML ORAL SUSPENSION 30 ML CUP PO PRN (00:31)
[2023-08-05] MEDS ORDERED: BENZOCAINE/MENTHOL (CHLORASEPTIC ) LOZENGE MM PRN (00:31)
[2023-08-05] MEDS ORDERED: POLYETHYLENE GLYCOL (HEALTHYLAX) 3350 17 GM PACKET PO PRN (00:31)
[2023-08-05] MEDS ORDERED: MAG HYDROX/AL HYDROX/SIMETH 30 ML UNIT-DOSE CUP PO PRN (00:31)
[2023-08-05] MEDS ORDERED: NICOTINE POLACRILEX 2 MG GUM BUC PRN (00:31)
[2023-08-05] MEDS ORDERED: ONDANSETRON *ODT* 4 MG TABLET SL PRN (00:31)
[2023-08-05] MEDS ORDERED: IBUPROFEN 400 MG TABLET (FP) PO PRN (00:31)
[2023-08-05] MEDS ORDERED: LOPERAMIDE HCL 2 MG CAPSULE PO PRN (00:31)
[2023-08-05] MEDS ORDERED: guaiFENesin 600 MG TABLET.ER (FP) PO PRN (00:31)
[2023-08-05] MEDS ORDERED: NALOXONE HCL 0.4 MG/ML VIAL IM PRN (00:31)
[2023-08-05] MEDS: INSULIN SLIDING SCALE (NOVOLOG) 1 VIAL SQ SCH ×4 (06:56→23:00)
[2023-08-05] MEDS: metFORMIN HCL 500 MG TABLET (FP) PO SCH ×2 (06:56→17:30)
[2023-08-05] MEDS ORDERED: methaDONE HCL 10 MG TABLET (FOR DETOX USE ONLY) PO ONE ×2 (08:00→10:00)
[2023-08-05] MEDS: METHOCARBAMOL 500 MG TABLET PO PRN ×2 (09:41→17:36)
[2023-08-05] MEDS: PRENATAL VITAMINS W/ FOLIC ACID TABLET (FP) PO SCH (09:42)
[2023-08-05] MEDS: DICYCLOMINE HCL 10 MG CAPSULE PO PRN (09:43)
[2023-08-05] MEDS: NICOTINE 14 MG/24 HOURS TOPICAL PATCH TD SCH (09:47)
[2023-08-05] MEDS ORDERED: methaDONE HCL 10 MG TABLET PO ONE (10:00)
[2023-08-05 12:59] VITALS: RESP 16
[2023-08-05] MEDS: cloNIDine HCL 0.1 MG TABLET PO PRN (17:36)
[2023-08-05] MEDS: IBUPROFEN 600 MG TABLET (FP) PO PRN (17:36)
[2023-08-05] MEDS: hydrOXYzine PAMOATE 25 MG CAPSULE (FP) PO PRN (17:38)
[2023-08-05] MEDS ORDERED: MELATONIN 5 MG TABLETS PO SCH (22:00)
[2023-08-05] MEDS ORDERED: SUVOREXANT 10 MG TABLET PO PRN (22:00)
[2023-08-05] MEDS: THIAMINE HCL 100 MG TABLET (FP) PO SCH (23:00)
[2023-08-06] MEDS: INSULIN SLIDING SCALE (NOVOLOG) 1 VIAL SQ SCH ×5 (00:08→21:12)
[2023-08-06] MEDS: hydrOXYzine PAMOATE 25 MG CAPSULE (FP) PO PRN ×2 (00:17→16:52)
[2023-08-06] MEDS: METHOCARBAMOL 500 MG TABLET PO PRN ×2 (00:17→16:52)
[2023-08-06] MEDS: IBUPROFEN 600 MG TABLET (FP) PO PRN (00:17)
[2023-08-06] MEDS: metFORMIN HCL 500 MG TABLET (FP) PO SCH ×2 (06:09→16:52)
[2023-08-06] MEDS: PRENATAL VITAMINS W/ FOLIC ACID TABLET (FP) PO SCH (09:47)
[2023-08-06] MEDS: NICOTINE 14 MG/24 HOURS TOPICAL PATCH TD SCH (09:49)
[2023-08-06] MEDS: DICYCLOMINE HCL 10 MG CAPSULE PO PRN (09:50)
[2023-08-06] MEDS: cloNIDine HCL 0.1 MG TABLET PO PRN (16:52)
[2023-08-06] MEDS: THIAMINE HCL 100 MG TABLET (FP) PO SCH (21:12)
[2023-08-07] MEDS: INSULIN SLIDING SCALE (NOVOLOG) 1 VIAL SQ SCH ×2 (06:06→11:09)
[2023-08-07] MEDS: metFORMIN HCL 500 MG TABLET (FP) PO SCH (06:06)
[2023-08-07 09:50] VITALS: BP 150/96; PULSE 86; TEMP 98.6
[2023-08-07] MEDS ORDERED: methaDONE HCL 10 MG TABLET (FOR DETOX USE ONLY) PO ONE (10:00)
[2023-08-07] MEDS: PRENATAL VITAMINS W/ FOLIC ACID TABLET (FP) PO SCH (10:21)
[2023-08-07] MEDS: NICOTINE 14 MG/24 HOURS TOPICAL PATCH TD SCH (10:23)
[2023-08-07] MEDS: DICYCLOMINE HCL 10 MG CAPSULE PO PRN (10:23)
[2023-08-09] MEDS ORDERED: methaDONE HCL 10 MG TABLET (FOR DETOX USE ONLY) PO ONE (10:00)
== END 2023-08-07 12:40 | disposition left against medical advice (07) | DRG 770 ==
LOC: YASAS 19:25 → Y3N 08-05 02:26
PROVIDERS: ADMIT Allergy & Immunology; ATTEND Surgery
PROC: HZ2ZZZZ Detoxification Services for Substance Abuse Treatment (ICD-10-PCS; principal; 2023-08-05)
DX: F11.23 Opioid dependence with withdrawal (principal); F14.20 Cocaine dependence, uncomplicated; F17.210 Nicotine dependence, cigarettes, uncomplicated; F19.282 Other psychoactive substance dependence with psychoactive substance-induced sleep disorder; F19.24 Other psychoactive substance dependence with psychoactive substance-induced mood disorder; K21.9 Gastro-esophageal reflux disease without esophagitis; Z86.19 Personal history of other infectious and parasitic diseases; Z88.0 Allergy status to penicillin
CPT/HCPCS: 82962; 87635

== ENCOUNTER 2024-04-05 16:41 | Inpatient (IN) | payer OTHER ==
[2024-04-05 17:24] VITALS: BMI 20.3
[2024-04-05] MEDS ORDERED: IBUPROFEN 600 MG TABLET (FP) PO PRN (19:00)
[2024-04-05] MEDS ORDERED: POLYETHYLENE GLYCOL (HEALTHYLAX) 3350 17 GM PACKET PO PRN (19:00)
[2024-04-05] MEDS ORDERED: MAGNESIUM HYDROX 2400MG/30ML ORAL SUSPENSION 30 ML CUP PO PRN (19:00)
[2024-04-05] MEDS ORDERED: NALOXONE HCL (KLOXXADO) 8 MG SPRAY NS PRN (19:00)
[2024-04-05] MEDS ORDERED: METHOCARBAMOL 500 MG TABLET PO PRN (19:00)
[2024-04-05] MEDS ORDERED: ACETAMINOPHEN 325 MG TABLET (FP) PO PRN (19:00)
[2024-04-05] MEDS ORDERED: BENZOCAINE/MENTHOL (CHLORASEPTIC ) LOZENGE MM PRN (19:00)
[2024-04-05] MEDS ORDERED: ONDANSETRON *ODT* 4 MG TABLET SL PRN (19:00)
[2024-04-05] MEDS ORDERED: DICYCLOMINE HCL 10 MG CAPSULE PO PRN (19:00)
[2024-04-05] MEDS ORDERED: NALOXONE HCL 0.4 MG/ML VIAL IM PRN (19:00)
[2024-04-05] MEDS ORDERED: guaiFENesin 600 MG TABLET.ER (FP) PO PRN (19:00)
[2024-04-05] MEDS ORDERED: BENZONATATE 200 MG CAPSULE PO PRN (19:00)
[2024-04-05] MEDS ORDERED: IBUPROFEN 400 MG TABLET (FP) PO PRN (19:00)
[2024-04-05] MEDS ORDERED: MAG HYDROX/AL HYDROX/SIMETH 30 ML UNIT-DOSE CUP PO PRN (19:00)
[2024-04-05] MEDS ORDERED: LOPERAMIDE HCL 2 MG CAPSULE PO PRN (19:00)
[2024-04-05] MEDS ORDERED: hydrOXYzine PAMOATE 25 MG CAPSULE (FP) PO PRN (19:00)
[2024-04-05] MEDS ORDERED: LORazepam 1 MG TABLET PO PRN (19:00)
[2024-04-05] MEDS ORDERED: BISMUTH SUBSALICYLATE 524 MG/30 ML PO PRN (19:00)
[2024-04-05] MEDS ORDERED: cloNIDine HCL 0.1 MG TABLET PO PRN (19:04)
[2024-04-05] MEDS: THIAMINE 100 MG TABLET PO SCH (22:37)
[2024-04-05] MEDS: LORazepam 2 MG TABLET PO SCH (22:37)
[2024-04-05] MEDS: MELATONIN 5 MG TABLETS PO SCH (22:38)
[2024-04-06 09:24] VITALS: TEMP 97.6
[2024-04-06] MEDS: PRENATAL VITAMINS W/ FOLIC ACID TABLET (FP) PO SCH (10:49)
[2024-04-06] MEDS: levETIRAcetam 250 MG TABLET PO ONE (15:43)
[2024-04-06] MEDS: INSULIN (NOVOLOG) ASPART 100 UNITS/ML 10ML VIAL SQ ONE ×2 (15:44→17:26)
[2024-04-06] MEDS: INSULIN ASPART SLIDING SCALE (NOVOLOG) 1 VIAL SQ SCH (16:54)
[2024-04-06 17:10] VITALS: BP 142/81; PULSE 55; RESP 16
[2024-04-06] MEDS: metFORMIN HCL 500 MG TABLET (FP) PO SCH (17:26)
[2024-04-06] MEDS: levETIRAcetam 250 MG TABLET PO SCH (22:17)
[2024-04-07] MEDS: LORazepam 1 MG TABLET PO SCH (06:06)
[2024-04-07] MEDS ORDERED: methaDONE HCL 10 MG TABLET (FOR DETOX USE ONLY) PO ONE (10:00)
[2024-04-08] MEDS ORDERED: LORazepam 0.5 MG TABLET PO PRN
[2024-04-08] MEDS ORDERED: LORazepam 0.5 MG TABLET PO SCH (05:00)
[2024-04-09] MEDS ORDERED: LORazepam 0.5 MG TABLET PO ONE (05:00)
[2024-04-09] MEDS ORDERED: methaDONE HCL 10 MG TABLET (FOR DETOX USE ONLY) PO ONE (10:00)
== END 2024-04-07 07:52 | disposition short-term general hospital (02) | DRG 773 ==
LOC: YASAS 16:41 → Y6N 18:09 → Y3N 18:25
PROVIDERS: ADMIT Allergy & Immunology; ATTEND Surgery
PROC: HZ2ZZZZ Detoxification Services for Substance Abuse Treatment (ICD-10-PCS; principal; 2024-04-05)
DX: F11.23 Opioid dependence with withdrawal (principal); F10.230 Alcohol dependence with withdrawal, uncomplicated; F17.210 Nicotine dependence, cigarettes, uncomplicated; F14.20 Cocaine dependence, uncomplicated; F12.20 Cannabis dependence, uncomplicated; F19.24 Other psychoactive substance dependence with psychoactive substance-induced mood disorder; E11.65 Type 2 diabetes mellitus with hyperglycemia; Z79.4 Long term (current) use of insulin; B18.2 Chronic viral hepatitis C; H54.61 Unqualified visual loss, right eye, normal vision left eye; Z99.89 Dependence on other enabling machines and devices; Z88.0 Allergy status to penicillin
CPT/HCPCS: 80305; 80307; 82962; 93005; 93010

== ENCOUNTER 2024-06-11 04:26 | Inpatient (IN) | payer OTHER ==
[2024-06-11 04:46] VITALS: BMI 18.9
[2024-06-11] MEDS ORDERED: ACETAMINOPHEN 325 MG TABLET (FP) PO PRN (06:42)
[2024-06-11] MEDS ORDERED: BISMUTH SUBSALICYLATE 262 MG/15 ML BTL PO PRN (06:42)
[2024-06-11] MEDS ORDERED: LOPERAMIDE HCL 2 MG CAPSULE PO PRN (06:42)
[2024-06-11] MEDS ORDERED: IBUPROFEN 400 MG TABLET (FP) PO PRN (06:42)
[2024-06-11] MEDS ORDERED: NICOTINE POLACRILEX 2 MG GUM BUC PRN (06:42)
[2024-06-11] MEDS ORDERED: BENZONATATE 200 MG CAPSULE PO PRN (06:42)
[2024-06-11] MEDS ORDERED: IBUPROFEN 600 MG TABLET (FP) PO PRN (06:42)
[2024-06-11] MEDS ORDERED: hydrOXYzine PAMOATE 25 MG CAPSULE (FP) PO PRN (06:42)
[2024-06-11] MEDS ORDERED: NALOXONE (NARCAN) HCL 4 MG/0.1 ML SPRAY NS PRN (06:42)
[2024-06-11] MEDS ORDERED: guaiFENesin 600 MG TABLET.ER (FP) PO PRN (06:42)
[2024-06-11] MEDS ORDERED: BENZOCAINE/MENTHOL (CHLORASEPTIC ) LOZENGE MM PRN (06:42)
[2024-06-11] MEDS ORDERED: NALOXONE HCL 0.4 MG/ML VIAL IM PRN (06:42)
[2024-06-11] MEDS ORDERED: POLYETHYLENE GLYCOL (HEALTHYLAX) 3350 17 GM PACKET PO PRN (06:42)
[2024-06-11] MEDS ORDERED: MAG HYDROX/AL HYDROX/SIMETH 30 ML UNIT-DOSE CUP PO PRN (06:42)
[2024-06-11] MEDS ORDERED: ONDANSETRON *ODT* 4 MG TABLET SL PRN (06:42)
[2024-06-11] MEDS ORDERED: MAGNESIUM HYDROX 2400MG/30ML ORAL SUSPENSION 30 ML CUP PO PRN (06:42)
[2024-06-11] MEDS ORDERED: DICYCLOMINE HCL 10 MG CAPSULE PO PRN (06:42)
[2024-06-11] MEDS ORDERED: diazePAM 5 MG TABLET PO PRN (09:44)
[2024-06-11] MEDS: DOXYCYCLINE HYCLATE 100 MG TABLET PO SCH (09:50)
[2024-06-11] MEDS: NICOTINE 14 MG/24 HOURS TOPICAL PATCH TD SCH (09:50)
[2024-06-11] MEDS: PRENATAL VITAMINS W/ FOLIC ACID TABLET (FP) PO SCH (09:50)
[2024-06-11] MEDS: levETIRAcetam 250 MG TABLET PO SCH (09:50)
[2024-06-11] MEDS: metFORMIN HCL 500 MG TABLET (FP) PO SCH (09:50)
[2024-06-11] MEDS ORDERED: cloNIDine HCL 0.1 MG TABLET PO PRN (10:21)
[2024-06-11] MEDS: methaDONE HCL 10 MG TABLET (FOR DETOX USE ONLY) PO ONE (10:57)
[2024-06-11] MEDS: diazePAM 5 MG TABLET PO SCH (10:57)
[2024-06-11] MEDS: METHOCARBAMOL 500 MG TABLET PO PRN (10:58)
[2024-06-11] MEDS: INSULIN (NOVOLOG) ASPART 100 UNITS/ML 10ML VIAL SQ ONE (12:56)
[2024-06-11] MEDS: BACITRACIN 0.9 GM PACKET TP SCH (14:17)
[2024-06-11] MEDS: SULFAMETHOXAZOLE/TRIMETHOPRIM 800MG/160MG D.S. TABLET PO SCH (14:17)
[2024-06-11] MEDS: INSULIN ASPART SLIDING SCALE (NOVOLOG) 1 VIAL SQ SCH (16:54)
[2024-06-11] MEDS: INSULIN (LEVEMIR) 100 UNITS/ML UNITS SQ SCH (21:08)
[2024-06-11] MEDS: MELATONIN 5 MG TABLETS PO SCH (22:29)
[2024-06-11] MEDS: traZODone HCL 50 MG TABLET (FP) PO SCH (22:29)
[2024-06-11] MEDS: THIAMINE 100 MG TABLET PO SCH (22:29)
[2024-06-12 10:19] LABS: HEMATOCRIT 31.4 % (35.4-49); HEMOGLOBIN 10.4 GM/dL (11.7-16.9); MCH 27.6 pg (25.7-33.7); MCHC 33.2 g/dl (32.0-35.9); MEAN CELL VOLUME 83.2 fl (80-96); MEAN PLT VOLUME 9.3 fl (7.5-11.1); PLATELET COUNT 184 10^3/uL (134-434); RBC 3.78 M/mm3 (4.00-5.60); RDW 16.9 % (11.9-15.9); WHITE BLOOD COUNT 5.9 K/mm3 (4.0-10.0)
[2024-06-12] MEDS: INSULIN (LEVEMIR) 100 UNITS/ML UNITS SQ SCH (21:18)
[2024-06-13] MEDS: diazePAM 5 MG TABLET PO SCH (06:17)
[2024-06-13] MEDS: methaDONE HCL 10 MG TABLET (FOR DETOX USE ONLY) PO ONE (10:38)
[2024-06-13] MEDS: INSULIN (LEVEMIR) 100 UNITS/ML UNITS SQ SCH (21:24)
[2024-06-14] MEDS: diazePAM 5 MG TABLET PO SCH (06:20)
[2024-06-14] MEDS ORDERED: INSULIN ASPART SLIDING SCALE (NOVOLOG) 1 VIAL SQ ONE (17:09)
[2024-06-14] MEDS: INSULIN (NOVOLOG) ASPART 100 UNITS/ML 10ML VIAL SQ ONE (17:20)
[2024-06-14] MEDS: INSULIN (LEVEMIR) 100 UNITS/ML UNITS SQ SCH (23:04)
[2024-06-15] MEDS: diazePAM 5 MG TABLET PO ONE (06:17)
[2024-06-15] MEDS: INSULIN ASPART SLIDING SCALE (NOVOLOG) 1 VIAL SQ SCH (06:29)
[2024-06-15] MEDS: methaDONE HCL 10 MG TABLET (FOR DETOX USE ONLY) PO ONE (10:35)
[2024-06-16 13:09] VITALS: BP 136/89; PULSE 92; RESP 18; TEMP 98
== END 2024-06-16 15:20 | disposition home or self-care (01) | DRG 773 ==
LOC: YASAS 04:26 → Y3N 06:55
PROVIDERS: ADMIT Allergy & Immunology; ATTEND Surgery
PROC: HZ2ZZZZ Detoxification Services for Substance Abuse Treatment (ICD-10-PCS; principal; 2024-06-11)
DX: F11.23 Opioid dependence with withdrawal (principal); F10.230 Alcohol dependence with withdrawal, uncomplicated; F13.20 Sedative, hypnotic or anxiolytic dependence, uncomplicated; F14.20 Cocaine dependence, uncomplicated; F12.20 Cannabis dependence, uncomplicated; F17.210 Nicotine dependence, cigarettes, uncomplicated; F19.24 Other psychoactive substance dependence with psychoactive substance-induced mood disorder; G47.00 Insomnia, unspecified; H54.61 Unqualified visual loss, right eye, normal vision left eye; K21.9 Gastro-esophageal reflux disease without esophagitis; Z79.4 Long term (current) use of insulin; B18.2 Chronic viral hepatitis C; Z86.19 Personal history of other infectious and parasitic diseases; Z88.0 Allergy status to penicillin
CPT/HCPCS: 36415; 80305; 82962; 85027; 86780; 93005; 93010; 99281-25

== ENCOUNTER 2024-08-13 16:12 | Inpatient (IN) | payer OTHER ==
[2024-08-13 17:02] VITALS: BMI 20.2
[2024-08-13] MEDS ORDERED: NALOXONE (NARCAN) HCL 4 MG/0.1 ML SPRAY NS PRN (17:54)
[2024-08-13] MEDS ORDERED: MAG HYDROX/AL HYDROX/SIMETH 30 ML UNIT-DOSE CUP PO PRN (17:54)
[2024-08-13] MEDS ORDERED: IBUPROFEN 400 MG TABLET (FP) PO PRN (17:54)
[2024-08-13] MEDS ORDERED: POLYETHYLENE GLYCOL (HEALTHYLAX) 3350 17 GM PACKET PO PRN (17:54)
[2024-08-13] MEDS ORDERED: hydrOXYzine PAMOATE 25 MG CAPSULE (FP) PO PRN (17:54)
[2024-08-13] MEDS ORDERED: BENZONATATE 200 MG CAPSULE PO PRN (17:54)
[2024-08-13] MEDS ORDERED: guaiFENesin 600 MG TABLET.ER (FP) PO PRN (17:54)
[2024-08-13] MEDS ORDERED: BENZOCAINE/MENTHOL (CHLORASEPTIC ) LOZENGE MM PRN (17:54)
[2024-08-13] MEDS ORDERED: DICYCLOMINE HCL 10 MG CAPSULE PO PRN (17:54)
[2024-08-13] MEDS ORDERED: NALOXONE HCL 0.4 MG/ML VIAL IM PRN (17:54)
[2024-08-13] MEDS ORDERED: LOPERAMIDE HCL 2 MG CAPSULE PO PRN (17:54)
[2024-08-13] MEDS ORDERED: BISMUTH SUBSALICYLATE 524 MG/30 ML PO PRN (17:54)
[2024-08-13] MEDS ORDERED: MAGNESIUM HYDROX 2400MG/30ML ORAL SUSPENSION 30 ML CUP PO PRN (17:54)
[2024-08-13] MEDS ORDERED: ONDANSETRON *ODT* 4 MG TABLET SL PRN (17:54)
[2024-08-13] MEDS ORDERED: ACETAMINOPHEN 325 MG TABLET (FP) PO PRN (17:54)
[2024-08-13] MEDS ORDERED: NICOTINE POLACRILEX 2 MG GUM BUC PRN (17:54)
[2024-08-13] MEDS ORDERED: cloNIDine HCL 0.1 MG TABLET PO PRN (18:02)
[2024-08-13] MEDS ORDERED: methaDONE HCL 10 MG TABLET (FOR DETOX USE ONLY) PO ONE (18:02)
[2024-08-13] MEDS: methaDONE HCL 10 MG TABLET (FOR DETOX USE ONLY) PO ONE (19:42)
[2024-08-13] MEDS: IBUPROFEN 600 MG TABLET (FP) PO PRN (19:43)
[2024-08-13] MEDS: THIAMINE 100 MG TABLET PO SCH (22:23)
[2024-08-13] MEDS: MELATONIN 5 MG TABLETS PO SCH (22:23)
[2024-08-14] MEDS: INSULIN ASPART SLIDING SCALE (NOVOLOG) 1 VIAL SQ SCH (06:51)
[2024-08-14] MEDS ORDERED: levETIRAcetam 500 MG TABLET (FP) PO SCH (10:00)
[2024-08-14] MEDS: PRENATAL VITAMINS W/ FOLIC ACID TABLET (FP) PO SCH (10:36)
[2024-08-14] MEDS: NICOTINE 14 MG/24 HOURS TOPICAL PATCH TD SCH (10:36)
[2024-08-14 14:47] LABS: HEMATOCRIT 27.2 % (35.4-49); HEMOGLOBIN 8.8 GM/dL (11.7-16.9); MCH 26.9 pg (25.7-33.7); MCHC 32.5 g/dl (32.0-35.9); MEAN CELL VOLUME 82.7 fl (80-96); MEAN PLT VOLUME 8.6 fl (7.5-11.1); PLATELET COUNT 181 10^3/uL (134-434); RBC 3.29 M/mm3 (4.00-5.60); RDW 17.9 % (11.9-15.9); WHITE BLOOD COUNT 5.6 K/mm3 (4.0-10.0)
[2024-08-14 14:48] LABS: CHLORIDE 102 mmol/L (98-107); POTASSIUM 4.1 mmol/L (3.5-5.1); SODIUM 136 mmol/L (136-145)
[2024-08-14 14:50] LABS: ALBUMIN 2.4 g/dl (3.4-5.0); BLOOD UREA NITROGEN 15.4 mg/dL (7-18); GLUCOSE,RANDOM 358 mg/dL (74-106)
[2024-08-14 14:53] LABS: CREATININE 0.6 mg/dL (0.55-1.3); SGOT/AST 113 U/L (15-37); SGPT/ALT 91 U/L (13-61)
[2024-08-14 14:55] LABS: BILIRUBIN,TOTAL 0.2 mg/dL (0.2-1); TOT PROT 7.2 g/dl (6.4-8.2)
[2024-08-14 14:56] LABS: ALK PHOS 99 U/L (45-117)
[2024-08-14 15:01] LABS: ANION GAP 5 mmol/L (4-13); CO2 30 mmol/L (21-32)
[2024-08-14] MEDS ORDERED: INSULIN (NOVOLOG) ASPART 100 UNITS/ML 10ML VIAL ONE (16:56)
[2024-08-14] MEDS: metFORMIN HCL 500 MG TABLET (FP) PO SCH (16:57)
[2024-08-14] MEDS: INSULIN (LEVEMIR) 100 UNITS/ML UNITS SQ SCH (21:53)
[2024-08-14] MEDS: SUVOREXANT 10 MG TABLET PO PRN (22:00)
[2024-08-15 06:36] VITALS: RESP 16
[2024-08-15 09:14] VITALS: BP 128/91; PULSE 96; TEMP 98
[2024-08-15] MEDS: METHOCARBAMOL 500 MG TABLET PO PRN (09:55)
[2024-08-15] MEDS: methaDONE HCL 10 MG TABLET (FOR DETOX USE ONLY) PO ONE (10:00)
[2024-08-15] MEDS ORDERED: INSULIN (NOVOLOG) ASPART 100 UNITS/ML 10ML VIAL ONE (11:44)
[2024-08-17] MEDS ORDERED: methaDONE HCL 10 MG TABLET (FOR DETOX USE ONLY) PO ONE (10:00)
== END 2024-08-15 14:40 | disposition left against medical advice (07) | DRG 770 ==
LOC: YASAS 16:12 → Y6N 18:30
PROVIDERS: ADMIT Allergy & Immunology; ATTEND Surgery
PROC: HZ2ZZZZ Detoxification Services for Substance Abuse Treatment (ICD-10-PCS; principal; 2024-08-13)
DX: F11.23 Opioid dependence with withdrawal (principal); F14.20 Cocaine dependence, uncomplicated; F17.210 Nicotine dependence, cigarettes, uncomplicated; F19.282 Other psychoactive substance dependence with psychoactive substance-induced sleep disorder; F32.A Depression, unspecified; G40.909 Epilepsy, unspecified, not intractable, without status epilepticus; H54.8 Legal blindness, as defined in USA; E11.9 Type 2 diabetes mellitus without complications; Z79.4 Long term (current) use of insulin; Z79.84 Long term (current) use of oral hypoglycemic drugs; K21.9 Gastro-esophageal reflux disease without esophagitis; B18.2 Chronic viral hepatitis C; Z86.59 Personal history of other mental and behavioral disorders; Z88.0 Allergy status to penicillin
CPT/HCPCS: 36415; 80053; 80305; 80307; 82962; 85027; 86780